=== PATIENT | female | born 1950 | race Caucasian/White ===

== ENCOUNTER → 2019-06-17 00:01 | Outpatient (RCR) | payer MEDICARE, SELFPAY | LOC: ONCMED 06-02 06:06 | PROVIDERS: Family Provider Internal Medicine; Visit Provider Internal Medicine Medical Oncology | DX: Z51.11 Encounter for antineoplastic chemotherapy (principal); C18.4 Malignant neoplasm of transverse colon; C78.02 Secondary malignant neoplasm of left lung; C78.01 Secondary malignant neoplasm of right lung; C78.7 Secondary malignant neoplasm of liver and intrahepatic bile duct; R97.0 Elevated carcinoembryonic antigen [CEA]; I10 Essential (primary) hypertension; E78.5 Hyperlipidemia, unspecified; E11.9 Type 2 diabetes mellitus without complications; F32.9 Major depressive disorder, single episode, unspecified; Z87.19 Personal history of other diseases of the digestive system; Z86.73 Personal history of transient ischemic attack (TIA), and cerebral infarction without residual deficits; Z86.718 Personal history of other venous thrombosis and embolism; Z90.49 Acquired absence of other specified parts of digestive tract; Z86.711 Personal history of pulmonary embolism; Z79.01 Long term (current) use of anticoagulants; Z79.899 Other long term (current) drug therapy ==

== ENCOUNTER 2019-07-03 06:17 | Outpatient (RCR) | payer MEDICARE, SELFPAY ==
[2019-07-01 08:30] LABS: Basophils % 0.4 %; Eosinophils # 0.1 10^3/uL (0.0-0.8); Eosinophils % 2.7 %; Hemoglobin 11.1 g/dL (11.5-15.3); Lymphocytes # 1.5 10^3/uL (0.8-4.8); Lymphocytes % 30.2 %; Mean Corpuscular HGB Conc 32.6 g/dL (30.0-36.0); Mean Corpuscular Hemoglobin 29.8 pg (28.0-34.0); Mean Corpuscular Volume 91.4 fL (81-99); Monocytes # 0.4 10^3/uL (0.2-0.9); Monocytes % 8.7 %; Neutrophils # 2.8 10^3/uL (1.8-7.7); Neutrophils % 57.8 %; Nucleated Red Blood Cells % 0 %; Platelet Count 129 10^3/cmm (130-400); Red Blood Count 3.72 10^6/uL (4.1-5.3); Red Cell Distribution Width 14.7 % (12.1-15.1); White Blood Count 4.8 10^3/uL (4.0-10.0)
[2019-07-01 08:53] LABS: Carcinoembryonic Antigen 40.3 ng/mL (0.0-4.7)
[2019-07-01 09:14] LABS: Alanine Aminotransferase 12 U/L (0-33); Albumin Level 4.6 g/dL (3.5-5.2); Alkaline Phosphatase 68 IU/L (35-105); Anion Gap 15.5 (5-19); Aspartate Amino Transferase 14 U/L (0-32); Blood Urea Nitrogen 17 mg/dL (8-23); Calcium 9.9 mg/Dl (8.8-10.2); Carbon Dioxide 25 mmol/L (22-29); Chloride 101 mmol/L (98-107); Globulin 1.4 g/dL (1.3-4.6); Glomerular Filtration Rate 44.7 mL/min (90-130); Glucose 274 mg/dL (74-106); Potassium 3.5 mmol/L (3.5-5.1); Sodium 138 mmol/L (136-145); Total Bilirubin 0.2 mg/dL (0.15-1.2)
[2019-07-01] MEDS: dextrose 5% 250 ML 75 ML IV (11:00)
--- NOTE | 2019-07-04 11:11 | ONC FU_ITS ---
[facility] Patient Note Patient: Jennifer Worley Unit #: [id number]: 1950 Dictated By: Nash BranhamDate of Visit: Jul 01, 2019 Onc MED Follow-Up/Prog Note Chief Complaint: Colon cancer. 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 She had presented with an abnormal screening colonoscopy. A malignant appearing non-obstructing colonic mass was found at the hepatic flexure. The biopsy was consistent with low-grade, moderately differentiated infiltrating adenocarcinoma. Screening chest x-ray showed mild emphysema. CT of the abdomen/pelvis on 08/05/2015 showed no evidence of distant metastatic disease. The right hepatic colonic neoplasm was seen with an adjacent foci of air consistent with small microperforations which could be related to the recent biopsy during colonoscopy. There was soft tissue prominence in the proximal descending colon and the mild thickening of the duodenum and antrum of the stomach, thought to be gastroenteritis. A small right ovarian dermoid was suspected. Of note, she had a history of duodenitis and pancreatitis in July 2014. Preoperative CEA was not obtained. On 08/06/2015 she underwent an exploratory laparotomy and right hemicolectomy. Her surgical specimen revealed a 6.1 cm adenocarcinoma, focally penetrating through muscularis propria into superficial serosal tissue, with negative margins and positive mild lymphovascular invasion. There was involvement in 3 out of 14 lymph nodes, thus pathologic stage IIIB (T3, N1b, M0). Mismatch repair proteins were proficient. Cycle 1 of adjuvant FOLFOX chemotherapy began on 09/13/2015. Her treatment was complicated by neutropenia, ANC 1300, and platelets 105. In the settings of left arm swelling, on 10/19/2015 ultrasound of the left arm revealed DVT in the left subclavian and jugular vein. The patient began on anticoagulation with apixaban. In the interim her regimen was changed XELOX, cycle 3 on 11/04/2015 and cycle 4 on 11/18/2015. Follow-up ultrasound Doppler of the left arm on 11/23/2015 showed resolution of left arm DVT. During that time she developed severe debilitating left foot pain at the level of metatarsal in the dorsum of the foot and arch. She had no neuropathy in fingers or toes. Her right leg was unaffected. A stress fracture was suspected, but MRI of the left foot just showed osteoarthritis and no acute findings. With the 5th cycle of chemotherapy the treatment was changed back to FOLFOX, but the oxaliplatin was held at that point due to the foot pain. She then continued treatment with infusional 5-FU and leucovorin. She completed 12 cycles of treatment on 03/21/2016. Her other medical illnesses include hypertension, hyperlipidemia, type II diabetes, and depression. She suffered a right hemispheric stroke in 2006. She was treated for pancreatitis in 2014. She had previuosly smoked up to 1 pack of cigarettes daily. She cut down significantly in 2013. She now smokes just very occasionally. INTERIM HISTORY: Surveillance CT scans on 12/21/2016 and on 07/11/2017 showed no evidence of neoplastic process in the chest, abdomen, or pelvis. As of her follow-up visit on 07/12/2017, her CEA has remained stable and she appeared stable clinically. She continued on observation/expectant management. She underwent back surgery in [place] on 01/24/2018. Her surveillance CT scans of the chest, abdomen, and pelvis on 02/22/2018 showed centrilobular emphysematous changes in both lungs but with no evidence of a neoplastic process in the chest. The abdomen/pelvis showed the antrum of the stomach to be overall prominent with heterogeneous wall thickening of uncertain significance. In the right lobe of the liver adjacent to the gallbladder there was abnormal liver parenchyma increase in the prior exam with heterogeneous decreased enhancement suggestive of a metastatic lesion measuring 2.7 cm. An additional focus of abnormal liver parenchyma with heterogeneous decreased enhancement at the level of the falciform ligament involving the adjacent medial and lateral segments of the left lobe measured 3.8 x 4.8 cm. There was no change in the extensive cortical atrophy of the right kidney. With evidence of limited sites of metastatic involvement in the liver, shows referred to Dr. Pichardo in [place] for consideration of liver directed therapy. His recommendation was to initiate systemic therapy and she then returned and began a trial of chemotherapy with FOLFIRI/Avastin, cycle 1 day 1 on 04/09/2018. She tolerated it with acceptable toxicity, and she was able to continue with cycle 2 on 04/23/2018 and with cycle 3 on 05/14/2018. She was seen for a scheduled visit on 05/27/2018. At that time she was having shortness of breath, cough, and slight hemoptysis. Her CT pulmonary angiogram showed a mild burden of bilateral pulmonary artery nonocclusive emboli. Also noted was lateral middle lobe peripheral pneumonia/pneumonitis, with pulmonary infarction felt to be less likely. She began anticoagulation with apixaban. Her chemotherapy was put on hold. She had follow-up at Dr. Pichardo's office on 06/19/2018. Repeat CT abdomen/pelvis showed interval response to therapy with decrease in the size of to hepatic metastatic lesion, one of which had nearly completely resolved. Also noted was development of a small amount of nonocclusive thrombus within the SMV. Infiltrate in the right middle lobe was thought to reflect a developing resolving pneumonia. She was recommended to continue chemotherapy, and she proceeded with 4th cycle on 07/01/2018. The Avastin was omitted due to the thromboembolism. As of cycle 6 on 08/06/2018 there was a significant decline in her CEA level to 10.2 ng/mL. With cycle 8 on 08/25/2018 it had further declined to 6.3 ng/mL. As of 10/07/2018 she began her 10th cycle of treatment. CEA was down 5.4 ng/mL. She was seen for a scheduled visit on 10/19/2018. Her treatment at that point was delayed due to moderately severe neutropenia, ANC 1400. She was able to continue with cycle 11 chemotherapy on 10/29/2018 with dose reductions in both the 5-FU and the irinotecan. As of 12/24/2018 she began cycle 15 of FOLFIRI. At that point her CEA level was stable at 6.3 ng/mL. Her chemotherapy subsequently was put on hold due to a significant increase in her serum creatinine. She was then given regularly scheduled IV hydration. Her restaging CT scans of the chest, abdomen, and pelvis on 02/05/2019 showed evolving pulmonary infarct versus localized atelectasis or scarring in the right middle lobe. There was decreased size of metastatic left and right lobe liver lesions, though comparison was limited due to lack of IV contrast. There was improvement in the previously noted gastric antral thickening. An enlarged right ovary appeared stable. She was referred to Dr. Pichardo for consideration of liver directed therapy. Continued observation/expectant management was recommended. Restaging PET/CT on 03/29/2019 showed residual left hepatic lobe metastasis measuring 2.4 cm with SUV 5.9 compared to 4.6 x 3.1 cm of SUV 8.3 on the prior study from February 2018. The right hepatic lobe metastasis was noted to be less than 1 cm in size and with FDG uptake barely greater than hepatic background activity. There were no other sites of metastatic disease evident on that study. At that point she remained off chemotherapy, and she continued follow-up with Dr. Pichardo. Restaging CT scans of the chest, abdomen, and pelvis on 05/26/2019 showed development of new bilateral pulmonary nodules which were worrisome for pulmonary metastatic disease. 1 of the 2 hepatic lesions was not noted to be slightly larger by a few millimeters. With those findings, she was scheduled to return here for further chemotherapy, and she then continued treatment with cycle 16 of FOLFIRI/Avastin on 06/04/2019. She tolerated it without acute toxicity. Ms Worley is here today for followup. She is due for chemotherapy today. She has had some diarrhea, especially with the recent attempt to increase her Metformin. She attempted to go to 1000 am/500 pm mg daily. She has had more diarrhea, so she decreased it back to 500 mg BID. She states in the past she has had good control with Glyburide and it did not cause diarrhea that she remembers. She states other than that she is doing extremely well. She has no new concerns. She has had no new pain. She states her energy clinic comes and goes but for the most part is good. She denies any nausea or vomiting. She has had no fever or chills. She denies any urinary symptoms. She denies any neuropathy more so than what was already pre-existing. She states her appetite is good and her energy is fair. Her ECOG is 1. Past Medical History: Depression Diabetes type II Hyperlipidemia Hypertension Pancreatitis in 2015 Stroke in 2006 Past Surgical History: Appendectomy Bilateral carpal tunnel Cyst removal. right wrist and left hand Left elbow repair Right oophorectomy Right rotator cuff repair x2 Right salpingectomy Tonsillectomy - AND ADENOIDS Flu vac in 2019 Prevnar 13 in 2019 Influeza vaccine in [address] pichardo in 2018 Right internal juglar Power Port-Dr Gary Pichardo ([place]) in 2018 Back surgery in 2018 Left sided port removal in 2017 Flu Vaccine in 2015 Left subclavian venous access device-Dr Wilcox in 2016 Bilateral eardrums patched in 1965 Allergies: No Known Allergies. Medications: Diclofenac Sodium 1 Tablet (of 75 mg) Tablet, enteric coated Oral b.i.d. PRN Eliquis 1 Tablet (of 5 mg) Oral b.i.d. Escitalopram Oxalate 1 (20 mg) Tablet Oral daily Gabapentin 1 Tablet (of 300 mg) Oral t.i.d. Hydrochlorothiazide 1 (25 mg) Tablet Oral daily Labetalol HCl 1 (300 mg) Tablet Oral b.i.d. Lisinopril 1 (20 mg) Tablet Oral daily MetFORMIN HCl 2 (500 mg) Tablet Oral b.i.d. ProAir HFA Aerosol, solution Inhalation PRN rOPINIRole HCl 1 Tablet (of 0.25 mg) Oral b.i.d. Simvastatin 1 (40 mg) Tablet Oral daily Family History: Ms. Worley's mother is alive: diabetes, dementia, hypertension, high cholesterol. Ms. Worley's father is alive: prostate cancer, diabetes, hypertension, high cholesterol. Ms. Worley has 1 brother who is alive: diabetes, high cholesterol. Social History: Ms. Worley is and she is a disabled. She is an occasional smoker. She drinks occasionally. Ms. Worley reports the following support systems: lives in own house and supportive family/friends willing to assist with needs. Her diet consists of regular meals. She indicates her activity level as: occasional exercise. patient has 3-4 alcoholic beverages per year. Patient states she smokes occasionally. Review Of Symptoms: Constitutional Denies fevers, chills, night sweats, excessive fatigue or weight loss. Tired, but states she was up for the last several nights taking care of her sick dog. Allergic/Immunologic No reactions. Eyes Denies significant visual changes. No diplopia. No amaurosis. ENMT Denies changes in hearing, sore throat, mouth sores, difficulty or changes in swallowing ability, and/or sinus drainage. Hematologic/Lymphatic Denies easy bruising or bleeding. The patient denies any tender or palpable lymph nodes. Respiratory Denies dyspnea on exertion, chest pain, or hemoptysis. Denies orthopnea. Has persistent cough. Cardiovascular Denies anginal chest pain, palpitations or orthopnea. Gastrointestinal Denies nausea, vomiting, GI bleeding, or constipation. Denies change in bowel habits and/or stool color, no heartburn or early satiety. She states she has an increase in diarrhea since trying Metformin dose changes. Genitourinary (F) No hematuria, hesitancy, incontinence, vaginal bleeding, discharge or other problems with urination. Musculoskeletal Denies swelling or redness. No decreased range of motion .States intermittent hip and knee pain-chronic and controlled. Integumentary Denies chronic rashes, inflammation, ulcerations. Neurologic Denies headache, blurred vision, and no areas of focal weakness or numbness. No sensory problems. Psychiatric Denies insomnia, depression, emma or mood swings. Vital Signs: Performed on Jul 01, 2019 09:40 Height - 64.00 in Weight - 170.4 lbs (HIGH) BSA - 1.83 sq.m BMI - 29.25 Temperature - 97.9 F (LOW) Pulse - 76 /min Respiration - 12 /min BP - 155/72 mm(hg) (HIGH) O2 Sat - 98 % Pain - 0 Fatigue - 9,1 - No physically strenuous activity, but ambulatory and able to carry out light or sedentary work (e.g. office work, light house work). (ECOG) Physical Examination: Constitutional Alert, oriented, no acute distress. Skin pink, warm and dry. Head Normocephalic; atraumatic. Eyes Conjunctivae and sclerae are clear and without icterus. Pupils are reactive and equal. ENMT No oral exudates, ulcers, masses, thrush or mucositis. Oropharynx clear. Tongue normal. Neck Supple without masses or thyromegaly. No jugular venous distension. Hematologic/Lymphatic No petechiae or purpura. No tender or palpable lymph nodes in the cervical, supraclavicular area. Respiratory Lungs are clear to auscultation without rhonchi or wheezing. Cardiovascular Regular rate and rhythm of heart without murmurs,clicks, gallops or rubs. Chest Chest is symmetric without chest wall deformities. Right venous access device is unremarkable. Abdomen Non-tender, non-distended, no masses or ascites. Good bowel sounds noted in all quads. No guarding or rebound tenderness. No pulsatile masses. Back/Spine Non-tender to palpation. Extremities No visible deformities, no cyanosis, clubbing or edema. Musculoskeletal No tenderness or swelling, normal range of motion without obvious weakness. Integumentary No rashes or lesions. Neurologic No sensory or motor deficits, normal cerebellar function, normal gait-for her. Psychiatric Alert and oriented times three. Coherent speech. Verbalizes understanding of our discussions today. Laboratory:Test performed on Jul 01, 2019 09:34 CEA 40.3 ng/mL Test performed on Jul 01, 2019 09:32 Glucose 274 mg/dL BUN 17 mg/dL Creatinine 1.2 mg/dL Cr Clearance (Est) 49.99 mL/min Sodium 138 mmol/L Potassium 3.5 mmol/L Chloride 101 mmol/L CO2 25 mmol/L Calcium 9.9 mg/dL Protein, Total 6 g/dL Albumin 4.6 g/dL Globulin 1.4 g/dL Bilirubin, Total 0.2 mg/dL Alkaline Phosphatase 68 IU/L AST (SGOT) 14 IU/L ALT (SGPT) 12 IU/L Test performed on Jul 01, 2019 09:07 WBC 4.8 10^9/L RBC 3.72 10^12/L HGB 11.1 g/dL HCT 34.0 % MCV 91.4 fl MCH 29.8 pg MCHC 32.6 g/dL RDW 14.7 % Platelet Count 129 10^9/L MPV 11.0 fL Neutrophils (Gran) 2.8 10^9/L Lymphocytes 1.5 10^9/L Monocytes 0.4 10^9/L Eosinophils 0.1 10^9/L Basophils 0 10^9/L Manual Lymphocytes 30.2 % Manual Monocytes 8.7 % Manual Eosinophils 2.7 % Manual Basophils 0.4 % NRBCs 0 /100 WBC Test performed on Jun 17, 2019 08:40 Anion Gap 15.6 eGFR 55.1 mL/min Neutrophil % 68.4 % Lymphocyte % 21.8 % Monocyte % 6.9 % Eosinophil % 2.5 % Basophils % 0.2 % Test performed on Jun 04, 2019 13:32 Ua Color YELLOW Ua Appearance CLEAR Ua Glucose 1+ Ua Bilirubin NEG Colored urine samples may result in false positive dipstick reactions. Ua Ketones NEG Ua Specific [place] 1.000 Ua Blood NEG Ua pH 7 Ua Protein NEG Ua Nitrites NEG Ua Leukocyte Esterase NEG Test performed on May 08, 2019 08:40 T4, Free 1.26 ng/dL TSH 1.10 uIU/mL Test performed on Apr 09, 2019 10:40 Magnesium 1.6 mg/dL Test performed on Feb 24, 2019 13:16 Ua Micro: Trans Epith Cells 0-4 /hpf Ua Micro: WBC 10-15 /hpf Ua Micro: RBC 0-4 /hpf Ua Micro: Squam Epith Cells 5-10 /hpf Ua Micro: Bacteria 1+ Impression: 1. 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 Her tumor was found to be MSI stable and to harbor a KRAS mutation (12ASP). 2. She underwent right hemicolectomy on 08/06/2015 and she began adjuvant chemotherapy with modified FOLFOX in August 2015. Her treatment was complicated by port associated deep vein thrombosis and by peripheral neuropathy. Oxaliplatin was held after 4 cycles. She ultimately completed 12 cycles of treatment in March 2016. 3. In February 2018 there was a very significant increase in her CEA level and her surveillance CT scans showed 2 hepatic lesions which were consistent with metastases, one in the right lobe measuring 2.7 cm and one in the left lobe measuring 3.8 x 4.8 cm. As such, her disease at that point was stage IV (M1a). Her other medical illnesses include: 4. Hypertension. 5. Hyperlipidemia. 6. Type II diabetes. 7. Depression. 8. She has a history of pancreatitis in July 2014. 9. She has history of stroke in 2006. She was referred to Dr. Pichardo for consideration of liver directed therapy. He recommended that she first have a trial of chemotherapy. She returned here and began a course of treatment with FOLFIRI/Avastin, cycle 1 day 1 on 04/09/2018. She continued with cycle 2 on 04/23/2018 and was cycle 3 on 05/14/2018. On 05/27/2018 she presented with shortness of breath, cough, and slight hemoptysis. Her CT pulmonary angiogram showed mild burden of bilateral pulmonary artery nonocclusive emboli. There was also suspected right middle lobe pneumonia/pneumonitis, with pulmonary infarction felt to be less likely. She began anticoagulation with apixaban. Her chemotherapy has remain on hold, but she did appear to have response by CEA level and by follow-up CT scan. She continued with cycle 4 of chemotherapy on 07/01/2018, but with omission of Avastin due to the thromboembolism. She had subsequently continued treatment at 2-week intervals. As of 10/07/2018 she began her 10th cycle of treatment. CEA at that point was down to 5.4 ng/mL. Her cycle 11 treatment was delayed one week due to moderately severe neutropenia, ANC 1400. She was then able to continue treatment with dose reductions in both the 5-FU and irinotecan. As of 12/24/2018 she began cycle 15 of FOLFIRI chemotherapy. Her CEA at that point was stable at 6.3 ng/mL. Her treatment subsequently was put on hold due to a significant increase in her serum creatinine. Restaging CT scans on 02/05/2019 showed residual metastatic lesions in the left and right lobe of the liver, decreased compared to the previous study from July 2018. There were no other obvious areas of metastatic disease. She was referred to Dr. Pichardo for consideration of liver directed therapy. Continued observation/expectant management was recommended. During follow-up she has had some improvement in her performance status since stopping the chemotherapy. Her restaging PET/CT from 03/29/2019 showed residual but improved hepatic metastatic lesions compared to the study from February 2018. However, restaging CT scans on 05/26/2019 showed disease progression with development of new pulmonary metastatic disease bilaterally. There was slight enlargement of 1 of the hepatic lesions. There also was a significant increase in her CEA level. She then restarted chemotherapy with cycle 16 of FOLFIRI/Avastin on 06/04/2019. She tolerated it without acute toxicity. She subsequently has had some decline in her activity tolerance. She also has had some nausea, anorexia, and dysguesia. Her blood counts have remained adequate. She is tolerating chemo relatively well overall although she has had some increase in diarrhea which could be related to the metformin as well. Plan: 1. Proceed with cycle 18 of FOLFIRI/Avastin. 2. Continue Protonix as this is helping. 3. continue dexamethasone taper as she tolerated cycle 17 much better. 4. Will add Glyburide 2.5 mg BID and have her decrease Metformin back to 500mg BID due to hyperglycemia and worsening diarrhea with increased Metformin dose (1000 mg hs and 500 mg am daily). This is a common problem with Metformin and chemotherapy with flurouracil and irinotecan. She has been instructed to try Imodium for the diarrhea also. She indicates that she is taking only the 1000 mg at hs. We attempted to get her glyburide 2.5 twice daily but her insurance preferred glipizide therefore she will have extended release 2.5 daily we will start with that and adjust accordingly. 5. Today's labs reviewed in detail and discussed with Ms. Worley and a copy was given to her. White count 4.8 hemoglobin 11.1 platelets 129,000 ANC is 2800 potassium 3.5 random glucose was 274 creatinine 1.2 LFTs are normal and CEA is improved 65 on 1215 2018-40.3 today. 6. We will plan to see her back in 3 weeks and go to give her an extra week off because of her platelet count dropping. Her blood pressure is slightly elevated today to at 155/72. Have asked for a UA for Avastin monitoring with her next visit. She return in 3 weeks with CBC CMP. She will be due for repeat CEA at that time as well. 7. Mrs. Worley was instructed to contact us in the interim should questions or problems arise. 8. She instructed to watch her blood sugars as she has been doing. If she is starting to drop she can decrease the metformin to once daily and then eventually wean off if possible. It will still depend on how her sugars are doing and how her diarrhea is responding. Again she has been instructed to try the Imodium and let us know if that is not helping any loose stools that she continues to have. 9. She is due for follow-up with Dr. Pichardo in August 2019 at which time she will have repeat imaging. Signed By: Nash Branham-, [facility] Gary Multani MD <<Signature on File>>
== END 2019-07-18 23:59 | disposition home or self-care (01) ==
LOC: ONCMED 06:17
PROVIDERS: Family Provider Internal Medicine; Visit Provider Nurse Practitioner
DX: Z51.11 Encounter for antineoplastic chemotherapy (principal); C18.4 Malignant neoplasm of transverse colon; C78.7 Secondary malignant neoplasm of liver and intrahepatic bile duct; C78.01 Secondary malignant neoplasm of right lung; C78.02 Secondary malignant neoplasm of left lung; Z45.2 Encounter for adjustment and management of vascular access device; C77.2 Secondary and unspecified malignant neoplasm of intra-abdominal lymph nodes; I10 Essential (primary) hypertension; E78.5 Hyperlipidemia, unspecified; E11.9 Type 2 diabetes mellitus without complications; F32.9 Major depressive disorder, single episode, unspecified; Z86.73 Personal history of transient ischemic attack (TIA), and cerebral infarction without residual deficits; F17.210 Nicotine dependence, cigarettes, uncomplicated; Z79.84 Long term (current) use of oral hypoglycemic drugs; Z79.01 Long term (current) use of anticoagulants; Z79.899 Other long term (current) drug therapy; Z90.49 Acquired absence of other specified parts of digestive tract; Z87.01 Personal history of pneumonia (recurrent); Z86.718 Personal history of other venous thrombosis and embolism
CPT/HCPCS: 80053; 82378; 85025; 96367; 96368; 96375; 96413; 96416; 96417; 96523; 99214; J0461; J0640; J1100; J2469; J9035; J9206

== ENCOUNTER 2019-08-07 05:42 | Outpatient (RCR) | payer MEDICARE, SELFPAY ==
[2019-07-22 10:08] LABS: Basophils % 0.4 %; Eosinophils # 0.1 10^3/uL (0.0-0.8); Eosinophils % 2.4 %; Hematocrit 38.5 % (37.0-47.0); Hemoglobin 12.4 g/dL (11.5-15.3); Lymphocytes # 1.3 10^3/uL (0.8-4.8); Lymphocytes % 25.9 %; Mean Corpuscular HGB Conc 32.2 g/dL (30.0-36.0); Mean Corpuscular Hemoglobin 30.8 pg (28.0-34.0); Mean Corpuscular Volume 95.5 fL (81-99); Monocytes # 0.4 10^3/uL (0.2-0.9); Monocytes % 8.6 %; Neutrophils # 3.2 10^3/uL (1.8-7.7); Neutrophils % 62.3 %; Nucleated Red Blood Cells % 0 %; Platelet Count 171 10^3/cmm (130-400); Red Blood Count 4.03 10^6/uL (4.1-5.3); Red Cell Distribution Width 15.6 % (12.1-15.1); White Blood Count 5.1 10^3/uL (4.0-10.0)
[2019-07-22 10:19] LABS: Add Urine Microscopic? YES; Bilirubin Urine Neg (NEGATIVE); Blood Urine Neg (Negative); Glucose Urine UA Norm (Normal); Ketones Urine Negative (Negative); Leukocyte Esterase Urine 2+ (Negative); Nitrate Urine Negative (Negative); Protein Urine Neg (Negative); Specific Gravity, Urine 1.005 (1.005-1.030); Urine Appearance Hazy (CLEAR); Urine Color Yellow (Yellow); Urobilinogen Urine Norm (Negative); pH Urine 7 (5-7)
[2019-07-22 10:27] LABS: Carcinoembryonic Antigen 23.6 ng/mL (0.0-4.7)
[2019-07-22 10:35] LABS: Squamous Epithelial Cell Urine 15-25 (0-5); WBC Urine 25-40 /hpf (0-5)
[2019-07-22 10:36] LABS: Add Urine Culture? No; Bacteria Urine TRACE
[2019-07-22 10:38] LABS: Alanine Aminotransferase 16 U/L (0-33); Albumin Level 3.9 g/dL (3.5-5.2); Alkaline Phosphatase 61 IU/L (35-105); Anion Gap 18.3 (5-19); Aspartate Amino Transferase 21 U/L (0-32); Blood Urea Nitrogen 12 mg/dL (8-23); Carbon Dioxide 23 mmol/L (22-29); Chloride 102 mmol/L (98-107); Glomerular Filtration Rate 37.4 mL/min (90-130); Glucose 159 mg/dL (74-106); Potassium 4.3 mmol/L (3.5-5.1); Sodium 139 mmol/L (136-145); Total Bilirubin 0.2 mg/dL (0.15-1.2); Total Protein 6.9 g/dL (6.6-8.7)
[2019-07-22] MEDS: sodium chloride 0.9% 250 ML 300 ML IV (11:50)
[2019-08-05 10:42] LABS: Basophils % 0.2 %; Eosinophils # 0.2 10^3/uL (0.0-0.8); Eosinophils % 3.6 %; Hemoglobin 11.4 g/dL (11.5-15.3); Lymphocytes # 1.5 10^3/uL (0.8-4.8); Lymphocytes % 32.1 %; Mean Corpuscular HGB Conc 31.7 g/dL (30.0-36.0); Mean Corpuscular Hemoglobin 29.8 pg (28.0-34.0); Mean Corpuscular Volume 94.2 fL (81-99); Mean Platelet Volume 10.9 fL (7.4-10.4); Monocytes # 0.4 10^3/uL (0.2-0.9); Monocytes % 7.6 %; Neutrophils # 2.7 10^3/uL (1.8-7.7); Neutrophils % 56.3 %; Nucleated Red Blood Cells % 0 %; Platelet Count 159 10^3/cmm (130-400); Red Blood Count 3.82 10^6/uL (4.1-5.3); Red Cell Distribution Width 15.9 % (12.1-15.1); White Blood Count 4.8 10^3/uL (4.0-10.0)
[2019-08-05 10:53] LABS: Alanine Aminotransferase 11 U/L (0-33); Alkaline Phosphatase 58 IU/L (35-105); Anion Gap 15.9 (5-19); Aspartate Amino Transferase 16 U/L (0-32); Blood Urea Nitrogen 18 mg/dL (8-23); Calcium 10.2 mg/dL (8.5-10.5); Carbon Dioxide 25 mmol/L (22-29); Chloride 102 mmol/L (98-107); Globulin 2.6 g/dL (1.3-4.6); Glomerular Filtration Rate 37.4 mL/min (90-130); Glucose 148 mg/dL (65-115); Potassium 3.9 mmol/L (3.5-5.1); Sodium 139 mmol/L (136-145); Total Bilirubin 0.2 mg/dL (0.15-1.2); Total Protein 6.6 g/dL (6.6-8.7)
[2019-08-05 10:57] LABS: Add Urine Microscopic? YES; Bilirubin Urine Neg (NEGATIVE); Blood Urine Neg (Negative); Glucose Urine UA Norm (Normal); Ketones Urine Negative (Negative); Leukocyte Esterase Urine 2+ (Negative); Nitrate Urine Negative (Negative); Protein Urine Neg (Negative); Specific Gravity, Urine 1.015 (1.005-1.030); Urine Appearance SL Hazy (CLEAR); Urine Color Straw (Yellow); Urobilinogen Urine Norm (Negative)
[2019-08-05 11:03] LABS: Add Urine Culture? No; Bacteria Urine 2+; Mucus Urine TRACE; Squamous Epithelial Cell Urine 40-55 (0-5); Transitional Epi Cells Urine 0-4 /hpf; WBC Urine 55-80 /hpf (0-5)
[2019-08-05] MEDS: sodium chloride 0.9% 250 ML 75 ML IV (12:05)
--- NOTE | 2019-08-06 10:38 | ONC FU_ITS ---
[facility] Patient Note Patient: Jennifer Worley Unit #: [id number]: 1950 Dictated By: Nash BranhamDate of Visit: Aug 05, 2019 Onc MED Follow-Up/Prog Note Chief Complaint: Colon cancer. 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 She had presented with an abnormal screening colonoscopy. A malignant appearing non-obstructing colonic mass was found at the hepatic flexure. The biopsy was consistent with low-grade, moderately differentiated infiltrating adenocarcinoma. Screening chest x-ray showed mild emphysema. CT of the abdomen/pelvis on 08/05/2015 showed no evidence of distant metastatic disease. The right hepatic colonic neoplasm was seen with an adjacent foci of air consistent with small microperforations which could be related to the recent biopsy during colonoscopy. There was soft tissue prominence in the proximal descending colon and the mild thickening of the duodenum and antrum of the stomach, thought to be gastroenteritis. A small right ovarian dermoid was suspected. Of note, she had a history of duodenitis and pancreatitis in July 2014. Preoperative CEA was not obtained. On 08/06/2015 she underwent an exploratory laparotomy and right hemicolectomy. Her surgical specimen revealed a 6.1 cm adenocarcinoma, focally penetrating through muscularis propria into superficial serosal tissue, with negative margins and positive mild lymphovascular invasion. There was involvement in 3 out of 14 lymph nodes, thus pathologic stage IIIB (T3, N1b, M0). Mismatch repair proteins were proficient. Cycle 1 of adjuvant FOLFOX chemotherapy began on 09/13/2015. Her treatment was complicated by neutropenia, ANC 1300, and platelets 105. In the settings of left arm swelling, on 10/19/2015 ultrasound of the left arm revealed DVT in the left subclavian and jugular vein. The patient began on anticoagulation with apixaban. In the interim her regimen was changed XELOX, cycle 3 on 11/04/2015 and cycle 4 on 11/18/2015. Follow-up ultrasound Doppler of the left arm on 11/23/2015 showed resolution of left arm DVT. During that time she developed severe debilitating left foot pain at the level of metatarsal in the dorsum of the foot and arch. She had no neuropathy in fingers or toes. Her right leg was unaffected. A stress fracture was suspected, but MRI of the left foot just showed osteoarthritis and no acute findings. With the 5th cycle of chemotherapy the treatment was changed back to FOLFOX, but the oxaliplatin was held at that point due to the foot pain. She then continued treatment with infusional 5-FU and leucovorin. She completed 12 cycles of treatment on 03/21/2016. Her other medical illnesses include hypertension, hyperlipidemia, type II diabetes, and depression. She suffered a right hemispheric stroke in 2006. She was treated for pancreatitis in 2014. She had previuosly smoked up to 1 pack of cigarettes daily. She cut down significantly in 2013. She now smokes just very occasionally. INTERIM HISTORY: Surveillance CT scans on 12/21/2016 and on 07/11/2017 showed no evidence of neoplastic process in the chest, abdomen, or pelvis. As of her follow-up visit on 07/12/2017, her CEA has remained stable and she appeared stable clinically. She continued on observation/expectant management. She underwent back surgery in [place] on 01/24/2018. Her surveillance CT scans of the chest, abdomen, and pelvis on 02/22/2018 showed centrilobular emphysematous changes in both lungs but with no evidence of a neoplastic process in the chest. The abdomen/pelvis showed the antrum of the stomach to be overall prominent with heterogeneous wall thickening of uncertain significance. In the right lobe of the liver adjacent to the gallbladder there was abnormal liver parenchyma increase in the prior exam with heterogeneous decreased enhancement suggestive of a metastatic lesion measuring 2.7 cm. An additional focus of abnormal liver parenchyma with heterogeneous decreased enhancement at the level of the falciform ligament involving the adjacent medial and lateral segments of the left lobe measured 3.8 x 4.8 cm. There was no change in the extensive cortical atrophy of the right kidney. With evidence of limited sites of metastatic involvement in the liver, shows referred to Dr. Pichardo in [place] for consideration of liver directed therapy. His recommendation was to initiate systemic therapy and she then returned and began a trial of chemotherapy with FOLFIRI/Avastin, cycle 1 day 1 on 04/09/2018. She tolerated it with acceptable toxicity, and she was able to continue with cycle 2 on 04/23/2018 and with cycle 3 on 05/14/2018. She was seen for a scheduled visit on 05/27/2018. At that time she was having shortness of breath, cough, and slight hemoptysis. Her CT pulmonary angiogram showed a mild burden of bilateral pulmonary artery nonocclusive emboli. Also noted was lateral middle lobe peripheral pneumonia/pneumonitis, with pulmonary infarction felt to be less likely. She began anticoagulation with apixaban. Her chemotherapy was put on hold. She had follow-up at Dr. Pichardo's office on 06/19/2018. Repeat CT abdomen/pelvis showed interval response to therapy with decrease in the size of to hepatic metastatic lesion, one of which had nearly completely resolved. Also noted was development of a small amount of nonocclusive thrombus within the SMV. Infiltrate in the right middle lobe was thought to reflect a developing resolving pneumonia. She was recommended to continue chemotherapy, and she proceeded with 4th cycle on 07/01/2018. The Avastin was omitted due to the thromboembolism. As of cycle 6 on 08/06/2018 there was a significant decline in her CEA level to 10.2 ng/mL. With cycle 8 on 08/25/2018 it had further declined to 6.3 ng/mL. As of 10/07/2018 she began her 10th cycle of treatment. CEA was down 5.4 ng/mL. She was seen for a scheduled visit on 10/19/2018. Her treatment at that point was delayed due to moderately severe neutropenia, ANC 1400. She was able to continue with cycle 11 chemotherapy on 10/29/2018 with dose reductions in both the 5-FU and the irinotecan. As of 12/24/2018 she began cycle 15 of FOLFIRI. At that point her CEA level was stable at 6.3 ng/mL. Her chemotherapy subsequently was put on hold due to a significant increase in her serum creatinine. She was then given regularly scheduled IV hydration. Her restaging CT scans of the chest, abdomen, and pelvis on 02/05/2019 showed evolving pulmonary infarct versus localized atelectasis or scarring in the right middle lobe. There was decreased size of metastatic left and right lobe liver lesions, though comparison was limited due to lack of IV contrast. There was improvement in the previously noted gastric antral thickening. An enlarged right ovary appeared stable. She was referred to Dr. Pichardo for consideration of liver directed therapy. Continued observation/expectant management was recommended. Restaging PET/CT on 03/29/2019 showed residual left hepatic lobe metastasis measuring 2.4 cm with SUV 5.9 compared to 4.6 x 3.1 cm of SUV 8.3 on the prior study from February 2018. The right hepatic lobe metastasis was noted to be less than 1 cm in size and with FDG uptake barely greater than hepatic background activity. There were no other sites of metastatic disease evident on that study. At that point she remained off chemotherapy, and she continued follow-up with Dr. Pichardo. Restaging CT scans of the chest, abdomen, and pelvis on 05/26/2019 showed development of new bilateral pulmonary nodules which were worrisome for pulmonary metastatic disease. 1 of the 2 hepatic lesions was not noted to be slightly larger by a few millimeters. With those findings, she was scheduled to return here for further chemotherapy, and she then continued treatment with cycle 16 of FOLFIRI/Avastin on 06/04/2019. She tolerated it without acute toxicity. Ms Worley is here today for followup. She is due for chemotherapy today. She has completed 4 cycles since resuming chemotherapy on 06-04-2019. She is tolerating it well thus far. She states that she has been having nausea for 2 to 3 days starting the day after chemotherapy. It does not sound that she has been consistent with taking Compazine or lorazepam at home. She states that her prescription is old . We will refill that for her today. She states the nausea typically starts maybe the night of chemotherapy and last for 2 to 3 days. We will add additional premeds today as she is only getting Aloxi and dexamethasone as a premed. She states her diarrhea is much better. She states her bowels are pretty well normal for her. She is had no further mouth sores. She states the nausea is now gone and she is eating good. Her energy is fair. She states she is been able to get out and do a few things around in the yard when the weather is good and in the house otherwise. She has no new pain. She denies any lower extremity edema. She states her breathing is normal for her. She is had no increase in shortness of breath. She denies any neuropathy symptoms at present. She states of course she is had the stroke in the past so her feeling in her hands and feet is limited at times. She states however it is not gotten any worse. She has had no fever or chills or any signs of infection for at least the last 72 hours. Her ECOG is 1. Past Medical History: Depression Diabetes type II Hyperlipidemia Hypertension Pancreatitis in 2014 Stroke in 2006 Past Surgical History: Appendectomy Bilateral carpal tunnel Cyst removal. right wrist and left hand Left elbow repair Right oophorectomy Right rotator cuff repair x2 Right salpingectomy Tonsillectomy - AND ADENOIDS Flu vac in 2019 Prevnar 13 in 2019 Influeza vaccine in [address] pichardo in 2018 Right internal juglar Power Port-Dr Gary Pichardo ([place]) in 2018 Back surgery in 2018 Left sided port removal in 2017 Flu Vaccine in 2015 Left subclavian venous access device-Dr Wilcox in 2016 Bilateral eardrums patched in 1965 Allergies: No Known Allergies. Medications: Diclofenac Sodium 1 Tablet (of 75 mg) Tablet, enteric coated Oral b.i.d. PRN Eliquis 1 Tablet (of 5 mg) Oral b.i.d. Escitalopram Oxalate 1 (20 mg) Tablet Oral daily Gabapentin 1 Tablet (of 300 mg) Oral t.i.d. glipiZIDE ER 1 Tablet (of 5 mg) Tablet SR 24 HR Oral daily Hydrochlorothiazide 1 (25 mg) Tablet Oral daily Labetalol HCl 1 (300 mg) Tablet Oral b.i.d. Lisinopril 1 (20 mg) Tablet Oral daily MetFORMIN HCl 2 (500 mg) Tablet Oral b.i.d. ProAir HFA Aerosol, solution Inhalation PRN Protonix 1 Tablet (of 40 mg) Tablet, enteric coated Oral daily rOPINIRole HCl 1 Tablet (of 0.25 mg) Oral b.i.d. Simvastatin 1 (40 mg) Tablet Oral daily Family History: Ms. Worley's mother is alive: diabetes, dementia, hypertension, high cholesterol. Ms. Worley's father is alive: prostate cancer, diabetes, hypertension, high cholesterol. Ms. Worley has 1 brother who is alive: diabetes, high cholesterol. Social History: Ms. Worley is and she is a disabled. She is an occasional smoker. She drinks occasionally. Ms. Worley reports the following support systems: lives in own house and supportive family/friends willing to assist with needs. Her diet consists of regular meals. She indicates her activity level as: occasional exercise. patient has 3-4 alcoholic beverages per year. Patient states she smokes occasionally. Review Of Symptoms: Constitutional Denies fevers, chills, night sweats, excessive fatigue or weight loss. Allergic/Immunologic No reactions. Eyes Denies significant visual changes. No diplopia. No amaurosis. ENMT Denies changes in hearing, sore throat, mouth sores, difficulty or changes in swallowing ability, and/or sinus drainage. Endocrine No thyroid disease or hormone replacement. Denies hot flashes or night sweats. Is diabetic. Hematologic/Lymphatic Denies easy bruising or bleeding. The patient denies any tender or palpable lymph nodes. Respiratory Denies dyspnea on exertion, chest pain, or hemoptysis. Denies orthopnea. Cardiovascular Denies anginal chest pain, palpitations or orthopnea. Gastrointestinal Denies nausea, vomiting, GI bleeding, or constipation. Denies change in bowel habits and/or stool color, no heartburn or early satiety. Genitourinary (F) No hematuria, hesitancy, incontinence, vaginal bleeding, discharge or other problems with urination. Musculoskeletal Denies swelling or redness. No decreased range of motion .States intermittent hip and knee pain-chronic and controlled. Integumentary Denies chronic rashes, inflammation, ulcerations. Neurologic Denies headache, blurred vision, and no areas of focal weakness or numbness. No sensory problems. Psychiatric Denies insomnia, depression, emma or mood swings. Vital Signs: Performed on Aug 05, 2019 11:27 Height - 64.00 in Weight - 167.4 lbs BSA - 1.81 sq.m BMI - 28.73 Temperature - 96.5 F (LOW) Pulse - 85 /min Respiration - 16 /min BP - 159/88 mm(hg) (HIGH) O2 Sat - 99 % Pain - 0 Fatigue - 4,1 - No physically strenuous activity, but ambulatory and able to carry out light or sedentary work (e.g. office work, light house work). (ECOG) Physical Examination: Constitutional Alert, oriented, no acute distress. Skin pink, warm and dry. Head Normocephalic; atraumatic. Eyes Conjunctivae and sclerae are clear and without icterus. Pupils are reactive and equal. ENMT No oral exudates, ulcers, masses, thrush or mucositis. Oropharynx clear. Tongue normal. Neck Supple without masses or thyromegaly. No jugular venous distension. Hematologic/Lymphatic No petechiae or purpura. No tender or palpable lymph nodes in the cervical, supraclavicular area. Respiratory Lungs are clear to auscultation without rhonchi or wheezing. Cardiovascular Regular rate and rhythm of heart without murmurs,clicks, gallops or rubs. Chest Chest is symmetric without chest wall deformities. Right venous access device is unremarkable. Abdomen Non-tender, non-distended, no masses or ascites. Good bowel sounds noted in all quads. No guarding or rebound tenderness. No pulsatile masses. Back/Spine Non-tender to palpation. Extremities No visible deformities, no cyanosis, clubbing or edema. Musculoskeletal No tenderness or swelling, normal range of motion without obvious weakness. Integumentary No rashes or lesions. Neurologic No sensory or motor deficits, normal cerebellar function, normal gait-for her. Psychiatric Alert and oriented times three. Coherent speech. Verbalizes understanding of our discussions today. Laboratory:Test performed on Aug 05, 2019 10:26 Ua Micro: Trans Epith Cells 0-4 /hpf Ua Micro: WBC 55-80 /hpf Ua Micro: RBC NONE /hpf Ua Micro: Squam Epith Cells 40-55 CULTURE NOT INDICATED DUE TO >10 EPITHELIAL CELLS PRESENT ON MICROSCOPIC EXAM. POSSIBLE SPECIMEN CONTAMINATION. Ua Micro: Bacteria 2+ Ua Micro: Mucous TRACE Test performed on Aug 05, 2019 10:11 Sodium 139 mmol/L Potassium 3.9 mmol/L Chloride 102 mmol/L CO2 25 mmol/L Anion Gap 15.9 BUN 18 mg/dL Creatinine 1.4 mg/dL Cr Clearance (Est) 42.8500 mL/min eGFR 37.4 mL/min Glucose 148 mg/dL Calcium 10.2 mg/dL Protein, Total 6.6 g/dL Albumin 4.0 g/dL Globulin 2.6 g/dL Bilirubin, Total 0.2 mg/dL ALT (SGPT) 11 U/L AST (SGOT) 16 U/L Alkaline Phosphatase 58 IU/L WBC 4.8 10 3/uL RBC 3.82 10 6/uL HGB 11.4 g/dL HCT 36.0 % MCV 94.2 fL MCH 29.8 pg MCHC 31.7 g/dL RDW 15.9 % Platelet Count 159 10 3/cmm MPV 10.9 fL Neutrophils 2.7 10 3/uL Lymphocytes 1.5 10 3/uL Monocytes 0.4 10 3/uL Eosinophils 0.2 10 3/uL Basophils 0.0 10 3/uL Neutrophil % 56.3 % Lymphocyte % 32.1 % Monocyte % 7.6 % Eosinophil % 3.6 % Basophils % 0.2 % Test performed on Jul 22, 2019 09:34 CEA 23.6 ng/mL Impression: 1. 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 Her tumor was found to be MSI stable and to harbor a KRAS mutation (12ASP). 2. She underwent right hemicolectomy on 08/06/2015 and she began adjuvant chemotherapy with modified FOLFOX in August 2015. Her treatment was complicated by port associated deep vein thrombosis and by peripheral neuropathy. Oxaliplatin was held after 4 cycles. She ultimately completed 12 cycles of treatment in March 2016. 3. In February 2018 there was a very significant increase in her CEA level and her surveillance CT scans showed 2 hepatic lesions which were consistent with metastases, one in the right lobe measuring 2.7 cm and one in the left lobe measuring 3.8 x 4.8 cm. As such, her disease at that point was stage IV (M1a). Her other medical illnesses include: 4. Hypertension. 5. Hyperlipidemia. 6. Type II diabetes. 7. Depression. 8. She has a history of pancreatitis in July 2014. 9. She has history of stroke in 2006. She was referred to Dr. Pichardo for consideration of liver directed therapy. He recommended that she first have a trial of chemotherapy. She returned here and began a course of treatment with FOLFIRI/Avastin, cycle 1 day 1 on 04/09/2018. She continued with cycle 2 on 04/23/2018 and was cycle 3 on 05/14/2018. On 05/27/2018 she presented with shortness of breath, cough, and slight hemoptysis. Her CT pulmonary angiogram showed mild burden of bilateral pulmonary artery nonocclusive emboli. There was also suspected right middle lobe pneumonia/pneumonitis, with pulmonary infarction felt to be less likely. She began anticoagulation with apixaban. Her chemotherapy has remain on hold, but she did appear to have response by CEA level and by follow-up CT scan. She continued with cycle 4 of chemotherapy on 07/01/2018, but with omission of Avastin due to the thromboembolism. She had subsequently continued treatment at 2-week intervals. As of 10/07/2018 she began her 10th cycle of treatment. CEA at that point was down to 5.4 ng/mL. Her cycle 11 treatment was delayed one week due to moderately severe neutropenia, ANC 1400. She was then able to continue treatment with dose reductions in both the 5-FU and irinotecan. As of 12/24/2018 she began cycle 15 of FOLFIRI chemotherapy. Her CEA at that point was stable at 6.3 ng/mL. Her treatment subsequently was put on hold due to a significant increase in her serum creatinine. Restaging CT scans on 02/05/2019 showed residual metastatic lesions in the left and right lobe of the liver, decreased compared to the previous study from July 2018. There were no other obvious areas of metastatic disease. She was referred to Dr. Pichardo for consideration of liver directed therapy. Continued observation/expectant management was recommended. During follow-up she has had some improvement in her performance status since stopping the chemotherapy. Her restaging PET/CT from 03/29/2019 showed residual but improved hepatic metastatic lesions compared to the study from February 2018. However, restaging CT scans on 05/26/2019 showed disease progression with development of new pulmonary metastatic disease bilaterally. There was slight enlargement of 1 of the hepatic lesions. There also was a significant increase in her CEA level. She then restarted chemotherapy with cycle 16 of FOLFIRI/Avastin on 06/04/2019. She tolerated it without acute toxicity. She subsequently has had some decline in her activity tolerance. She also has had some nausea, anorexia, and dysguesia. Her blood counts have remained adequate. She is tolerating chemo relatively well overall although she had had some increase in diarrhea which could be related to the metformin as well. The diarrhea has improved after cycle 18 and she is currently doing well. Plan: 1. Proceed with cycle 20 of FOLFIRI/Avastin. 2. I added Emend, Pepcid and increased the dexamethasone to12 mg on her prmeds today to try to avoid the day 2 & 3 nausea. 3. I encouraged her to try the Compazine and lorazepam as needed at home. We will refill it for her today as she states her prescription is old . 4. Continue glipizide extended release 2.5 daily. I will request [facility] A1c for her next visit and her glipizide may need adjustment based on that result. 5. Today's labs reviewed in detail and discussed with Ms. Worley and a copy was given to her. White count 4.8 hemoglobin 11.4 platelets 159,000 ANC is 2700 potassium 3.9 random glucose was 148 creatinine 1.4 LFTs are normal. 6. We will plan to see her back in 2 weeks with CBC, CMP, CEA and HgbA1c. 7. Mrs. Worley was instructed to contact us in the interim should questions or problems arise. 8. She is due for follow-up with Dr. Pichardo in August 2019 at which time she will have repeat imaging. 9. Her urine is negative for protein and her BP is stable for her (Avastin monitoring). Signed By: Nash Branham-, [facility] Gary Multani MD <<Signature on File>>
[2019-08-07] MEDS: sodium chloride 0.9% 1,000 ML 999 ML IV (14:18)
== END 2019-08-16 23:59 | disposition home or self-care (01) ==
LOC: ONCMED 05:42
PROVIDERS: Internal Medicine Medical Oncology; Family Provider Internal Medicine; Visit Provider Nurse Practitioner
DX: Z51.11 Encounter for antineoplastic chemotherapy (principal); C78.02 Secondary malignant neoplasm of left lung; C78.7 Secondary malignant neoplasm of liver and intrahepatic bile duct; C78.01 Secondary malignant neoplasm of right lung; Z85.038 Personal history of other malignant neoplasm of large intestine; Z45.2 Encounter for adjustment and management of vascular access device; I10 Essential (primary) hypertension; E78.5 Hyperlipidemia, unspecified; E11.9 Type 2 diabetes mellitus without complications; F32.9 Major depressive disorder, single episode, unspecified; F17.210 Nicotine dependence, cigarettes, uncomplicated; Z79.01 Long term (current) use of anticoagulants; Z79.84 Long term (current) use of oral hypoglycemic drugs; Z79.899 Other long term (current) drug therapy; Z86.73 Personal history of transient ischemic attack (TIA), and cerebral infarction without residual deficits; Z90.49 Acquired absence of other specified parts of digestive tract; Z86.718 Personal history of other venous thrombosis and embolism
CPT/HCPCS: 36415; 80053; 81001; 82378; 85025; 96361; 96365; 96367; 96368; 96375; 96413; 96415; 96416; 96417; 96523; 99214; J0461; J0640; J1100; J1453; J2405; J2469; J3490; J7030; J7050; J9035; J9206

== ENCOUNTER 2019-09-10 05:45 | Outpatient (RCR) | payer MEDICARE, SELFPAY ==
[2019-08-19 10:49] LABS: Basophils % 0.5 %; Eosinophils # 0.1 10^3/uL (0.0-0.8); Eosinophils % 1.9 %; Hematocrit 36.3 % (37.0-47.0); Hemoglobin 11.6 g/dL (11.5-15.3); Lymphocytes # 0.9 10^3/uL (0.8-4.8); Lymphocytes % 25.8 %; Mean Corpuscular Hemoglobin 29.7 pg (28.0-34.0); Mean Corpuscular Volume 93.1 fL (81-99); Mean Platelet Volume 11.1 fL (7.4-10.4); Monocytes # 0.3 10^3/uL (0.2-0.9); Monocytes % 9.3 %; Neutrophils # 2.3 10^3/uL (1.8-7.7); Neutrophils % 62.2 %; Nucleated Red Blood Cells % 0 %; Platelet Count 124 10^3/cmm (130-400); Red Cell Distribution Width 16.2 % (12.1-15.1); White Blood Count 3.6 10^3/uL (4.0-10.0)
[2019-08-19 11:16] LABS: Carcinoembryonic Antigen 19.1 ng/mL (0.0-4.7)
[2019-08-19 11:27] LABS: Alanine Aminotransferase 13 U/L (0-33); Albumin Level 4.4 g/dL (3.5-5.2); Alkaline Phosphatase 56 IU/L (35-105); Anion Gap 15.1 (5-19); Aspartate Amino Transferase 19 U/L (0-32); Blood Urea Nitrogen 12 mg/dL (8-23); Calcium 10.9 mg/dL (8.5-10.5); Carbon Dioxide 26 mmol/L (22-29); Chloride 101 mmol/L (98-107); Globulin 2.6 g/dL (1.3-4.6); Glomerular Filtration Rate 49.4 mL/min (90-130); Glucose 165 mg/dL (65-115); Potassium 4.1 mmol/L (3.5-5.1); Sodium 138 mmol/L (136-145); Total Bilirubin 0.5 mg/dL (0.15-1.2)
[2019-08-19] MEDS: sodium chloride 0.9% 1,000 ML 999 ML IV (12:00)
--- NOTE | 2019-08-24 13:56 | ONC FU_ITS ---
[facility] Patient Note Patient: Jennifer Worley Unit #: [id number]: 1950 Dictated By: Nash BranhamDate of Visit: Aug 19, 2019 Onc MED Follow-Up/Prog Note Chief Complaint: Colon cancer. 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 She had presented with an abnormal screening colonoscopy. A malignant appearing non-obstructing colonic mass was found at the hepatic flexure. The biopsy was consistent with low-grade, moderately differentiated infiltrating adenocarcinoma. Screening chest x-ray showed mild emphysema. CT of the abdomen/pelvis on 08/05/2015 showed no evidence of distant metastatic disease. The right hepatic colonic neoplasm was seen with an adjacent foci of air consistent with small microperforations which could be related to the recent biopsy during colonoscopy. There was soft tissue prominence in the proximal descending colon and the mild thickening of the duodenum and antrum of the stomach, thought to be gastroenteritis. A small right ovarian dermoid was suspected. Of note, she had a history of duodenitis and pancreatitis in July 2014. Preoperative CEA was not obtained. On 08/06/2015 she underwent an exploratory laparotomy and right hemicolectomy. Her surgical specimen revealed a 6.1 cm adenocarcinoma, focally penetrating through muscularis propria into superficial serosal tissue, with negative margins and positive mild lymphovascular invasion. There was involvement in 3 out of 14 lymph nodes, thus pathologic stage IIIB (T3, N1b, M0). Mismatch repair proteins were proficient. Cycle 1 of adjuvant FOLFOX chemotherapy began on 09/13/2015. Her treatment was complicated by neutropenia, ANC 1300, and platelets 105. In the settings of left arm swelling, on 10/19/2015 ultrasound of the left arm revealed DVT in the left subclavian and jugular vein. The patient began on anticoagulation with apixaban. In the interim her regimen was changed XELOX, cycle 3 on 11/04/2015 and cycle 4 on 11/18/2015. Follow-up ultrasound Doppler of the left arm on 11/23/2015 showed resolution of left arm DVT. During that time she developed severe debilitating left foot pain at the level of metatarsal in the dorsum of the foot and arch. She had no neuropathy in fingers or toes. Her right leg was unaffected. A stress fracture was suspected, but MRI of the left foot just showed osteoarthritis and no acute findings. With the 5th cycle of chemotherapy the treatment was changed back to FOLFOX, but the oxaliplatin was held at that point due to the foot pain. She then continued treatment with infusional 5-FU and leucovorin. She completed 12 cycles of treatment on 03/21/2016. Her other medical illnesses include hypertension, hyperlipidemia, type II diabetes, and depression. She suffered a right hemispheric stroke in 2006. She was treated for pancreatitis in 2014. She had previuosly smoked up to 1 pack of cigarettes daily. She cut down significantly in 2013. She now smokes just very occasionally. INTERIM HISTORY: Surveillance CT scans on 12/21/2016 and on 07/11/2017 showed no evidence of neoplastic process in the chest, abdomen, or pelvis. As of her follow-up visit on 07/12/2017, her CEA has remained stable and she appeared stable clinically. She continued on observation/expectant management. She underwent back surgery in [place] on 01/24/2018. Her surveillance CT scans of the chest, abdomen, and pelvis on 02/22/2018 showed centrilobular emphysematous changes in both lungs but with no evidence of a neoplastic process in the chest. The abdomen/pelvis showed the antrum of the stomach to be overall prominent with heterogeneous wall thickening of uncertain significance. In the right lobe of the liver adjacent to the gallbladder there was abnormal liver parenchyma increase in the prior exam with heterogeneous decreased enhancement suggestive of a metastatic lesion measuring 2.7 cm. An additional focus of abnormal liver parenchyma with heterogeneous decreased enhancement at the level of the falciform ligament involving the adjacent medial and lateral segments of the left lobe measured 3.8 x 4.8 cm. There was no change in the extensive cortical atrophy of the right kidney. With evidence of limited sites of metastatic involvement in the liver, shows referred to Dr. Pichardo in [place] for consideration of liver directed therapy. His recommendation was to initiate systemic therapy and she then returned and began a trial of chemotherapy with FOLFIRI/Avastin, cycle 1 day 1 on 04/09/2018. She tolerated it with acceptable toxicity, and she was able to continue with cycle 2 on 04/23/2018 and with cycle 3 on 05/14/2018. She was seen for a scheduled visit on 05/27/2018. At that time she was having shortness of breath, cough, and slight hemoptysis. Her CT pulmonary angiogram showed a mild burden of bilateral pulmonary artery nonocclusive emboli. Also noted was lateral middle lobe peripheral pneumonia/pneumonitis, with pulmonary infarction felt to be less likely. She began anticoagulation with apixaban. Her chemotherapy was put on hold. She had follow-up at Dr. Pichardo's office on 06/19/2018. Repeat CT abdomen/pelvis showed interval response to therapy with decrease in the size of to hepatic metastatic lesion, one of which had nearly completely resolved. Also noted was development of a small amount of nonocclusive thrombus within the SMV. Infiltrate in the right middle lobe was thought to reflect a developing resolving pneumonia. She was recommended to continue chemotherapy, and she proceeded with 4th cycle on 07/01/2018. The Avastin was omitted due to the thromboembolism. As of cycle 6 on 08/06/2018 there was a significant decline in her CEA level to 10.2 ng/mL. With cycle 8 on 08/25/2018 it had further declined to 6.3 ng/mL. As of 10/07/2018 she began her 10th cycle of treatment. CEA was down 5.4 ng/mL. She was seen for a scheduled visit on 10/19/2018. Her treatment at that point was delayed due to moderately severe neutropenia, ANC 1400. She was able to continue with cycle 11 chemotherapy on 10/29/2018 with dose reductions in both the 5-FU and the irinotecan. As of 12/24/2018 she began cycle 15 of FOLFIRI. At that point her CEA level was stable at 6.3 ng/mL. Her chemotherapy subsequently was put on hold due to a significant increase in her serum creatinine. She was then given regularly scheduled IV hydration. Her restaging CT scans of the chest, abdomen, and pelvis on 02/05/2019 showed evolving pulmonary infarct versus localized atelectasis or scarring in the right middle lobe. There was decreased size of metastatic left and right lobe liver lesions, though comparison was limited due to lack of IV contrast. There was improvement in the previously noted gastric antral thickening. An enlarged right ovary appeared stable. She was referred to Dr. Pichardo for consideration of liver directed therapy. Continued observation/expectant management was recommended. Restaging PET/CT on 03/29/2019 showed residual left hepatic lobe metastasis measuring 2.4 cm with SUV 5.9 compared to 4.6 x 3.1 cm of SUV 8.3 on the prior study from February 2018. The right hepatic lobe metastasis was noted to be less than 1 cm in size and with FDG uptake barely greater than hepatic background activity. There were no other sites of metastatic disease evident on that study. At that point she remained off chemotherapy, and she continued follow-up with Dr. Pichardo. Restaging CT scans of the chest, abdomen, and pelvis on 05/26/2019 showed development of new bilateral pulmonary nodules which were worrisome for pulmonary metastatic disease. 1 of the 2 hepatic lesions was not noted to be slightly larger by a few millimeters. With those findings, she was scheduled to return here for further chemotherapy, and she then continued treatment with cycle 16 of FOLFIRI/Avastin on 06/04/2019. She tolerated it without acute toxicity. Ms Worley is here today for followup. She is due for chemotherapy today. She has completed 5 cycles since resuming chemotherapy on 06-04-2019. I she is due for cycle 6 today. She states that she has been really draggy and really tired. She states that at times she does feel so weak overall that is just hard to walk. She states she is had to take baby steps to feel secure in her walking at times. She states it was hard for her to walk into [facility] and get her usual seat. She states she does felt really weak. She states typically she will have a day or so that but it gets better. However with this cycle it has not gotten better. She states she is just weak all over and draggy. She denies any new pain. She is had no fever or chills. She denies nausea or vomiting. She states her diarrhea is about the same for her. She states actually is some better overall. She denies any particular neuropathy. She denies any mouth sores, sore throat or difficulty swallowing. She denies any rashes. She has not noted any change in her urinary patterns. Her ECOG is 2. Past Medical History: Depression Diabetes type II Hyperlipidemia Hypertension Pancreatitis in 2015 Stroke in 2006 Past Surgical History: Appendectomy Bilateral carpal tunnel Cyst removal. right wrist and left hand Left elbow repair Right oophorectomy Right rotator cuff repair x2 Right salpingectomy Tonsillectomy - AND ADENOIDS Flu vac in 2019 Prevnar 13 in 2019 Influeza vaccine in [address] pichardo in 2018 Right internal juglar Power Port-Dr Gary Pichardo ([place]) in 2018 Back surgery in 2018 Left sided port removal in 2017 Flu Vaccine in 2016 Left subclavian venous access device-Dr Wilcox in 2015 Bilateral eardrums patched in 1965 Allergies: No Known Allergies. Medications: Diclofenac Sodium 1 Tablet (of 75 mg) Tablet, enteric coated Oral b.i.d. PRN Eliquis 1 Tablet (of 5 mg) Oral b.i.d. Escitalopram Oxalate 1 (20 mg) Tablet Oral daily Gabapentin 1 Tablet (of 300 mg) Oral t.i.d. glipiZIDE ER 1 Tablet (of 5 mg) Tablet SR 24 HR Oral daily Hydrochlorothiazide 1 (25 mg) Tablet Oral daily Labetalol HCl 1 (300 mg) Tablet Oral b.i.d. Lisinopril 1 (20 mg) Tablet Oral daily MetFORMIN HCl 2 (500 mg) Tablet Oral b.i.d. ProAir HFA Aerosol, solution Inhalation PRN Protonix 1 Tablet (of 40 mg) Tablet, enteric coated Oral daily rOPINIRole HCl 1 Tablet (of 0.25 mg) Oral b.i.d. Simvastatin 1 (40 mg) Tablet Oral daily Family History: Ms. Worley's mother is alive: diabetes, dementia, hypertension, high cholesterol. Ms. Worley's father is alive: prostate cancer, diabetes, hypertension, high cholesterol. Ms. Worley has 1 brother who is alive: diabetes, high cholesterol. Social History: Ms. Worley is and she is a disabled. She is an occasional smoker. She drinks occasionally. Ms. Worley reports the following support systems: lives in own house and supportive family/friends willing to assist with needs. Her diet consists of regular meals. She indicates her activity level as: occasional exercise. patient has 3-4 alcoholic beverages per year. Patient states she smokes occasionally. Review Of Symptoms: Constitutional Denies fevers, chills, night sweats, or weight loss. She has had generalized weakness. She states at times it is hard for her to walk because her legs feel weak. Allergic/Immunologic No reactions. Eyes Denies significant visual changes. No diplopia. No amaurosis. ENMT Denies changes in hearing, sore throat, mouth sores, difficulty or changes in swallowing ability, and/or sinus drainage. Hematologic/Lymphatic Denies easy bruising or bleeding. The patient denies any tender or palpable lymph nodes. Respiratory Denies dyspnea on exertion, chest pain, or hemoptysis. Denies orthopnea. Cardiovascular Denies anginal chest pain, palpitations or orthopnea. Gastrointestinal Denies nausea, vomiting, GI bleeding, or constipation. Denies change in bowel habits and/or stool color, no heartburn or early satiety. Genitourinary (F) No hematuria, hesitancy, incontinence, vaginal bleeding, discharge or other problems with urination. Musculoskeletal Denies swelling or redness. No decreased range of motion .States intermittent hip and knee pain-chronic and controlled. Integumentary Denies chronic rashes, inflammation, ulcerations. Neurologic Denies headache, blurred vision, and no areas of focal weakness or numbness. No sensory problems. Psychiatric Denies insomnia, depression, emma or mood swings. Vital Signs: Performed on Aug 19, 2019 11:33 Height - 64.00 in Weight - 167.6 lbs (HIGH) BSA - 1.81 sq.m BMI - 28.77 Temperature - 98.4 F Pulse - 79 /min Respiration - 14 /min BP - 152/79 mm(hg) (HIGH) O2 Sat - 98 % Pain - 0 Fatigue - 5,2 - Ambulatory/capable of all self-care, unable to perform any work activities. Up and about more than 50% of waking hours. (ECOG) Physical Examination: Constitutional Alert, oriented, no acute distress. Skin pink, warm and dry. Head Normocephalic; atraumatic. Eyes Conjunctivae and sclerae are clear and without icterus. Pupils are reactive and equal. ENMT No oral exudates, ulcers, masses, thrush or mucositis. Oropharynx clear. Tongue normal. Neck Supple without masses or thyromegaly. No jugular venous distension. Hematologic/Lymphatic No petechiae or purpura. No tender or palpable lymph nodes in the cervical, supraclavicular area. Respiratory Lungs are clear to auscultation without rhonchi or wheezing. Cardiovascular Regular rate and rhythm of heart without murmurs,clicks, gallops or rubs. Chest Chest is symmetric without chest wall deformities. Right venous access device is unremarkable. Abdomen Non-tender, non-distended, no masses or ascites. Good bowel sounds noted in all quads. No guarding or rebound tenderness. No pulsatile masses. Back/Spine Non-tender to palpation. Extremities No visible deformities, no cyanosis, clubbing or edema. Musculoskeletal No tenderness or swelling, normal range of motion without obvious weakness. Integumentary No rashes or lesions. Neurologic No sensory or motor deficits, normal cerebellar function, normal gait-for her. Psychiatric Alert and oriented times three. Coherent speech. Verbalizes understanding of our discussions today. Laboratory:Test performed on Aug 19, 2019 10:10 Sodium 138 mmol/L Potassium 4.1 mmol/L Chloride 101 mmol/L CO2 26 mmol/L Anion Gap 15.1 BUN 12 mg/dL Creatinine 1.1 mg/dL Cr Clearance (Est) 54.5400 mL/min eGFR 49.4 mL/min Glucose 165 mg/dL Calcium 10.9 mg/dL Protein, Total 7.0 g/dL Albumin 4.4 g/dL Globulin 2.6 g/dL Bilirubin, Total 0.5 mg/dL ALT (SGPT) 13 U/L AST (SGOT) 19 U/L Alkaline Phosphatase 56 IU/L WBC 3.6 10 3/uL RBC 3.90 10 6/uL HGB 11.6 g/dL HCT 36.3 % MCV 93.1 fL MCH 29.7 pg MCHC 32.0 g/dL RDW 16.2 % Platelet Count 124 10 3/cmm MPV 11.1 fL Neutrophils 2.3 10 3/uL Lymphocytes 0.9 10 3/uL Monocytes 0.3 10 3/uL Eosinophils 0.1 10 3/uL Basophils 0.0 10 3/uL Neutrophil % 62.2 % Lymphocyte % 25.8 % Monocyte % 9.3 % Eosinophil % 1.9 % Basophils % 0.5 % CEA 19.1 ng/mL Impression: 1. 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 Her tumor was found to be MSI stable and to harbor a KRAS mutation (12ASP). 2. She underwent right hemicolectomy on 08/06/2015 and she began adjuvant chemotherapy with modified FOLFOX in August 2015. Her treatment was complicated by port associated deep vein thrombosis and by peripheral neuropathy. Oxaliplatin was held after 4 cycles. She ultimately completed 12 cycles of treatment in March 2016. 3. In February 2018 there was a very significant increase in her CEA level and her surveillance CT scans showed 2 hepatic lesions which were consistent with metastases, one in the right lobe measuring 2.7 cm and one in the left lobe measuring 3.8 x 4.8 cm. As such, her disease at that point was stage IV (M1a). Her other medical illnesses include: 4. Hypertension. 5. Hyperlipidemia. 6. Type II diabetes. 7. Depression. 8. She has a history of pancreatitis in July 2014. 9. She has history of stroke in 2006. She was referred to Dr. Pichardo for consideration of liver directed therapy. He recommended that she first have a trial of chemotherapy. She returned here and began a course of treatment with FOLFIRI/Avastin, cycle 1 day 1 on 04/09/2018. She continued with cycle 2 on 04/23/2018 and was cycle 3 on 05/14/2018. On 05/27/2018 she presented with shortness of breath, cough, and slight hemoptysis. Her CT pulmonary angiogram showed mild burden of bilateral pulmonary artery nonocclusive emboli. There was also suspected right middle lobe pneumonia/pneumonitis, with pulmonary infarction felt to be less likely. She began anticoagulation with apixaban. Her chemotherapy has remain on hold, but she did appear to have response by CEA level and by follow-up CT scan. She continued with cycle 4 of chemotherapy on 07/01/2018, but with omission of Avastin due to the thromboembolism. She had subsequently continued treatment at 2-week intervals. As of 10/07/2018 she began her 10th cycle of treatment. CEA at that point was down to 5.4 ng/mL. Her cycle 11 treatment was delayed one week due to moderately severe neutropenia, ANC 1400. She was then able to continue treatment with dose reductions in both the 5-FU and irinotecan. As of 12/24/2018 she began cycle 15 of FOLFIRI chemotherapy. Her CEA at that point was stable at 6.3 ng/mL. Her treatment subsequently was put on hold due to a significant increase in her serum creatinine. Restaging CT scans on 02/05/2019 showed residual metastatic lesions in the left and right lobe of the liver, decreased compared to the previous study from July 2018. There were no other obvious areas of metastatic disease. She was referred to Dr. Pichardo for consideration of liver directed therapy. Continued observation/expectant management was recommended. During follow-up she has had some improvement in her performance status since stopping the chemotherapy. Her restaging PET/CT from 03/29/2019 showed residual but improved hepatic metastatic lesions compared to the study from February 2018. However, restaging CT scans on 05/26/2019 showed disease progression with development of new pulmonary metastatic disease bilaterally. There was slight enlargement of 1 of the hepatic lesions. There also was a significant increase in her CEA level. She then restarted chemotherapy with cycle 16 of FOLFIRI/Avastin on 06/04/2019. She tolerated it without acute toxicity. She subsequently has had some decline in her activity tolerance. She also has had some nausea, anorexia, and dysguesia. Her blood counts have remained adequate. She is tolerating chemo relatively well overall although she had had some increase in diarrhea which could be related to the metformin as well. The diarrhea has improved after cycle 18 and she had been doing well. She presents today with declining performance status and generalized weakness. She states her legs are weak and is hard for her to walk. She states is really not neuropathy does feel weak in general. She has not had any falls but states that she has felt like she might at time or two. Plan: 1. Hold planned cycle 21 of FOLFIRI/Avastin due to significant decline performance status and overall generalized weakness. 2. She will have restaging with Dr. Pichardo's office next week. This is already scheduled. 3. Labs from today were reviewed in detail and discussed with Mrs. Worley and a copy was given to her. WBC is 3.6, hemoglobin 11.6, platelets 124,000 ANC is 2300 creatinine is 1.1 and LFTs are normal. Her CEA is 19.1. It was 23.6 on July 22, 2019 and 40.3 on July 01, 2019. 4. Continue glipizide extended release 2.5 daily. I will again request a Hgb A1c for her next visit and her glipizide may need adjustment based on that result. 5. We will plan to see her back in 2 weeks with CBC, CMP, CEA and HgbA1c. Will be after her restaging visit with Dr. Pichardo. We will adjust her plan of care as needed based on that visit. 7. Mrs. Worley was instructed to contact us in the interim should questions or problems arise. Signed By: Nash Branham-, AOCNP Gary Multani MD <<Signature on File>>
[2019-09-03 08:33] LABS: Basophils % 0.3 %; Eosinophils # 0.2 10^3/uL (0.0-0.8); Eosinophils % 4.1 %; Hematocrit 34.2 % (37.0-47.0); Hemoglobin 10.9 g/dL (11.5-15.3); Lymphocytes # 1.2 10^3/uL (0.8-4.8); Lymphocytes % 30.3 %; Mean Corpuscular HGB Conc 31.9 g/dL (30.0-36.0); Mean Corpuscular Volume 97.2 fL (81-99); Mean Platelet Volume 11.4 fL (7.4-10.4); Monocytes # 0.3 10^3/uL (0.2-0.9); Monocytes % 8.7 %; Neutrophils # 2.2 10^3/uL (1.8-7.7); Neutrophils % 56.3 %; Nucleated Red Blood Cells % 0 %; Platelet Count 130 10^3/cmm (130-400); Red Blood Count 3.52 10^6/uL (4.1-5.3); Red Cell Distribution Width 16.1 % (12.1-15.1); White Blood Count 3.9 10^3/uL (4.0-10.0)
[2019-09-03 08:46] LABS: Alanine Aminotransferase 53 U/L (0-33); Albumin Level 4.1 g/dL (3.5-5.2); Alkaline Phosphatase 100 IU/L (35-105); Anion Gap 16.7 (5-19); Aspartate Amino Transferase 60 U/L (0-32); Blood Urea Nitrogen 16 mg/dL (8-23); Calcium 10.3 mg/dL (8.5-10.5); Carbon Dioxide 25 mmol/L (22-29); Chloride 103 mmol/L (98-107); Globulin 2.4 g/dL (1.3-4.6); Glomerular Filtration Rate 29.9 mL/min (90-130); Glucose 181 mg/dL (65-115); Osmolality Calculated 293 mOsm/kg (285-295); Potassium 3.7 mmol/L (3.5-5.1); Sodium 141 mmol/L (136-145); Total Bilirubin 0.2 mg/dL (0.15-1.2); Total Protein 6.5 g/dL (6.6-8.7)
[2019-09-03 09:08] LABS: Carcinoembryonic Antigen 18.7 ng/mL (0.0-4.7)
[2019-09-03] MEDS: sodium chloride 0.9% 250 ML 75 ML IV (10:30)
[2019-09-03] MEDS: sodium chloride 0.9% 1,000 ML 75 ML IV (13:00)
--- NOTE | 2019-09-06 08:47 | ONC FU_ITS ---
Dr. Multani Patient Follow-Up Note Patient: Jennifer Worley Unit #: [id number]: 1950 Dicatated By: Gary Multani M.D.Date of Visit:Sep 03, 2019 Onc Med Follow-up/Prog Note Chief Complaint: Colon cancer. 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 She had presented with an abnormal screening colonoscopy. A malignant appearing non-obstructing colonic mass was found at the hepatic flexure. The biopsy was consistent with low-grade, moderately differentiated infiltrating adenocarcinoma. Screening chest x-ray showed mild emphysema. CT of the abdomen/pelvis on 08/05/2015 showed no evidence of distant metastatic disease. The right hepatic colonic neoplasm was seen with an adjacent foci of air consistent with small microperforations which could be related to the recent biopsy during colonoscopy. There was soft tissue prominence in the proximal descending colon and the mild thickening of the duodenum and antrum of the stomach, thought to be gastroenteritis. A small right ovarian dermoid was suspected. Of note, she had a history of duodenitis and pancreatitis in July 2014. Preoperative CEA was not obtained. On 08/06/2015 she underwent an exploratory laparotomy and right hemicolectomy. Her surgical specimen revealed a 6.1 cm adenocarcinoma, focally penetrating through muscularis propria into superficial serosal tissue, with negative margins and positive mild lymphovascular invasion. There was involvement in 3 out of 14 lymph nodes, thus pathologic stage IIIB (T3, N1b, M0). Mismatch repair proteins were proficient. Cycle 1 of adjuvant FOLFOX chemotherapy began on 09/13/2015. Her treatment was complicated by neutropenia, ANC 1300, and platelets 105. In the settings of left arm swelling, on 10/19/2015 ultrasound of the left arm revealed DVT in the left subclavian and jugular vein. The patient began on anticoagulation with apixaban. In the interim her regimen was changed XELOX, cycle 3 on 11/04/2015 and cycle 4 on 11/18/2015. Follow-up ultrasound Doppler of the left arm on 11/23/2015 showed resolution of left arm DVT. During that time she developed severe debilitating left foot pain at the level of metatarsal in the dorsum of the foot and arch. She had no neuropathy in fingers or toes. Her right leg was unaffected. A stress fracture was suspected, but MRI of the left foot just showed osteoarthritis and no acute findings. With the 5th cycle of chemotherapy the treatment was changed back to FOLFOX, but the oxaliplatin was held at that point due to the foot pain. She then continued treatment with infusional 5-FU and leucovorin. She completed 12 cycles of treatment on 03/21/2016. Her other medical illnesses include hypertension, hyperlipidemia, type II diabetes, and depression. She suffered a right hemispheric stroke in 2006. She was treated for pancreatitis in 2014. She had previuosly smoked up to 1 pack of cigarettes daily. She cut down significantly in 2013. She now smokes just very occasionally. INTERIM HISTORY: Surveillance CT scans on 12/21/2016 and on 07/11/2017 showed no evidence of neoplastic process in the chest, abdomen, or pelvis. As of her follow-up visit on 07/12/2017, her CEA has remained stable and she appeared stable clinically. She continued on observation/expectant management. She underwent back surgery in [place] on 01/24/2018. Her surveillance CT scans of the chest, abdomen, and pelvis on 02/22/2018 showed centrilobular emphysematous changes in both lungs but with no evidence of a neoplastic process in the chest. The abdomen/pelvis showed the antrum of the stomach to be overall prominent with heterogeneous wall thickening of uncertain significance. In the right lobe of the liver adjacent to the gallbladder there was abnormal liver parenchyma increase in the prior exam with heterogeneous decreased enhancement suggestive of a metastatic lesion measuring 2.7 cm. An additional focus of abnormal liver parenchyma with heterogeneous decreased enhancement at the level of the falciform ligament involving the adjacent medial and lateral segments of the left lobe measured 3.8 x 4.8 cm. There was no change in the extensive cortical atrophy of the right kidney. She is seen for a scheduled visit. With evidence of limited sites of metastatic involvement in the liver, shows referred to Dr. Pichardo in [place] for consideration of liver directed therapy. His recommendation was to initiate systemic therapy and she then returned and began a trial of chemotherapy with FOLFIRI/Avastin, cycle 1 day 1 on 04/09/2018. She tolerated it with acceptable toxicity, and she was able to continue with cycle 2 on 04/23/2018 and with cycle 3 on 05/14/2018. She was seen for a scheduled visit on 05/27/2018. At that time she was having shortness of breath, cough, and slight hemoptysis. Her CT pulmonary angiogram showed a mild burden of bilateral pulmonary artery nonocclusive emboli. Also noted was lateral middle lobe peripheral pneumonia/pneumonitis, with pulmonary infarction felt to be less likely. She began anticoagulation with apixaban. Her chemotherapy was put on hold. She had follow-up at Dr. Pichardo's office on 06/19/2018. Repeat CT abdomen/pelvis showed interval response to therapy with decrease in the size of to hepatic metastatic lesion, one of which had nearly completely resolved. Also noted was development of a small amount of nonocclusive thrombus within the SMV. Infiltrate in the right middle lobe was thought to reflect a developing resolving pneumonia. She was recommended to continue chemotherapy, and she proceeded with 4th cycle on 07/01/2018. The Avastin was omitted due to the thromboembolism. As of cycle 6 on 08/06/2018 there was a significant decline in her CEA level to 10.2 ng/mL. With cycle 8 on 08/25/2018 it had further declined to 6.3 ng/mL. As of 10/07/2018 she began her 10th cycle of treatment. CEA was down 5.4 ng/mL. She was seen for a scheduled visit on 10/19/2018. Her treatment at that point was delayed due to moderately severe neutropenia, ANC 1400. She was able to continue with cycle 11 chemotherapy on 10/29/2018 with dose reductions in both the 5-FU and the irinotecan. As of 12/24/2018 she began cycle 15 of FOLFIRI. At that point her CEA level was stable at 6.3 ng/mL. Her chemotherapy subsequently was put on hold due to a significant increase in her serum creatinine. She was then given regularly scheduled IV hydration. Her restaging CT scans of the chest, abdomen, and pelvis on 02/05/2019 showed evolving pulmonary infarct versus localized atelectasis or scarring in the right middle lobe. There was decreased size of metastatic left and right lobe liver lesions, though comparison was limited due to lack of IV contrast. There was improvement in the previously noted gastric antral thickening. An enlarged right ovary appeared stable. She was referred to Dr. Pichardo for consideration of liver directed therapy. Continued observation/expectant management was recommended. Restaging PET/CT on 03/29/2019 showed residual left hepatic lobe metastasis measuring 2.4 cm with SUV 5.9 compared to 4.6 x 3.1 cm of SUV 8.3 on the prior study from February 2018. The right hepatic lobe metastasis was noted to be less than 1 cm in size and with FDG uptake barely greater than hepatic background activity. There were no other sites of metastatic disease evident on that study. At that point she remained off chemotherapy, and she continued follow-up with Dr. Pichardo. Restaging CT scans of the chest, abdomen, and pelvis on 05/26/2019 showed development of new bilateral pulmonary nodules which were worrisome for pulmonary metastatic disease, and 1 of the 2 hepatic lesions was not noted to be slightly larger by a few millimeters. With those findings, she was scheduled to return here for further chemotherapy, and she then continued treatment with cycle 16 of FOLFIRI/Avastin on 06/04/2019. At that point her CEA level had increased to 65 ng/mL. She then continued treatment at 2-week intervals. As of 07/22/2019 she began her 19th cycle. Her CEA had declined to 23.6 ng/mL. She continued with cycle 20 on 08/05/2019. As of her visit on 08/20/2019 her treatment was put on hold due to weakness and declining performance status. Her CEA had further declined to 19.1 ng/mL. She is seen for a follow-up visit. She has been feeling a little better with the treatment delay. Her energy is not too bad. Her ECOG score is 1. Her appetite has been okay, but she complains that her stomach still feels a little queasy. She has no fever or night sweats. She has had no mouth sores. She sometimes has cough. She does not complain of shortness of breath or chest pain. She just occasionally has diarrhea. Overall it is not as bad. Bladder function has been okay. Recently she has had some pain in her right thumb. She has no other joint or bone pain. She has had a few headaches. She sometimes has dizziness. She still has numbness/tingling in her hands and feet, worse on the left side. Medications: Diclofenac Sodium 1 Tablet (of 75 mg) Tablet, enteric coated Oral b.i.d. PRN, Eliquis 1 Tablet (of 5 mg) Oral b.i.d., Escitalopram Oxalate 1 (20 mg) Tablet Oral daily, Gabapentin 1 Tablet (of 300 mg) Oral t.i.d., glipiZIDE ER 1 Tablet (of 5 mg) Tablet SR 24 HR Oral daily, Hydrochlorothiazide 1 (25 mg) Tablet Oral daily, Labetalol HCl 1 (300 mg) Tablet Oral b.i.d., Lisinopril 1 (20 mg) Tablet Oral daily, MetFORMIN HCl 2 (500 mg) Tablet Oral b.i.d., ProAir HFA Aerosol, solution Inhalation PRN, Protonix 1 Tablet (of 40 mg) Tablet, enteric coated Oral daily, rOPINIRole HCl 1 Tablet (of 0.25 mg) Oral b.i.d., Simvastatin 1 (40 mg) Tablet Oral daily Allergies: No Known Allergies. Review of Systems: Constitutional - Her energy is not too bad. She is doing light work at home. Her appetite is OK. No fever, chills, hot flashes, or night sweats. ECOG score is 1, ENMT - She has sinus drainage. No mouth sores. No sore throat or difficulty swallowing, Hematologic/Lymphatic - No abnormal bruising or bleeding, Respiratory - No shortness of breath. She sometimes has cough. No pleuritic pain or hemoptysis, Cardiovascular - No angina pain. No palpitations, Gastrointestinal - Her stomach feels a little queasy. She occasionally has acid reflux. She has occasional diarrhea. Overall it is better. No blood in the stool or black stools, Genitourinary (F) - No dysuria or hematuria. No urinary frequency. No urgency or incontinence, Musculoskeletal - She has pain in her right thumb. She has no other joint or bone pain, Integumentary - No skin complications, Neurologic - She has had a few headaches. She sometimes has dizziness. She has numbness and tingling in her hands and feet, worse on the left, Psychiatric - She sometimes feels up tight. She has some depression. She does not sleep well at night. Vital Signs: Performed on Sep 03, 2019 15:05 Height - 64.00 in Temperature - 96.7 F (LOW) Pulse - 88 /min Respiration - 18 /min BP - 149/88 mm(hg) (HIGH) O2 Sat - 96 % Pain - 0 Fatigue - 0 Performed on Sep 03, 2019 09:40 Height - 64.00 in Weight - 168.4 lbs (HIGH) BSA - 1.82 sq.m BMI - 28.91 Temperature - 97.9 F (LOW) Pulse - 81 /min Respiration - 24 /min BP - 151/95 mm(hg) (HIGH) O2 Sat - 99 % Pain - 0 Physical Examination: Constitutional - She looks pretty good generally, Eyes - Sclerae nonicteric. Conjunctivae clear, ENMT - There are no lesions noted in the oral cavity, Hematologic/Lymphatic - No cervical, clavicular, or axillary adenopathy, Respiratory - Lungs show diminished air movement with slightly coarse breath sounds bilaterally, Cardiovascular - Heart rhythm is regular. There is no murmur, gallop, or rub noted, Abdomen - Soft. Liver and spleen are not enlarged. There is no abdominal mass or ascites noted and there is no inguinal adenopathy, Extremities - Slight edema, Neurologic - There are no focal neurologic deficits noted. Lab/Imaging: Test performed on Sep 03, 2019 08:15 Sodium 141 mmol/L Potassium 3.7 mmol/L Chloride 103 mmol/L CO2 25 mmol/L Anion Gap 16.7 BUN 16 mg/dL Creatinine 1.7 mg/dL Cr Clearance (Est) 35.2900 mL/min eGFR 29.9 mL/min Glucose 181 mg/dL Calcium 10.3 mg/dL Protein, Total 6.5 g/dL Albumin 4.1 g/dL Globulin 2.4 g/dL Bilirubin, Total 0.2 mg/dL ALT (SGPT) 53 U/L AST (SGOT) 60 U/L Alkaline Phosphatase 100 IU/L WBC 3.9 10 3/uL RBC 3.52 10 6/uL HGB 10.9 g/dL HCT 34.2 % MCV 97.2 fL MCH 31.0 pg MCHC 31.9 g/dL RDW 16.1 % Platelet Count 130 10 3/cmm MPV 11.4 fL Neutrophils 2.2 10 3/uL Lymphocytes 1.2 10 3/uL Monocytes 0.3 10 3/uL Eosinophils 0.2 10 3/uL Basophils 0.0 10 3/uL Neutrophil % 56.3 % Lymphocyte % 30.3 % Monocyte % 8.7 % Eosinophil % 4.1 % Basophils % 0.3 % CEA 18.7 ng/mL Impression: 1. 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 Her tumor was found to be MSI stable and to harbor a KRAS mutation (12ASP). 2. She underwent right hemicolectomy on 08/06/2015 and she began adjuvant chemotherapy with modified FOLFOX in August 2015. Her treatment was complicated by port associated deep vein thrombosis and by peripheral neuropathy. Oxaliplatin was held after 4 cycles. She ultimately completed 12 cycles of treatment in March 2016. 3. In February 2018 there was a very significant increase in her CEA level and her surveillance CT scans showed 2 hepatic lesions which were consistent with metastases, one in the right lobe measuring 2.7 cm and one in the left lobe measuring 3.8 x 4.8 cm. As such, her disease at that point was stage IV (M1a). Her other medical illnesses include: 4. Hypertension. 5. Hyperlipidemia. 6. Type II diabetes. 7. Depression. 8. She has a history of pancreatitis in July 2014. 9. She has history of stroke in 2006. She was referred to Dr. Pichardo for consideration of liver directed therapy. He recommended that she first have a trial of chemotherapy. She returned here and began a course of treatment with FOLFIRI/Avastin, cycle 1 day 1 on 04/09/2018. She continued with cycle 2 on 04/23/2018 and was cycle 3 on 05/14/2018. On 05/27/2018 she presented with shortness of breath, cough, and slight hemoptysis. Her CT pulmonary angiogram showed mild burden of bilateral pulmonary artery nonocclusive emboli. There was also suspected right middle lobe pneumonia/pneumonitis, with pulmonary infarction felt to be less likely. She began anticoagulation with apixaban. Her chemotherapy has remain on hold, but she did appear to have response by CEA level and by follow-up CT scan. She continued with cycle 4 of chemotherapy on 07/01/2018, but with omission of Avastin due to the thromboembolism. She had subsequently continued treatment at 2-week intervals. As of 10/07/2018 she began her 10th cycle of treatment. CEA at that point was down to 5.4 ng/mL. Her cycle 11 treatment was delayed one week due to moderately severe neutropenia, ANC 1400. She was then able to continue treatment with dose reductions in both the 5-FU and irinotecan. As of 12/24/2018 she began cycle 15 of FOLFIRI chemotherapy. Her CEA at that point was stable at 6.3 ng/mL. Her treatment subsequently was put on hold due to a significant increase in her serum creatinine. Restaging CT scans on 02/05/2019 showed residual metastatic lesions in the left and right lobe of the liver, decreased compared to the previous study from July 2018. There were no other obvious areas of metastatic disease. She was referred to Dr. Pichardo for consideration of liver directed therapy. Continued observation/expectant management was recommended. During follow-up she has had some improvement in her performance status since stopping the chemotherapy. Her restaging PET/CT from 03/29/2019 showed residual but improved hepatic metastatic lesions compared to the study from February 2018. However, restaging CT scans on 05/26/2019 showed disease progression with development of new pulmonary metastatic disease bilaterally. There was slight enlargement of 1 of the hepatic lesions. There also was a significant increase in her CEA level. She then restarted chemotherapy with cycle 16 of FOLFIRI/Avastin on 06/04/2019. She tolerated it without acute toxicity. She was then able to continue treatment at 2-week intervals. As of 07/22/2019 she began cycle 19. At that point her CEA level had decreased significantly, to 23.6 ng/mL. She continued with cycle 20 on 08/05/2019. As of her follow-up visit on 08/20/2019 her treatment was put on hold due to weakness and declining performance status. Since then she has been feeling somewhat better generally, but her blood counts are borderline low and there has been some decline again in her renal function. She has had significant response by CEA level, which has now stabilized at 18.7 ng/mL. Plan: She wishes to continue her treatment, so she will now proceed with cycle 21 of FOLFIRI/Avastin. The dosages will remain the same. She will return in 1 week to recheck her CBC and chemistries. She will have scheduled IV hydration at that time, or sooner as needed. She is scheduled to have follow-up with Dr. Pichardo 2 weeks from now. I will tentatively plan a follow-up visit here in 3 weeks. Signed By: Gary Multani M.D. <<Signature on File>>
[2019-09-10] MEDS: sodium chloride 0.9% 1,000 ML 999 ML IV (11:35)
== END 2019-09-16 23:59 | disposition home or self-care (01) ==
LOC: ONCMED 05:45
PROVIDERS: Internal Medicine Medical Oncology; Family Provider Internal Medicine; PCP Internal Medicine; Visit Provider Nurse Practitioner
DX: Z51.11 Encounter for antineoplastic chemotherapy (principal); C78.7 Secondary malignant neoplasm of liver and intrahepatic bile duct; C78.01 Secondary malignant neoplasm of right lung; C78.02 Secondary malignant neoplasm of left lung; Z85.038 Personal history of other malignant neoplasm of large intestine; Z45.2 Encounter for adjustment and management of vascular access device; R53.83 Other fatigue; I10 Essential (primary) hypertension; E78.5 Hyperlipidemia, unspecified; E11.9 Type 2 diabetes mellitus without complications; F32.9 Major depressive disorder, single episode, unspecified; F17.210 Nicotine dependence, cigarettes, uncomplicated; Z79.01 Long term (current) use of anticoagulants; Z79.84 Long term (current) use of oral hypoglycemic drugs; Z86.73 Personal history of transient ischemic attack (TIA), and cerebral infarction without residual deficits; Z90.49 Acquired absence of other specified parts of digestive tract
CPT/HCPCS: 80053; 82378; 85025; 96360; 96361; 96367; 96375; 96413; 96416; 96417; 96523; 99214; J0461; J0640; J1100; J2469; J7030; J7050; J9035; J9206

== ENCOUNTER 2019-10-16 06:48 | Outpatient (RCR) | payer MEDICARE, SELFPAY ==
[2019-09-23 09:07] LABS: Basophils % 0.3 %; Eosinophils # 0.2 10^3/uL (0.0-0.8); Eosinophils % 5.2 %; Lymphocytes # 1.4 10^3/uL (0.8-4.8); Lymphocytes % 35.7 %; Mean Corpuscular HGB Conc 31.6 g/dL (30.0-36.0); Mean Corpuscular Hemoglobin 30.6 pg (28.0-34.0); Mean Corpuscular Volume 96.9 fL (81-99); Mean Platelet Volume 10.6 fL (7.4-10.4); Monocytes # 0.4 10^3/uL (0.2-0.9); Monocytes % 10.7 %; Neutrophils # 1.8 10^3/uL (1.8-7.7); Neutrophils % 47.6 %; Nucleated Red Blood Cells % 0 %; Platelet Count 146 10^3/cmm (130-400); Red Blood Count 3.92 10^6/uL (4.1-5.3); Red Cell Distribution Width 14.9 % (12.1-15.1); White Blood Count 3.8 10^3/uL (4.0-10.0)
[2019-09-23 09:33] LABS: Carcinoembryonic Antigen 16.9 ng/mL (0.0-4.7)
[2019-09-23 09:44] LABS: Alanine Aminotransferase 15 U/L (0-33); Albumin Level 4.1 g/dL (3.5-5.2); Alkaline Phosphatase 83 IU/L (35-105); Aspartate Amino Transferase 25 U/L (0-32); Blood Urea Nitrogen 17 mg/dL (8-23); Calcium 10.2 mg/dL (8.5-10.5); Carbon Dioxide 24 mmol/L (22-29); Chloride 102 mmol/L (98-107); Globulin 2.8 g/dL (1.3-4.6); Glomerular Filtration Rate 37.4 mL/min (90-130); Glucose 150 mg/dL (65-115); Osmolality Calculated 285 mOsm/kg (285-295); Sodium 138 mmol/L (136-145); Total Bilirubin 0.2 mg/dL (0.15-1.2); Total Protein 6.9 g/dL (6.6-8.7)
[2019-09-23] MEDS: sodium chloride 0.9% 250 ML 75 ML IV (11:05)
--- NOTE | 2019-09-23 15:59 | ONC FU_ITS ---
Dr. Multani Patient Follow-Up Note Patient: Jennifer Worley Unit #: [id number]: 1950 Dicatated By: Gary Multani M.D.Date of Visit:Sep 23, 2019 Onc Med Follow-up/Prog Note Chief Complaint: Colon cancer. 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 She had presented with an abnormal screening colonoscopy. A malignant appearing non-obstructing colonic mass was found at the hepatic flexure. The biopsy was consistent with low-grade, moderately differentiated infiltrating adenocarcinoma. Screening chest x-ray showed mild emphysema. CT of the abdomen/pelvis on 08/05/2015 showed no evidence of distant metastatic disease. The right hepatic colonic neoplasm was seen with an adjacent foci of air consistent with small microperforations which could be related to the recent biopsy during colonoscopy. There was soft tissue prominence in the proximal descending colon and the mild thickening of the duodenum and antrum of the stomach, thought to be gastroenteritis. A small right ovarian dermoid was suspected. Of note, she had a history of duodenitis and pancreatitis in July 2014. Preoperative CEA was not obtained. On 08/06/2015 she underwent an exploratory laparotomy and right hemicolectomy. Her surgical specimen revealed a 6.1 cm adenocarcinoma, focally penetrating through muscularis propria into superficial serosal tissue, with negative margins and positive mild lymphovascular invasion. There was involvement in 3 out of 14 lymph nodes, thus pathologic stage IIIB (T3, N1b, M0). Mismatch repair proteins were proficient. Cycle 1 of adjuvant FOLFOX chemotherapy began on 09/13/2015. Her treatment was complicated by neutropenia, ANC 1300, and platelets 105. In the settings of left arm swelling, on 10/19/2015 ultrasound of the left arm revealed DVT in the left subclavian and jugular vein. The patient began on anticoagulation with apixaban. In the interim her regimen was changed XELOX, cycle 3 on 11/04/2015 and cycle 4 on 11/18/2015. Follow-up ultrasound Doppler of the left arm on 11/23/2015 showed resolution of left arm DVT. During that time she developed severe debilitating left foot pain at the level of metatarsal in the dorsum of the foot and arch. She had no neuropathy in fingers or toes. Her right leg was unaffected. A stress fracture was suspected, but MRI of the left foot just showed osteoarthritis and no acute findings. With the 5th cycle of chemotherapy the treatment was changed back to FOLFOX, but the oxaliplatin was held at that point due to the foot pain. She then continued treatment with infusional 5-FU and leucovorin. She completed 12 cycles of treatment on 03/21/2016. Her other medical illnesses include hypertension, hyperlipidemia, type II diabetes, and depression. She suffered a right hemispheric stroke in 2006. She was treated for pancreatitis in 2014. She had previuosly smoked up to 1 pack of cigarettes daily. She cut down significantly in 2013. She now smokes just very occasionally. INTERIM HISTORY: Surveillance CT scans on 12/21/2016 and on 07/11/2017 showed no evidence of neoplastic process in the chest, abdomen, or pelvis. As of her follow-up visit on 07/12/2017, her CEA has remained stable and she appeared stable clinically. She continued on observation/expectant management. She underwent back surgery in [place] on 01/24/2018. Her surveillance CT scans of the chest, abdomen, and pelvis on 02/22/2018 showed centrilobular emphysematous changes in both lungs but with no evidence of a neoplastic process in the chest. The abdomen/pelvis showed the antrum of the stomach to be overall prominent with heterogeneous wall thickening of uncertain significance. In the right lobe of the liver adjacent to the gallbladder there was abnormal liver parenchyma increase in the prior exam with heterogeneous decreased enhancement suggestive of a metastatic lesion measuring 2.7 cm. An additional focus of abnormal liver parenchyma with heterogeneous decreased enhancement at the level of the falciform ligament involving the adjacent medial and lateral segments of the left lobe measured 3.8 x 4.8 cm. There was no change in the extensive cortical atrophy of the right kidney. She is seen for a scheduled visit. With evidence of limited sites of metastatic involvement in the liver, shows referred to Dr. Pichardo in [place] for consideration of liver directed therapy. His recommendation was to initiate systemic therapy and she then returned and began a trial of chemotherapy with FOLFIRI/Avastin, cycle 1 day 1 on 04/09/2018. She tolerated it with acceptable toxicity, and she was able to continue with cycle 2 on 04/23/2018 and with cycle 3 on 05/14/2018. She was seen for a scheduled visit on 05/27/2018. At that time she was having shortness of breath, cough, and slight hemoptysis. Her CT pulmonary angiogram showed a mild burden of bilateral pulmonary artery nonocclusive emboli. Also noted was lateral middle lobe peripheral pneumonia/pneumonitis, with pulmonary infarction felt to be less likely. She began anticoagulation with apixaban. Her chemotherapy was put on hold. She had follow-up at Dr. Pichardo's office on 06/19/2018. Repeat CT abdomen/pelvis showed interval response to therapy with decrease in the size of to hepatic metastatic lesion, one of which had nearly completely resolved. Also noted was development of a small amount of nonocclusive thrombus within the SMV. Infiltrate in the right middle lobe was thought to reflect a developing resolving pneumonia. She was recommended to continue chemotherapy, and she proceeded with 4th cycle on 07/01/2018. The Avastin was omitted due to the thromboembolism. As of cycle 6 on 08/06/2018 there was a significant decline in her CEA level to 10.2 ng/mL. With cycle 8 on 08/25/2018 it had further declined to 6.3 ng/mL. As of 10/07/2018 she began her 10th cycle of treatment. CEA was down 5.4 ng/mL. She was seen for a scheduled visit on 10/19/2018. Her treatment at that point was delayed due to moderately severe neutropenia, ANC 1400. She was able to continue with cycle 11 chemotherapy on 10/29/2018 with dose reductions in both the 5-FU and the irinotecan. As of 12/24/2018 she began cycle 15 of FOLFIRI. At that point her CEA level was stable at 6.3 ng/mL. Her chemotherapy subsequently was put on hold due to a significant increase in her serum creatinine. She was then given regularly scheduled IV hydration. Her restaging CT scans of the chest, abdomen, and pelvis on 02/05/2019 showed evolving pulmonary infarct versus localized atelectasis or scarring in the right middle lobe. There was decreased size of metastatic left and right lobe liver lesions, though comparison was limited due to lack of IV contrast. There was improvement in the previously noted gastric antral thickening. An enlarged right ovary appeared stable. She was referred to Dr. Pichardo for consideration of liver directed therapy. Continued observation/expectant management was recommended. Restaging PET/CT on 03/29/2019 showed residual left hepatic lobe metastasis measuring 2.4 cm with SUV 5.9 compared to 4.6 x 3.1 cm of SUV 8.3 on the prior study from February 2018. The right hepatic lobe metastasis was noted to be less than 1 cm in size and with FDG uptake barely greater than hepatic background activity. There were no other sites of metastatic disease evident on that study. At that point she remained off chemotherapy, and she continued follow-up with Dr. Pichardo. Restaging CT scans of the chest, abdomen, and pelvis on 05/26/2019 showed development of new bilateral pulmonary nodules which were worrisome for pulmonary metastatic disease, and 1 of the 2 hepatic lesions was not noted to be slightly larger by a few millimeters. With those findings, she was scheduled to return here for further chemotherapy, and she then continued treatment with cycle 16 of FOLFIRI/Avastin on 06/04/2019. At that point her CEA level had increased to 65 ng/mL. She then continued treatment at 2-week intervals. As of 07/22/2019 she began her 19th cycle. Her CEA had declined to 23.6 ng/mL. She continued with cycle 20 on 08/05/2019. As of her visit on 08/20/2019 her treatment was put on hold due to weakness and declining performance status. Her CEA had further declined to 19.1 ng/mL. She then returned and was able to continue with cycle 21 of FOLFIRI/Avastin on 3 on 09/03/2019. She is seen for a follow-up visit. She has been feeling pretty good generally. Overall her energy has been a little better. She has been able to do some mowing and other light work. ECOG score is 1. She has good appetite. She has no fever or night sweats. Her main complaint is that following her last treatment she has had soreness in her right upper quadrant area, which over time continued to get worse. On Sunday she felt a lump in that area, which she is very concerned about. She has had just occasional mild nausea. She has had diarrhea several times since her last treatment, but it has been managed adequately with Imodium. She has had no mouth sores. She does have some sinus drainage and cough. She has no shortness of breath. She has not had chest pain other than some burning associated with the right upper quadrant pain. She has no complaints. She has some joint pain, which is about the same. She does not complain of headache. She sometimes has dizziness. She still has some neuropathy, which is stable. Medications: Diclofenac Sodium 1 Tablet (of 75 mg) Tablet, enteric coated Oral b.i.d. PRN, Eliquis 1 Tablet (of 5 mg) Oral b.i.d., Escitalopram Oxalate 1 (20 mg) Tablet Oral daily, Gabapentin 1 Tablet (of 300 mg) Oral t.i.d., glipiZIDE ER 1 Tablet (of 5 mg) Tablet SR 24 HR Oral daily, Hydrochlorothiazide 1 (25 mg) Tablet Oral daily, Labetalol HCl 1 (300 mg) Tablet Oral b.i.d., Lisinopril 1 (20 mg) Tablet Oral daily, MetFORMIN HCl 2 (500 mg) Tablet Oral b.i.d., ProAir HFA Aerosol, solution Inhalation PRN, Protonix 1 Tablet (of 40 mg) Tablet, enteric coated Oral daily, rOPINIRole HCl 1 Tablet (of 0.25 mg) Oral b.i.d., Simvastatin 1 (40 mg) Tablet Oral daily Allergies: No Known Allergies. Review of Systems: Constitutional - Her energy is a little better. She has been doing some mowing and other light work. She has good appetite. She has no fever or night sweats. ECOG score is 1, ENMT - She has sinus congestion/drainage. No mouth sores. No sore throat or difficulty swallowing, Hematologic/Lymphatic - She has some bruising, Respiratory - No shortness of breath. She has a cough. No pleuritic pain or hemoptysis, Cardiovascular - No angina pain. No palpitations, Gastrointestinal - She has been having pain in the right upper quadrant area. She occasionally has mild nausea. No vomiting. No heartburn or acid reflux. She is having diarrhea that is controlled with Imodium. No constipation. No blood in the stool or black stools, Genitourinary (F) - No dysuria or hematuria. No urinary frequency. No urgency or incontinence, Musculoskeletal - She has some joint pain which is unchanged, Integumentary - No skin complications, Neurologic - No headache. She has occasional episodes of dizziness. She has some numbness and tingling that is unchanged, Psychiatric - No anxiety or depression. No insomnia. Vital Signs: Performed on Sep 23, 2019 10:05 Height - 64.00 in Weight - 164.4 lbs (LOW) BSA - 1.80 sq.m BMI - 28.22 Temperature - 97.8 F (LOW) Pulse - 93 /min Respiration - 24 /min BP - 185/76 mm(hg) (HIGH) O2 Sat - 96 % Pain - 3 Physical Examination: Constitutional - She looks pretty good generally, Eyes - Sclerae nonicteric. Conjunctivae clear, ENMT - There are no lesions noted in the oral cavity, Hematologic/Lymphatic - No cervical, clavicular, or axillary adenopathy, Respiratory - Lungs show diminished air movement with slightly coarse breath sounds bilaterally, Cardiovascular - Heart rhythm is regular. There is no murmur, gallop, or rub noted, Abdomen - Soft. Liver is not enlarged or tender. The spleen is not palpable. There is a small subcutaneous nodule in the abdominal wall just to the right of her midline incision, above the umbilicus. There is no abdominal mass or ascites noted and there is no inguinal adenopathy, Extremities - Slight edema, Neurologic - There are no focal neurologic deficits noted. Lab/Imaging: Test performed on Sep 23, 2019 08:56 Sodium 138 mmol/L Potassium 4.0 mmol/L Chloride 102 mmol/L CO2 24 mmol/L Anion Gap 16.0 BUN 17 mg/dL Creatinine 1.4 mg/dL Cr Clearance (Est) 42.8500 mL/min eGFR 37.4 mL/min Glucose 150 mg/dL Calcium 10.2 mg/dL Protein, Total 6.9 g/dL Albumin 4.1 g/dL Globulin 2.8 g/dL Bilirubin, Total 0.2 mg/dL ALT (SGPT) 15 U/L AST (SGOT) 25 U/L Alkaline Phosphatase 83 IU/L WBC 3.8 10 3/uL RBC 3.92 10 6/uL HGB 12.0 g/dL HCT 38.0 % MCV 96.9 fL MCH 30.6 pg MCHC 31.6 g/dL RDW 14.9 % Platelet Count 146 10 3/cmm MPV 10.6 fL Neutrophils 1.8 10 3/uL Lymphocytes 1.4 10 3/uL Monocytes 0.4 10 3/uL Eosinophils 0.2 10 3/uL Basophils 0.0 10 3/uL Neutrophil % 47.6 % Lymphocyte % 35.7 % Monocyte % 10.7 % Eosinophil % 5.2 % Basophils % 0.3 % CEA 16.9 ng/mL Impression: 1. 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 Her tumor was found to be MSI stable and to harbor a KRAS mutation (12ASP). 2. She underwent right hemicolectomy on 08/06/2015 and she began adjuvant chemotherapy with modified FOLFOX in August 2015. Her treatment was complicated by port associated deep vein thrombosis and by peripheral neuropathy. Oxaliplatin was held after 4 cycles. She ultimately completed 12 cycles of treatment in March 2016. 3. In February 2018 there was a very significant increase in her CEA level and her surveillance CT scans showed 2 hepatic lesions which were consistent with metastases, one in the right lobe measuring 2.7 cm and one in the left lobe measuring 3.8 x 4.8 cm. As such, her disease at that point was stage IV (M1a). Her other medical illnesses include: 4. Hypertension. 5. Hyperlipidemia. 6. Type II diabetes. 7. Depression. 8. She has a history of pancreatitis in July 2014. 9. She has history of stroke in 2006. She was referred to Dr. Pichardo for consideration of liver directed therapy. He recommended that she first have a trial of chemotherapy. She returned here and began a course of treatment with FOLFIRI/Avastin, cycle 1 day 1 on 04/09/2018. She continued with cycle 2 on 04/23/2018 and was cycle 3 on 05/14/2018. On 05/27/2018 she presented with shortness of breath, cough, and slight hemoptysis. Her CT pulmonary angiogram showed mild burden of bilateral pulmonary artery nonocclusive emboli. There was also suspected right middle lobe pneumonia/pneumonitis, with pulmonary infarction felt to be less likely. She began anticoagulation with apixaban. Her chemotherapy has remain on hold, but she did appear to have response by CEA level and by follow-up CT scan. She continued with cycle 4 of chemotherapy on 07/01/2018, but with omission of Avastin due to the thromboembolism. She had subsequently continued treatment at 2-week intervals. As of 10/07/2018 she began her 10th cycle of treatment. CEA at that point was down to 5.4 ng/mL. Her cycle 11 treatment was delayed one week due to moderately severe neutropenia, ANC 1400. She was then able to continue treatment with dose reductions in both the 5-FU and irinotecan. As of 12/24/2018 she began cycle 15 of FOLFIRI chemotherapy. Her CEA at that point was stable at 6.3 ng/mL. Her treatment subsequently was put on hold due to a significant increase in her serum creatinine. Restaging CT scans on 02/05/2019 showed residual metastatic lesions in the left and right lobe of the liver, decreased compared to the previous study from July 2018. There were no other obvious areas of metastatic disease. She was referred to Dr. Pichardo for consideration of liver directed therapy. Continued observation/expectant management was recommended. During follow-up she has had some improvement in her performance status since stopping the chemotherapy. Her restaging PET/CT from 03/29/2019 showed residual but improved hepatic metastatic lesions compared to the study from February 2018. However, restaging CT scans on 05/26/2019 showed disease progression with development of new pulmonary metastatic disease bilaterally. There was slight enlargement of 1 of the hepatic lesions. There also was a significant increase in her CEA level. She then restarted chemotherapy with cycle 16 of FOLFIRI/Avastin on 06/04/2019. She tolerated it without acute toxicity. She was then able to continue treatment at 2-week intervals. As of 07/22/2019 she began cycle 19. At that point her CEA level had decreased significantly, to 23.6 ng/mL. She continued with cycle 20 on 08/05/2019. As of her follow-up visit on 08/20/2019 her treatment was put on hold due to weakness and declining performance status. She returned on 09/03/2019 and she was then able to continue with cycle 21 of FOLFIRI/Avastin. She seems to tolerate it with acceptable toxicity to 3-week interval, and during this time there has been the continued gradual decline in her CEA level, now to 16.9 ng/mL. Plan: She will proceed with cycle 22 of FOLFIRI/Avastin. The dosages will remain the same. I will keep her on a 3-week schedule, which she seems to tolerate with acceptable toxicity. In the meantime, she is to let us know if the knot in her abdominal area is getting bigger. Signed By: Gary Multani M.D. <<Signature on File>>
[2019-09-25] MEDS: sodium chloride 0.9% 1,000 ML 999 ML IV (14:05)
[2019-10-13 12:48] LABS: Basophils % 0.4 %; Eosinophils # 0.1 10^3/uL (0.0-0.8); Eosinophils % 2.6 %; Hematocrit 39.1 % (37.0-47.0); Lymphocytes # 1.2 10^3/uL (0.8-4.8); Lymphocytes % 24.5 %; Mean Corpuscular HGB Conc 30.7 g/dL (30.0-36.0); Mean Corpuscular Hemoglobin 29.9 pg (28.0-34.0); Mean Corpuscular Volume 97.3 fL (81-99); Mean Platelet Volume 11.7 fL (7.4-10.4); Monocytes # 0.5 10^3/uL (0.2-0.9); Monocytes % 9.6 %; Neutrophils % 62.9 %; Nucleated Red Blood Cells % 0 %; Platelet Count 149 10^3/cmm (130-400); Red Blood Count 4.02 10^6/uL (4.1-5.3); Red Cell Distribution Width 14.6 % (12.1-15.1); White Blood Count 4.7 10^3/uL (4.0-10.0)
[2019-10-13 13:30] LABS: Alanine Aminotransferase 17 U/L (0-33); Albumin Level 4.5 g/dL (3.5-5.2); Alkaline Phosphatase 76 IU/L (35-105); Anion Gap 19.6 (5-19); Aspartate Amino Transferase 25 U/L (0-32); Blood Urea Nitrogen 21 mg/dL (8-23); Calcium 10.7 mg/dL (8.5-10.5); Carbon Dioxide 22 mmol/L (22-29); Chloride 105 mmol/L (98-107); Glomerular Filtration Rate 37.4 mL/min (90-130); Glucose 146 mg/dL (65-115); Osmolality Calculated 293 mOsm/kg (285-295); Potassium 4.6 mmol/L (3.5-5.1); Sodium 142 mmol/L (136-145); Total Bilirubin 0.2 mg/dL (0.15-1.2); Total Protein 7.5 g/dL (6.6-8.7)
[2019-10-14] MEDS: sodium chloride 0.9% 250 ML 50 ML IV (11:23)
[2019-10-14 11:50] LABS: Add Urine Microscopic? YES; Bilirubin Urine 1+ (NEGATIVE); Blood Urine 3+ (Negative); Glucose Urine UA Norm (Normal); Ketones Urine 1+ (Negative); Leukocyte Esterase Urine 2+ (Negative); Nitrate Urine Positive (Negative); Protein Urine 2+ (Negative); Urine Appearance Cloudy (CLEAR); Urine Color Yellow (Yellow); Urobilinogen Urine 1 mg/dL (Negative); pH Urine 5 (5-7)
[2019-10-14 11:51] LABS: Bacteria Urine 4+; Squamous Epithelial Cell Urine 0-4 (0-5); WBC Urine 15-25 /hpf (0-5)
[2019-10-14 11:52] LABS: Add Urine Culture? Yes
--- NOTE | 2019-10-15 13:16 | ONC FU_ITS ---
Dr. Multani Patient Follow-Up Note Patient: Jennifer Worley Unit #: [id number]: 1950 Dicatated By: Gary Multani M.D.Date of Visit:Oct 14, 2019 Onc Med Follow-up/Prog Note Chief Complaint: Colon cancer. 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 She had presented with an abnormal screening colonoscopy. A malignant appearing non-obstructing colonic mass was found at the hepatic flexure. The biopsy was consistent with low-grade, moderately differentiated infiltrating adenocarcinoma. Screening chest x-ray showed mild emphysema. CT of the abdomen/pelvis on 08/05/2015 showed no evidence of distant metastatic disease. The right hepatic colonic neoplasm was seen with an adjacent foci of air consistent with small microperforations which could be related to the recent biopsy during colonoscopy. There was soft tissue prominence in the proximal descending colon and the mild thickening of the duodenum and antrum of the stomach, thought to be gastroenteritis. A small right ovarian dermoid was suspected. Of note, she had a history of duodenitis and pancreatitis in July 2014. Preoperative CEA was not obtained. On 08/06/2015 she underwent an exploratory laparotomy and right hemicolectomy. Her surgical specimen revealed a 6.1 cm adenocarcinoma, focally penetrating through muscularis propria into superficial serosal tissue, with negative margins and positive mild lymphovascular invasion. There was involvement in 3 out of 14 lymph nodes, thus pathologic stage IIIB (T3, N1b, M0). Mismatch repair proteins were proficient. Cycle 1 of adjuvant FOLFOX chemotherapy began on 09/13/2015. Her treatment was complicated by neutropenia, ANC 1300, and platelets 105. In the settings of left arm swelling, on 10/19/2015 ultrasound of the left arm revealed DVT in the left subclavian and jugular vein. The patient began on anticoagulation with apixaban. In the interim her regimen was changed XELOX, cycle 3 on 11/04/2015 and cycle 4 on 11/18/2015. Follow-up ultrasound Doppler of the left arm on 11/23/2015 showed resolution of left arm DVT. During that time she developed severe debilitating left foot pain at the level of metatarsal in the dorsum of the foot and arch. She had no neuropathy in fingers or toes. Her right leg was unaffected. A stress fracture was suspected, but MRI of the left foot just showed osteoarthritis and no acute findings. With the 5th cycle of chemotherapy the treatment was changed back to FOLFOX, but the oxaliplatin was held at that point due to the foot pain. She then continued treatment with infusional 5-FU and leucovorin. She completed 12 cycles of treatment on 03/21/2016. Her other medical illnesses include hypertension, hyperlipidemia, type II diabetes, and depression. She suffered a right hemispheric stroke in 2006. She was treated for pancreatitis in 2014. She had previuosly smoked up to 1 pack of cigarettes daily. She cut down significantly in 2013. She now smokes just very occasionally. INTERIM HISTORY: Surveillance CT scans on 12/21/2016 and on 07/11/2017 showed no evidence of neoplastic process in the chest, abdomen, or pelvis. As of her follow-up visit on 07/12/2017, her CEA has remained stable and she appeared stable clinically. She continued on observation/expectant management. She underwent back surgery in [place] on 01/24/2018. Her surveillance CT scans of the chest, abdomen, and pelvis on 02/22/2018 showed centrilobular emphysematous changes in both lungs but with no evidence of a neoplastic process in the chest. The abdomen/pelvis showed the antrum of the stomach to be overall prominent with heterogeneous wall thickening of uncertain significance. In the right lobe of the liver adjacent to the gallbladder there was abnormal liver parenchyma increase in the prior exam with heterogeneous decreased enhancement suggestive of a metastatic lesion measuring 2.7 cm. An additional focus of abnormal liver parenchyma with heterogeneous decreased enhancement at the level of the falciform ligament involving the adjacent medial and lateral segments of the left lobe measured 3.8 x 4.8 cm. There was no change in the extensive cortical atrophy of the right kidney. She is seen for a scheduled visit. With evidence of limited sites of metastatic involvement in the liver, shows referred to Dr. Pichardo in [place] for consideration of liver directed therapy. His recommendation was to initiate systemic therapy and she then returned and began a trial of chemotherapy with FOLFIRI/Avastin, cycle 1 day 1 on 04/09/2018. She tolerated it with acceptable toxicity, and she was able to continue with cycle 2 on 04/23/2018 and with cycle 3 on 05/14/2018. She was seen for a scheduled visit on 05/27/2018. At that time she was having shortness of breath, cough, and slight hemoptysis. Her CT pulmonary angiogram showed a mild burden of bilateral pulmonary artery nonocclusive emboli. Also noted was lateral middle lobe peripheral pneumonia/pneumonitis, with pulmonary infarction felt to be less likely. She began anticoagulation with apixaban. Her chemotherapy was put on hold. She had follow-up at Dr. Pichardo's office on 06/19/2018. Repeat CT abdomen/pelvis showed interval response to therapy with decrease in the size of to hepatic metastatic lesion, one of which had nearly completely resolved. Also noted was development of a small amount of nonocclusive thrombus within the SMV. Infiltrate in the right middle lobe was thought to reflect a developing resolving pneumonia. She was recommended to continue chemotherapy, and she proceeded with 4th cycle on 07/01/2018. The Avastin was omitted due to the thromboembolism. As of cycle 6 on 08/06/2018 there was a significant decline in her CEA level to 10.2 ng/mL. With cycle 8 on 08/25/2018 it had further declined to 6.3 ng/mL. As of 10/07/2018 she began her 10th cycle of treatment. CEA was down 5.4 ng/mL. She was seen for a scheduled visit on 10/19/2018. Her treatment at that point was delayed due to moderately severe neutropenia, ANC 1400. She was able to continue with cycle 11 chemotherapy on 10/29/2018 with dose reductions in both the 5-FU and the irinotecan. As of 12/24/2018 she began cycle 15 of FOLFIRI. At that point her CEA level was stable at 6.3 ng/mL. Her chemotherapy subsequently was put on hold due to a significant increase in her serum creatinine. She was then given regularly scheduled IV hydration. Her restaging CT scans of the chest, abdomen, and pelvis on 02/05/2019 showed evolving pulmonary infarct versus localized atelectasis or scarring in the right middle lobe. There was decreased size of metastatic left and right lobe liver lesions, though comparison was limited due to lack of IV contrast. There was improvement in the previously noted gastric antral thickening. An enlarged right ovary appeared stable. She was referred to Dr. Pichardo for consideration of liver directed therapy. Continued observation/expectant management was recommended. Restaging PET/CT on 03/29/2019 showed residual left hepatic lobe metastasis measuring 2.4 cm with SUV 5.9 compared to 4.6 x 3.1 cm of SUV 8.3 on the prior study from February 2018. The right hepatic lobe metastasis was noted to be less than 1 cm in size and with FDG uptake barely greater than hepatic background activity. There were no other sites of metastatic disease evident on that study. At that point she remained off chemotherapy, and she continued follow-up with Dr. Pichardo. Restaging CT scans of the chest, abdomen, and pelvis on 05/26/2019 showed development of new bilateral pulmonary nodules which were worrisome for pulmonary metastatic disease, and 1 of the 2 hepatic lesions was not noted to be slightly larger by a few millimeters. With those findings, she was scheduled to return here for further chemotherapy, and she then continued treatment with cycle 16 of FOLFIRI/Avastin on 06/04/2019. At that point her CEA level had increased to 65 ng/mL. She then continued treatment at 2-week intervals. As of 07/22/2019 she began her 19th cycle. Her CEA had declined to 23.6 ng/mL. She continued with cycle 20 on 08/05/2019. As of her visit on 08/20/2019 her treatment was put on hold due to weakness and declining performance status. Her CEA had further declined to 19.1 ng/mL. She then returned and was able to continue with cycle 21 of FOLFIRI/Avastin on 09/03/2019 and with cycle 22 on 09/23/2019. CEA remained stable at 16.9 ng/mL. She is seen for a follow-up visit. She has been feeling pretty good generally. She says that she fell 2 weeks ago, but fortunately sustained just minor injuries. She says her energy is fairly good. She is able to do light work. ECOG score is 1. She has good appetite. She has no fever or night sweats. She has occasional cough, which she attributes to sinus drainage. She has no shortness of breath or chest pain. She has not been having nausea. She does have some soreness in the epigastric area and she has occasional acid reflux. She had diarrhea for 3 to 4 days after her last treatment, but it has been managed adequately with Imodium. She thinks she has a bladder infection, as she has been having urinary frequency and urgency and she also has some dysuria. She has some joint pain, mainly in her hands. She continues to have numbness/tingling in her hands and feet. Medications: Diclofenac Sodium 1 Tablet (of 75 mg) Tablet, enteric coated Oral b.i.d. PRN, Eliquis 1 Tablet (of 5 mg) Oral b.i.d., Escitalopram Oxalate 1 (20 mg) Tablet Oral daily, Gabapentin 1 Tablet (of 300 mg) Oral t.i.d., glipiZIDE ER 1 Tablet (of 5 mg) Tablet SR 24 HR Oral daily, Hydrochlorothiazide 1 (25 mg) Tablet Oral daily, Labetalol HCl 1 (300 mg) Tablet Oral b.i.d., Lisinopril 1 (20 mg) Tablet Oral daily, MetFORMIN HCl 2 (500 mg) Tablet Oral b.i.d., ProAir HFA Aerosol, solution Inhalation PRN, Protonix 1 Tablet (of 40 mg) Tablet, enteric coated Oral daily, rOPINIRole HCl 1 Tablet (of 0.25 mg) Oral b.i.d., Simvastatin 1 (40 mg) Tablet Oral daily Allergies: No Known Allergies. Review of Systems: Constitutional - Her energy is fairly good. She has been doing light work. She has good appetite. She has no fever or night sweats. ECOG score is 1, ENMT - She has sinus drainage. No mouth sores. No sore throat or difficulty swallowing, Hematologic/Lymphatic - She has some bruising, Respiratory - No shortness of breath. She has occasional cough. No pleuritic pain or hemoptysis, Cardiovascular - No angina pain. No palpitations, Gastrointestinal - She has some pain in the epigastric area. No nausea or vomiting. She has some acid reflux. She had diarrhea for 3-4 days, but adequately controlled with Imodium. No constipation. No blood in the stool or black stools, Genitourinary (F) - She is having some urinary frequency and urgency, and she has some dysuria. No hematuria. No incontinence, Musculoskeletal - She has some joint pain, mainly in the hands, Integumentary - No skin complications, Neurologic - No headache. She has dizziness. She has some numbness and tingling in her hands and feet, Psychiatric - No anxiety or depression. She has difficulty sleeping. Vital Signs: Performed on Oct 14, 2019 10:37 Height - 64.00 in Weight - 165.6 lbs (HIGH) BSA - 1.81 sq.m BMI - 28.43 Temperature - 98.0 F (LOW) Pulse - 80 /min Respiration - 24 /min BP - 150/59 mm(hg) (HIGH) O2 Sat - 99 % Pain - 4 Physical Examination: Constitutional - She looks pretty good generally, Eyes - Sclerae nonicteric. Conjunctivae clear, ENMT - There are no lesions noted in the oral cavity, Hematologic/Lymphatic - No cervical, clavicular, or axillary adenopathy, Respiratory - Lungs sound clear with diminished air movement bilaterally, Cardiovascular - Heart rhythm is regular. There is no murmur, gallop, or rub noted, Abdomen - Soft. There is no significant abdominal tenderness. Liver and spleen are not enlarged. There is no abdominal mass or ascites noted and there is no inguinal adenopathy, Extremities - No edema, Neurologic - There are no focal neurologic deficits noted. Lab/Imaging: CBC shows hemoglobin 12.0 g, white blood cell count 4700, and platelet count 149,000. Comprehensive metabolic profile is unremarkable. CEA is stable at 17.0 ng/mL. Impression: 1. 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 Her tumor was found to be MSI stable and to harbor a KRAS mutation (12ASP). 2. She underwent right hemicolectomy on 08/06/2015 and she began adjuvant chemotherapy with modified FOLFOX in August 2015. Her treatment was complicated by port associated deep vein thrombosis and by peripheral neuropathy. Oxaliplatin was held after 4 cycles. She ultimately completed 12 cycles of treatment in March 2016. 3. In February 2018 there was a very significant increase in her CEA level and her surveillance CT scans showed 2 hepatic lesions which were consistent with metastases, one in the right lobe measuring 2.7 cm and one in the left lobe measuring 3.8 x 4.8 cm. As such, her disease at that point was stage IV (M1a). Her other medical illnesses include: 4. Hypertension. 5. Hyperlipidemia. 6. Type II diabetes. 7. Depression. 8. She has a history of pancreatitis in July 2014. 9. She has history of stroke in 2006. She was referred to Dr. Pichardo for consideration of liver directed therapy. He recommended that she first have a trial of chemotherapy. She returned here and began a course of treatment with FOLFIRI/Avastin, cycle 1 day 1 on 04/09/2018. She continued with cycle 2 on 04/23/2018 and was cycle 3 on 05/14/2018. On 05/27/2018 she presented with shortness of breath, cough, and slight hemoptysis. Her CT pulmonary angiogram showed mild burden of bilateral pulmonary artery nonocclusive emboli. There was also suspected right middle lobe pneumonia/pneumonitis, with pulmonary infarction felt to be less likely. She began anticoagulation with apixaban. Her chemotherapy has remain on hold, but she did appear to have response by CEA level and by follow-up CT scan. She continued with cycle 4 of chemotherapy on 07/01/2018, but with omission of Avastin due to the thromboembolism. She had subsequently continued treatment at 2-week intervals. As of 10/07/2018 she began her 10th cycle of treatment. CEA at that point was down to 5.4 ng/mL. Her cycle 11 treatment was delayed one week due to moderately severe neutropenia, ANC 1400. She was then able to continue treatment with dose reductions in both the 5-FU and irinotecan. As of 12/24/2018 she began cycle 15 of FOLFIRI chemotherapy. Her CEA at that point was stable at 6.3 ng/mL. Her treatment subsequently was put on hold due to a significant increase in her serum creatinine. Restaging CT scans on 02/05/2019 showed residual metastatic lesions in the left and right lobe of the liver, decreased compared to the previous study from July 2018. There were no other obvious areas of metastatic disease. She was referred to Dr. Pichardo for consideration of liver directed therapy. Continued observation/expectant management was recommended. During follow-up she has had some improvement in her performance status since stopping the chemotherapy. Her restaging PET/CT from 03/29/2019 showed residual but improved hepatic metastatic lesions compared to the study from February 2018. However, restaging CT scans on 05/26/2019 showed disease progression with development of new pulmonary metastatic disease bilaterally. There was slight enlargement of 1 of the hepatic lesions. There also was a significant increase in her CEA level. She then restarted chemotherapy with cycle 16 of FOLFIRI/Avastin on 06/04/2019. She tolerated it without acute toxicity. She was then able to continue treatment at 2-week intervals. As of 07/22/2019 she began cycle 19. At that point her CEA level had decreased significantly, to 23.6 ng/mL. She continued with cycle 20 on 08/05/2019. As of her follow-up visit on 08/20/2019 her treatment was put on hold due to weakness and declining performance status. She returned on 09/03/2019 and she was then able to continue with cycle 21 of FOLFIRI/Avastin. She seems to tolerate it with acceptable toxicity at a 3-week interval, and she continued with cycle 22 on 09/22/2019. Her CEA has stabilized in the range of 17 ng/mL. Her clinical status also appears stable, though she does report having some pain in the epigastric area. At this point she also is having symptoms of urinary tract infection. Plan: She will proceed with cycle 23 of FOLFIRI/Avastin. The dosages will remain the same. She will be scheduled for follow-up visit in 3 weeks. In the meantime, I will check urinalysis and culture today, but I will go ahead and start empiric antibiotic coverage with Bactrim. I also will have her try increasing Protonix to twice a day. Signed By: Gary Multani M.D. <<Signature on File>>
== END 2019-10-16 23:59 | disposition home or self-care (01) ==
LOC: ONCMED 06:48
PROVIDERS: Family Provider Internal Medicine; PCP Internal Medicine; Visit Provider Internal Medicine Medical Oncology
DX: Z51.11 Encounter for antineoplastic chemotherapy (principal); C78.7 Secondary malignant neoplasm of liver and intrahepatic bile duct; C78.02 Secondary malignant neoplasm of left lung; C78.01 Secondary malignant neoplasm of right lung; I10 Essential (primary) hypertension; E78.5 Hyperlipidemia, unspecified; E11.42 Type 2 diabetes mellitus with diabetic polyneuropathy; F32.9 Major depressive disorder, single episode, unspecified; Z86.73 Personal history of transient ischemic attack (TIA), and cerebral infarction without residual deficits; Z90.49 Acquired absence of other specified parts of digestive tract; Z79.899 Other long term (current) drug therapy; Z85.030 Personal history of malignant carcinoid tumor of large intestine; Z45.2 Encounter for adjustment and management of vascular access device
CPT/HCPCS: 36415; 80053; 81001; 82378; 85025; 87077; 87086; 87186; 96360; 96367; 96368; 96375; 96413; 96415; 96416; 96417; 96523; 99214; J0461; J0640; J1100; J2469; J7030; J7050; J9035; J9206

== ENCOUNTER 2019-11-11 11:42 | Outpatient (CLI) | payer MEDICARE, SELFPAY ==
--- NOTE | 2019-11-11 11:51 | CT_ITS ---
WS: [id number] CT CHEST, ABDOMEN AND PELVIS WITH CONTRAST HISTORY: COLON CANCER; NAUSEA, VOMITING; TECHNIQUE: Contiguous 5 mm axial imaging performed through the chest, abdomen and pelvis with IV cont rast, oral contrast has been provided. Coronal and sagittal reformats chest. Coronal and sagittal ref ormats through the abdomen and pelvis. All CT scans at [facility] use at least one of the se dose optimization techniques: automated exposure control; mA and/or kV adjustment per patient size (includes targeted exams where dose is matched to clinical indication); or iterative reconstruction. CONTRAST: Omnipaque 300; 95 mL IV. DLP: 1383.66 mGy.cm COMPARISON: 05/26/2019 and 02/05/[address]: Previously seen nodules on 05/26/2019 in the LEFT upper and LEFT lower lobes have all decrea sed in size. The largest nodule is in the periphery of the LEFT lower lobe measuring 5 mm. All of the se nodules have slightly decreased in size. Additional 3 mm nodule in the RIGHT upper lobe has also s lightly decreased in size. No new nodules. Chronic emphysema and biapical pleural thickening and scar ring. Benign granuloma along the RIGHT diaphragmatic surface. Mild atherosclerosis aorta. Normal size pulmonary artery. Heart size is normal. No pericardial or pleural effusions. Small mediastinal and h ilar lymph nodes measuring up to 8 mm. Slight improvement since the prior CT. Chemotherapy port on th e RIGHT with tip in distal SVC. Abdomen CT: Patient has known hepatic metastasis. Metastatic site along the falciform ligament measur es 1.6 x 2.0 cm and is decreased in size since 09/18/2018. Comparison with unenhanced study from 019 is more difficult. There is minimal duct dilatation distal to this metastatic site in the LEFT lo be of the liver. No new metastatic lesions. The gallbladder is negative. Spleen is normal size. Pancr eas is negative. Marked atrophy of the RIGHT kidney is unchanged. LEFT kidney is normal size. Extensi ve atherosclerosis of aorta with no aneurysm. Postsurgical changes along the anterior abdominal wall. This area soft tissue thickening just to the RIGHT of midline which is similar to 05/26/2019. Pelvic CT: Mild diffuse constipation with no obstruction. Sigmoid diverticulosis without acute divert iculitis. Anastomotic site in the transverse colon with no obstruction or recurrent neoplasm. No free fluid or adenopathy. Well-distended urinary bladder. Increase in lumbar lordosis. No osteoblastic or osteolytic bone disease. CT/CT chest abd pel w con* IMPRESSION: 1. Continued slight decrease in size of the known pulmonary metastasis. The la rgest measures 5 mm in the LEFT lower lobe. 2. Subcentimeter mediastinal and hilar lymph nodes. 3. Chronic emphysema. 4. Hepatic metastatic site along the falciform ligament decreased since 09/19/19 19. Measurements are difficult to compare to the nonenhanced study of 05/26/2019 . 5. Stable anastomotic site of the transverse colon. 6. No ascites or new metastatic sites identified. 7. Soft tissue thickening along the supraumbilical anterior abdominal wall jus t to the RIGHT of midline. New since 09/18/2018 and unchanged since 05/26/2019. Co uld potentially represent a metastatic nodule or be an area of scar formation f rom prior surgery, increased in size since the PET/CT of 03/29/2019 at which th ere was mild increased activity. Evaluation by ultrasound and possible biopsy m ay be necessary to exclude metastatic site.
[2019-11-11] MEDS: iohexol 300 mg/mL 50 mL Btl PO (12:03)
[2019-11-11] MEDS: iodixanol 320 mg/mL 100mL Btl IV (13:43)
== END 2019-11-11 11:43 | disposition home or self-care (01) ==
LOC: RAD 11:48
PROVIDERS: PCP Internal Medicine; Visit Provider Internal Medicine Medical Oncology
DX: R11.2 Nausea with vomiting, unspecified (principal); Z85.038 Personal history of other malignant neoplasm of large intestine; J43.9 Emphysema, unspecified
CPT/HCPCS: 71260; 74177

== ENCOUNTER 2019-11-11 13:00 | Outpatient (RCR) | payer MEDICARE, SELFPAY ==
[2019-11-05 11:06] LABS: Basophils % 0.2 %; Eosinophils # 0.1 10^3/uL (0.0-0.8); Eosinophils % 2.7 %; Hematocrit 36.2 % (37.0-47.0); Hemoglobin 11.4 g/dL (11.5-15.3); Lymphocytes # 1.1 10^3/uL (0.8-4.8); Lymphocytes % 24.9 %; Mean Corpuscular HGB Conc 31.5 g/dL (30.0-36.0); Mean Corpuscular Hemoglobin 30.7 pg (28.0-34.0); Mean Corpuscular Volume 97.6 fL (81-99); Mean Platelet Volume 11.1 fL (7.4-10.4); Monocytes # 0.4 10^3/uL (0.2-0.9); Monocytes % 7.9 %; Neutrophils # 2.8 10^3/uL (1.8-7.7); Neutrophils % 63.8 %; Nucleated Red Blood Cells % 0 %; Platelet Count 143 10^3/cmm (130-400); Red Blood Count 3.71 10^6/uL (4.1-5.3); Red Cell Distribution Width 14.8 % (12.1-15.1); White Blood Count 4.4 10^3/uL (4.0-10.0)
[2019-11-05 11:31] LABS: Carcinoembryonic Antigen 16.7 ng/mL (0.0-4.7)
[2019-11-05 11:42] LABS: Alanine Aminotransferase 15 U/L (0-33); Albumin Level 4.3 g/dL (3.5-5.2); Alkaline Phosphatase 62 IU/L (35-105); Anion Gap 17.4 (5-19); Aspartate Amino Transferase 22 U/L (0-32); Blood Urea Nitrogen 15 mg/dL (8-23); Calcium 10.4 mg/dL (8.5-10.5); Carbon Dioxide 23 mmol/L (22-29); Chloride 102 mmol/L (98-107); Globulin 2.5 g/dL (1.3-4.6); Glomerular Filtration Rate 40.7 mL/min (90-130); Glucose 181 mg/dL (65-115); Osmolality Calculated 287 mOsm/kg (285-295); Potassium 4.4 mmol/L (3.5-5.1); Sodium 138 mmol/L (136-145); Total Bilirubin 0.3 mg/dL (0.15-1.2); Total Protein 6.8 g/dL (6.6-8.7)
[2019-11-05] MEDS: sodium chloride 0.9% 250 ML 75 ML IV (12:45)
--- NOTE | 2019-11-09 09:43 | ONC FU_ITS ---
Dr. Multani Patient Follow-Up Note Patient: Jennifer Worley Unit #: [id number]: 1950 Dicatated By: Gary Multani M.D.Date of Visit:November 05, 2019 Onc Med Follow-up/Prog Note Chief Complaint: Colon cancer. 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 She had presented with an abnormal screening colonoscopy. A malignant appearing non-obstructing colonic mass was found at the hepatic flexure. The biopsy was consistent with low-grade, moderately differentiated infiltrating adenocarcinoma. Screening chest x-ray showed mild emphysema. CT of the abdomen/pelvis on 08/05/2015 showed no evidence of distant metastatic disease. The right hepatic colonic neoplasm was seen with an adjacent foci of air consistent with small microperforations which could be related to the recent biopsy during colonoscopy. There was soft tissue prominence in the proximal descending colon and the mild thickening of the duodenum and antrum of the stomach, thought to be gastroenteritis. A small right ovarian dermoid was suspected. Of note, she had a history of duodenitis and pancreatitis in July 2014. Preoperative CEA was not obtained. On 08/06/2015 she underwent an exploratory laparotomy and right hemicolectomy. Her surgical specimen revealed a 6.1 cm adenocarcinoma, focally penetrating through muscularis propria into superficial serosal tissue, with negative margins and positive mild lymphovascular invasion. There was involvement in 3 out of 14 lymph nodes, thus pathologic stage IIIB (T3, N1b, M0). Mismatch repair proteins were proficient. Cycle 1 of adjuvant FOLFOX chemotherapy began on 09/13/2015. Her treatment was complicated by neutropenia, ANC 1300, and platelets 105. In the settings of left arm swelling, on 10/19/2015 ultrasound of the left arm revealed DVT in the left subclavian and jugular vein. The patient began on anticoagulation with apixaban. In the interim her regimen was changed XELOX, cycle 3 on 11/04/2015 and cycle 4 on 11/18/2015. Follow-up ultrasound Doppler of the left arm on 11/23/2015 showed resolution of left arm DVT. During that time she developed severe debilitating left foot pain at the level of metatarsal in the dorsum of the foot and arch. She had no neuropathy in fingers or toes. Her right leg was unaffected. A stress fracture was suspected, but MRI of the left foot just showed osteoarthritis and no acute findings. With the 5th cycle of chemotherapy the treatment was changed back to FOLFOX, but the oxaliplatin was held at that point due to the foot pain. She then continued treatment with infusional 5-FU and leucovorin. She completed 12 cycles of treatment on 03/21/2016. Her other medical illnesses include hypertension, hyperlipidemia, type II diabetes, and depression. She suffered a right hemispheric stroke in 2006. She was treated for pancreatitis in 2014. She had previuosly smoked up to 1 pack of cigarettes daily. She cut down significantly in 2013. She now smokes just very occasionally. INTERIM HISTORY: Surveillance CT scans on 12/21/2016 and on 07/11/2017 showed no evidence of neoplastic process in the chest, abdomen, or pelvis. As of her follow-up visit on 07/12/2017, her CEA has remained stable and she appeared stable clinically. She continued on observation/expectant management. She underwent back surgery in [place] on 01/24/2018. Her surveillance CT scans of the chest, abdomen, and pelvis on 02/22/2018 showed centrilobular emphysematous changes in both lungs but with no evidence of a neoplastic process in the chest. The abdomen/pelvis showed the antrum of the stomach to be overall prominent with heterogeneous wall thickening of uncertain significance. In the right lobe of the liver adjacent to the gallbladder there was abnormal liver parenchyma increase in the prior exam with heterogeneous decreased enhancement suggestive of a metastatic lesion measuring 2.7 cm. An additional focus of abnormal liver parenchyma with heterogeneous decreased enhancement at the level of the falciform ligament involving the adjacent medial and lateral segments of the left lobe measured 3.8 x 4.8 cm. There was no change in the extensive cortical atrophy of the right kidney. She is seen for a scheduled visit. With evidence of limited sites of metastatic involvement in the liver, shows referred to Dr. Pichardo in [place] for consideration of liver directed therapy. His recommendation was to initiate systemic therapy and she then returned and began a trial of chemotherapy with FOLFIRI/Avastin, cycle 1 day 1 on 04/09/2018. She tolerated it with acceptable toxicity, and she was able to continue with cycle 2 on 04/23/2018 and with cycle 3 on 05/14/2018. She was seen for a scheduled visit on 05/27/2018. At that time she was having shortness of breath, cough, and slight hemoptysis. Her CT pulmonary angiogram showed a mild burden of bilateral pulmonary artery nonocclusive emboli. Also noted was lateral middle lobe peripheral pneumonia/pneumonitis, with pulmonary infarction felt to be less likely. She began anticoagulation with apixaban. Her chemotherapy was put on hold. She had follow-up at Dr. Pichardo's office on 06/19/2018. Repeat CT abdomen/pelvis showed interval response to therapy with decrease in the size of to hepatic metastatic lesion, one of which had nearly completely resolved. Also noted was development of a small amount of nonocclusive thrombus within the SMV. Infiltrate in the right middle lobe was thought to reflect a developing resolving pneumonia. She was recommended to continue chemotherapy, and she proceeded with 4th cycle on 07/01/2018. The Avastin was omitted due to the thromboembolism. As of cycle 6 on 08/06/2018 there was a significant decline in her CEA level to 10.2 ng/mL. With cycle 8 on 08/25/2018 it had further declined to 6.3 ng/mL. As of 10/07/2018 she began her 10th cycle of treatment. CEA was down 5.4 ng/mL. She was seen for a scheduled visit on 10/19/2018. Her treatment at that point was delayed due to moderately severe neutropenia, ANC 1400. She was able to continue with cycle 11 chemotherapy on 10/29/2018 with dose reductions in both the 5-FU and the irinotecan. As of 12/24/2018 she began cycle 15 of FOLFIRI. At that point her CEA level was stable at 6.3 ng/mL. Her chemotherapy subsequently was put on hold due to a significant increase in her serum creatinine. She was then given regularly scheduled IV hydration. Her restaging CT scans of the chest, abdomen, and pelvis on 02/05/2019 showed evolving pulmonary infarct versus localized atelectasis or scarring in the right middle lobe. There was decreased size of metastatic left and right lobe liver lesions, though comparison was limited due to lack of IV contrast. There was improvement in the previously noted gastric antral thickening. An enlarged right ovary appeared stable. She was referred to Dr. Pichardo for consideration of liver directed therapy. Continued observation/expectant management was recommended. Restaging PET/CT on 03/29/2019 showed residual left hepatic lobe metastasis measuring 2.4 cm with SUV 5.9 compared to 4.6 x 3.1 cm of SUV 8.3 on the prior study from February 2018. The right hepatic lobe metastasis was noted to be less than 1 cm in size and with FDG uptake barely greater than hepatic background activity. There were no other sites of metastatic disease evident on that study. At that point she remained off chemotherapy, and she continued follow-up with Dr. Pichardo. Restaging CT scans of the chest, abdomen, and pelvis on 05/26/2019 showed development of new bilateral pulmonary nodules which were worrisome for pulmonary metastatic disease, and 1 of the 2 hepatic lesions was not noted to be slightly larger by a few millimeters. With those findings, she was scheduled to return here for further chemotherapy, and she then continued treatment with cycle 16 of FOLFIRI/Avastin on 06/04/2019. At that point her CEA level had increased to 65 ng/mL. She then continued treatment at 2-week intervals. As of 07/22/2019 she began her 19th cycle. Her CEA had declined to 23.6 ng/mL. She continued with cycle 20 on 08/05/2019. As of her visit on 08/20/2019 her treatment was put on hold due to weakness and declining performance status. Her CEA had further declined to 19.1 ng/mL. She then returned and was able to restart treatment with cycle 21 of FOLFIRI/Avastin on 09/03/2019. She tolerated it well and she then continued treatment with her cycles adjusted to a 3-week interval. She completed cycle 23 on 10/14/2019. At that point her CEA had stabilized at 17.0 ng/mL. She is seen for a follow-up visit. She has been feeling pretty good generally. She says her energy is fairly good, and she has been doing light work. However, she has been prone to falling and she says that she fell again a week ago Sunday and again last Sunday. On both occasions she was working outside and she just lost her balance. Thus far she has not sustained any significant injury. Her ECOG score is 1. She has good appetite. She has no fever or night sweats. She has had no mouth sores. She does have some sinus drainage and she occasionally coughs up some phlegm. She does not have shortness of breath or chest pain. She has a little bit of nausea. Her acid reflux has been better. She has diarrhea just every now and then. It is managed adequately with Imodium. She has become aware of some knots in her upper abdomen on the right side. She currently has no complaints. She has joint pain, mainly in the hands and knees. Recently she is also had soreness in her lower back and right hip area. She has numbness/tingling in her hands and feet. Medications: Diclofenac Sodium 1 Tablet (of 75 mg) Tablet, enteric coated Oral b.i.d. PRN, Eliquis 1 Tablet (of 5 mg) Oral b.i.d., Escitalopram Oxalate 1 (20 mg) Tablet Oral daily, Gabapentin 1 Tablet (of 300 mg) Oral t.i.d., glipiZIDE ER 1 Tablet (of 5 mg) Tablet SR 24 HR Oral daily, Hydrochlorothiazide 1 (25 mg) Tablet Oral daily, Labetalol HCl 1 (300 mg) Tablet Oral b.i.d., Lisinopril 1 (20 mg) Tablet Oral daily, MetFORMIN HCl 2 (500 mg) Tablet Oral b.i.d., ProAir HFA Aerosol, solution Inhalation PRN, Protonix 1 Tablet (of 40 mg) Tablet, enteric coated Oral daily, rOPINIRole HCl 1 Tablet (of 0.25 mg) Oral b.i.d., Simvastatin 1 (40 mg) Tablet Oral daily Allergies: No Known Allergies. Review of Systems: Constitutional - Her energy is OK. She has been doing some light work. She has good appetite. She has no fever or night sweats. ECOG score is 1, ENMT - She has sinus drainage. No mouth sores. No sore throat or difficulty swallowing, Hematologic/Lymphatic - No abnormal bruising or bleeding, Respiratory - No shortness of breath. She does cough up some phlegm. No pleuritic pain or hemoptysis, Cardiovascular - No angina pain. No palpitations, Gastrointestinal - She has a little bit of nausea or vomiting. Her acid reflux is better. She has diarrhea every now and then. It is adequately controlled with Imodium. No blood in the stool or black stools. She has noticed some knots in her upper abdomen on the right side, Genitourinary (F) - No dysuria or hematuria. No urinary frequency. No urgency or incontinence, Musculoskeletal - She has some joint pain, mainly in the hands and knees. Recently she has also been having pain in her lower back and right hip, Integumentary - No skin complications, Neurologic - No headache. She has dizziness. She has some numbness and tingling in her hands and feet, Psychiatric - No anxiety or depression. Lately she has been sleeping OK. Vital Signs: Performed on November 05, 2019 12:02 Height - 64.00 in Weight - 165.4 lbs (LOW) BSA - 1.80 sq.m BMI - 28.39 Temperature - 98.5 F Pulse - 71 /min Respiration - 22 /min BP - 143/76 mm(hg) (HIGH) O2 Sat - 98 % Pain - 3 Physical Examination: Constitutional - She looks pretty good generally, Eyes - Sclerae nonicteric. Conjunctivae clear, ENMT - No lesions noted in the oral cavity, Hematologic/Lymphatic - No cervical, clavicular, or axillary adenopathy, Respiratory - Lungs sound clear with diminished air movement bilaterally, Cardiovascular - Heart rhythm is regular. There is no murmur, gallop, or rub noted, Abdomen - Soft. There are at least 3 small subcutaneous nodules in the right upper quadrant abdominal wall, Two of which are located within her midline incisional scar. One is located just laterally to the right. Liver and spleen are not enlarged. There is no abdominal mass or ascites noted and there is no inguinal adenopathy, Extremities - Mild edema, Neurologic - There are no focal neurologic deficits noted. Lab/Imaging: Test performed on November 05, 2019 10:42 Sodium 138 mmol/L Potassium 4.4 mmol/L Chloride 102 mmol/L CO2 23 mmol/L Anion Gap 17.4 BUN 15 mg/dL Creatinine 1.3 mg/dL Cr Clearance (Est) 46.1500 mL/min eGFR 40.7 mL/min Glucose 181 mg/dL Calcium 10.4 mg/dL Protein, Total 6.8 g/dL Albumin 4.3 g/dL Globulin 2.5 g/dL Bilirubin, Total 0.3 mg/dL ALT (SGPT) 15 U/L AST (SGOT) 22 U/L Alkaline Phosphatase 62 IU/L WBC 4.4 10 3/uL RBC 3.71 10 6/uL HGB 11.4 g/dL HCT 36.2 % MCV 97.6 fL MCH 30.7 pg MCHC 31.5 g/dL RDW 14.8 % Platelet Count 143 10 3/cmm MPV 11.1 fL Neutrophils 2.8 10 3/uL Lymphocytes 1.1 10 3/uL Monocytes 0.4 10 3/uL Eosinophils 0.1 10 3/uL Basophils 0.0 10 3/uL Neutrophil % 63.8 % Lymphocyte % 24.9 % Monocyte % 7.9 % Eosinophil % 2.7 % Basophils % 0.2 % CEA 16.7 ng/mL Impression: 1. 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 Her tumor was found to be MSI stable and to harbor a KRAS mutation (12ASP). 2. She underwent right hemicolectomy on 08/06/2015 and she began adjuvant chemotherapy with modified FOLFOX in August 2015. Her treatment was complicated by port associated deep vein thrombosis and by peripheral neuropathy. Oxaliplatin was held after 4 cycles. She ultimately completed 12 cycles of treatment in March 2016. 3. In February 2018 there was a very significant increase in her CEA level and her surveillance CT scans showed 2 hepatic lesions which were consistent with metastases, one in the right lobe measuring 2.7 cm and one in the left lobe measuring 3.8 x 4.8 cm. As such, her disease at that point was stage IV (M1a). Her other medical illnesses include: 4. Hypertension. 5. Hyperlipidemia. 6. Type II diabetes. 7. Depression. 8. She has a history of pancreatitis in July 2014. 9. She has history of stroke in 2006. She was referred to Dr. Pichardo for consideration of liver directed therapy. He recommended that she first have a trial of chemotherapy. She returned here and began a course of treatment with FOLFIRI/Avastin, cycle 1 day 1 on 04/09/2018. She continued with cycle 2 on 04/23/2018 and was cycle 3 on 05/14/2018. On 05/27/2018 she presented with shortness of breath, cough, and slight hemoptysis. Her CT pulmonary angiogram showed mild burden of bilateral pulmonary artery nonocclusive emboli. There was also suspected right middle lobe pneumonia/pneumonitis, with pulmonary infarction felt to be less likely. She began anticoagulation with apixaban. Her chemotherapy has remain on hold, but she did appear to have response by CEA level and by follow-up CT scan. She continued with cycle 4 of chemotherapy on 07/01/2018, but with omission of Avastin due to the thromboembolism. She had subsequently continued treatment at 2-week intervals. As of 10/07/2018 she began her 10th cycle of treatment. CEA at that point was down to 5.4 ng/mL. Her cycle 11 treatment was delayed one week due to moderately severe neutropenia, ANC 1400. She was then able to continue treatment with dose reductions in both the 5-FU and irinotecan. As of 12/24/2018 she began cycle 15 of FOLFIRI chemotherapy. Her CEA at that point was stable at 6.3 ng/mL. Her treatment subsequently was put on hold due to a significant increase in her serum creatinine. Restaging CT scans on 02/05/2019 showed residual metastatic lesions in the left and right lobe of the liver, decreased compared to the previous study from July 2018. There were no other obvious areas of metastatic disease. She was referred to Dr. Pichardo for consideration of liver directed therapy. Continued observation/expectant management was recommended. During follow-up she has had some improvement in her performance status since stopping the chemotherapy. Her restaging PET/CT from 03/29/2019 showed residual but improved hepatic metastatic lesions compared to the study from February 2018. However, restaging CT scans on 05/26/2019 showed disease progression with development of new pulmonary metastatic disease bilaterally. There was slight enlargement of 1 of the hepatic lesions. There also was a significant increase in her CEA level. She then restarted chemotherapy with cycle 16 of FOLFIRI/Avastin on 06/04/2019. She tolerated it without acute toxicity. She was then able to continue treatment at 2-week intervals. As of 07/22/2019 she began cycle 19. At that point her CEA level had decreased significantly, to 23.6 ng/mL. She continued with cycle 20 on 08/05/2019. As of her follow-up visit on 08/20/2019 her treatment was put on hold due to weakness and declining performance status. She returned on 09/03/2019 and she was then able to continue with cycle 21 of FOLFIRI/Avastin. She then continued treatment with her cycles adjusted to a 3-week interval, which she seemed to tolerate well. As of 10/14/2019 she began her 23rd cycle. At that point her CEA had stabilized in the range of 16 to 17 ng/mL. Her clinical status has since then remained stable. She has become aware of some small nodules in the right upper quadrant abdominal wall. The significance of these is uncertain. Plan: She will proceed with cycle 24 of FOLFIRI/Avastin. The dosages will remain the same. She will be scheduled for follow-up visit in 3 weeks. In the meantime, she will be scheduled for restaging CT scans. I also will order a front-wheeled walker for her, as she is very prone to falling. Signed By: Gary Multani M.D. <<Signature on File>>
== END 2019-11-16 23:59 | disposition home or self-care (01) ==
LOC: RAD 13:00
PROVIDERS: PCP Internal Medicine; Visit Provider Internal Medicine Medical Oncology
DX: Z51.11 Encounter for antineoplastic chemotherapy (principal); C18.4 Malignant neoplasm of transverse colon; C78.7 Secondary malignant neoplasm of liver and intrahepatic bile duct; C78.02 Secondary malignant neoplasm of left lung; C78.01 Secondary malignant neoplasm of right lung; R22.2 Localized swelling, mass and lump, trunk; I10 Essential (primary) hypertension; E78.5 Hyperlipidemia, unspecified; E11.9 Type 2 diabetes mellitus without complications; F32.9 Major depressive disorder, single episode, unspecified; Z91.81 History of falling; Z86.73 Personal history of transient ischemic attack (TIA), and cerebral infarction without residual deficits; Z90.49 Acquired absence of other specified parts of digestive tract; Z86.711 Personal history of pulmonary embolism; Z79.899 Other long term (current) drug therapy; Z79.01 Long term (current) use of anticoagulants
CPT/HCPCS: 36415; 80053; 82378; 85025; 96367; 96368; 96375; 96413; 96416; 96523; 99214; J0461; J0640; J1100; J2469; J7050; J9035; J9206

== ENCOUNTER 2019-12-10 09:06 | Outpatient (CLI) | payer MEDICARE, SELFPAY ==
--- NOTE | 2019-12-10 | US_ITS ---
WS: [id number] ULTRASOUND GUIDED BIOPSY ABDOMINAL WALL MASS. HISTORY: METASTATIC COLON CANCER Procedure, risks, and complications are explained to the patient. Consent was obtained. Skin is clean sed with ChloraPrep and anesthetized with 1% buffered lidocaine. Soft tissue mass along the anterior abdominal wall has very slightly increased in size over several p rior examinations. Differential includes metastatic site versus omental herniation or fat necrosis. Small dermatome is made. Attempts at biopsy are performed with 20 and 18-gauge needles. This mass was extremely difficult to biopsy. Mass was very hard and dense and fibrotic and also mobile. Only a few times was able to penetrate the periphery of the mass in order to obtain a core. No complications we re encountered. Material was placed in formalin. US/ biopsy [id number] IMPRESSION: 1. Abdominal wall mass biopsy was very difficult to perform due to the very de nse fibrotic material. Was not able to penetrate the mass with ease. Suspect th is could be an area of fat necrosis, fibrosis or omental necrosis. Biopsy will be evaluated for metastatic site. 2. No complications.
== END 2019-12-10 09:07 | disposition home or self-care (01) ==
LOC: RAD 09:10
PROVIDERS: PCP Internal Medicine; Visit Provider Nurse Practitioner
DX: C18.9 Malignant neoplasm of colon, unspecified (principal); R19.09 Other intra-abdominal and pelvic swelling, mass and lump
CPT/HCPCS: 76942; 88309

== ENCOUNTER 2019-12-16 06:47 | Outpatient (RCR) | payer MEDICARE, SELFPAY ==
[2019-11-25 10:47] LABS: Basophils % 0.6 %; Eosinophils # 0.2 10^3/uL (0.0-0.8); Eosinophils % 5.8 %; Hematocrit 34.8 % (37.0-47.0); Hemoglobin 10.8 g/dL (11.5-15.3); Lymphocytes # 1.2 10^3/uL (0.8-4.8); Mean Corpuscular Hemoglobin 30.1 pg (28.0-34.0); Mean Corpuscular Volume 96.9 fL (81-99); Mean Platelet Volume 11.2 fL (7.4-10.4); Monocytes # 0.4 10^3/uL (0.2-0.9); Monocytes % 12.6 %; Neutrophils # 1.3 10^3/uL (1.8-7.7); Neutrophils % 41.7 %; Nucleated Red Blood Cells % 0 %; Platelet Count 139 10^3/cmm (130-400); Red Blood Count 3.59 10^6/uL (4.1-5.3); White Blood Count 3.1 10^3/uL (4.0-10.0)
[2019-11-25 11:14] LABS: Carcinoembryonic Antigen 15.6 ng/mL (0.0-4.7)
[2019-11-25 11:25] LABS: Alanine Aminotransferase 20 U/L (0-33); Albumin Level 4.2 g/dL (3.5-5.2); Alkaline Phosphatase 57 IU/L (35-105); Aspartate Amino Transferase 34 U/L (0-32); Blood Urea Nitrogen 24 mg/dL (8-23); Calcium 10.7 mg/dL (8.5-10.5); Carbon Dioxide 23 mmol/L (22-29); Chloride 101 mmol/L (98-107); Globulin 2.7 g/dL (1.3-4.6); Glomerular Filtration Rate 40.7 mL/min (90-130); Glucose 161 mg/dL (65-115); Osmolality Calculated 284 mOsm/kg (285-295); Sodium 137 mmol/L (136-145); Total Bilirubin 0.2 mg/dL (0.15-1.2); Total Protein 6.9 g/dL (6.6-8.7)
[2019-11-25] MEDS: sodium chloride 0.9% 250 ML 75 ML IV (12:56)
[2019-11-25 13:28] LABS: Magnesium 1.7 mg/dL (1.7-2.3)
[2019-11-25] MEDS: ropinirole 0.25 mg Tablet PO (14:00)
[2019-11-25] MEDS: sodium chloride 0.9% (100 ml) 100 ML 75 ML (16:06)
--- NOTE | 2019-11-29 14:32 | ONC FU_ITS ---
[facility] Patient Note Patient: Jennifer Worley Unit #: [id number]: 1950 Dictated By: Nash BranhamDate of Visit: Nov 25, 2019 Onc MED Follow-Up/Prog Note Chief Complaint: Colon cancer. 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 She had presented with an abnormal screening colonoscopy. A malignant appearing non-obstructing colonic mass was found at the hepatic flexure. The biopsy was consistent with low-grade, moderately differentiated infiltrating adenocarcinoma. Screening chest x-ray showed mild emphysema. CT of the abdomen/pelvis on 08/05/2015 showed no evidence of distant metastatic disease. The right hepatic colonic neoplasm was seen with an adjacent foci of air consistent with small microperforations which could be related to the recent biopsy during colonoscopy. There was soft tissue prominence in the proximal descending colon and the mild thickening of the duodenum and antrum of the stomach, thought to be gastroenteritis. A small right ovarian dermoid was suspected. Of note, she had a history of duodenitis and pancreatitis in July 2014. Preoperative CEA was not obtained. On 08/06/2015 she underwent an exploratory laparotomy and right hemicolectomy. Her surgical specimen revealed a 6.1 cm adenocarcinoma, focally penetrating through muscularis propria into superficial serosal tissue, with negative margins and positive mild lymphovascular invasion. There was involvement in 3 out of 14 lymph nodes, thus pathologic stage IIIB (T3, N1b, M0). Mismatch repair proteins were proficient. Cycle 1 of adjuvant FOLFOX chemotherapy began on 09/13/2015. Her treatment was complicated by neutropenia, ANC 1300, and platelets 105. In the settings of left arm swelling, on 10/19/2015 ultrasound of the left arm revealed DVT in the left subclavian and jugular vein. The patient began on anticoagulation with apixaban. In the interim her regimen was changed XELOX, cycle 3 on 11/04/2015 and cycle 4 on 11/18/2015. Follow-up ultrasound Doppler of the left arm on 11/23/2015 showed resolution of left arm DVT. During that time she developed severe debilitating left foot pain at the level of metatarsal in the dorsum of the foot and arch. She had no neuropathy in fingers or toes. Her right leg was unaffected. A stress fracture was suspected, but MRI of the left foot just showed osteoarthritis and no acute findings. With the 5th cycle of chemotherapy the treatment was changed back to FOLFOX, but the oxaliplatin was held at that point due to the foot pain. She then continued treatment with infusional 5-FU and leucovorin. She completed 12 cycles of treatment on 03/21/2016. Her other medical illnesses include hypertension, hyperlipidemia, type II diabetes, and depression. She suffered a right hemispheric stroke in 2006. She was treated for pancreatitis in 2014. She had previuosly smoked up to 1 pack of cigarettes daily. She cut down significantly in 2013. She now smokes just very occasionally. INTERIM HISTORY: Surveillance CT scans on 12/21/2016 and on 07/11/2017 showed no evidence of neoplastic process in the chest, abdomen, or pelvis. As of her follow-up visit on 07/12/2017, her CEA has remained stable and she appeared stable clinically. She continued on observation/expectant management. She underwent back surgery in [place] on 01/24/2018. Her surveillance CT scans of the chest, abdomen, and pelvis on 02/22/2018 showed centrilobular emphysematous changes in both lungs but with no evidence of a neoplastic process in the chest. The abdomen/pelvis showed the antrum of the stomach to be overall prominent with heterogeneous wall thickening of uncertain significance. In the right lobe of the liver adjacent to the gallbladder there was abnormal liver parenchyma increase in the prior exam with heterogeneous decreased enhancement suggestive of a metastatic lesion measuring 2.7 cm. An additional focus of abnormal liver parenchyma with heterogeneous decreased enhancement at the level of the falciform ligament involving the adjacent medial and lateral segments of the left lobe measured 3.8 x 4.8 cm. There was no change in the extensive cortical atrophy of the right kidney. She was seen for a scheduled visit. With evidence of limited sites of metastatic involvement in the liver, she was referred to Dr. Pichardo in [place] for consideration of liver directed therapy. His recommendation was to initiate systemic therapy and she then returned and began a trial of chemotherapy with FOLFIRI/Avastin, cycle 1 day 1 on 04/09/2018. She tolerated it with acceptable toxicity, and she was able to continue with cycle 2 on 04/23/2018 and with cycle 3 on 05/14/2018. She was seen for a scheduled visit on 05/27/2018. At that time she was having shortness of breath, cough, and slight hemoptysis. Her CT pulmonary angiogram showed a mild burden of bilateral pulmonary artery nonocclusive emboli. Also noted was lateral middle lobe peripheral pneumonia/pneumonitis, with pulmonary infarction felt to be less likely. She began anticoagulation with apixaban. Her chemotherapy was put on hold. She had follow-up at Dr. Pichardo's office on 06/19/2018. Repeat CT abdomen/pelvis showed interval response to therapy with decrease in the size of to hepatic metastatic lesion, one of which had nearly completely resolved. Also noted was development of a small amount of nonocclusive thrombus within the SMV. Infiltrate in the right middle lobe was thought to reflect a developing resolving pneumonia. She was recommended to continue chemotherapy, and she proceeded with 4th cycle on 07/01/2018. The Avastin was omitted due to the thromboembolism. As of cycle 6 on 08/06/2018 there was a significant decline in her CEA level to 10.2 ng/mL. With cycle 8 on 08/25/2018 it had further declined to 6.3 ng/mL. As of 10/07/2018 she began her 10th cycle of treatment. CEA was down 5.4 ng/mL. She was seen for a scheduled visit on 10/19/2018. Her treatment at that point was delayed due to moderately severe neutropenia, ANC 1400. She was able to continue with cycle 11 chemotherapy on 10/29/2018 with dose reductions in both the 5-FU and the irinotecan. As of 12/24/2018 she began cycle 15 of FOLFIRI. At that point her CEA level was stable at 6.3 ng/mL. Her chemotherapy subsequently was put on hold due to a significant increase in her serum creatinine. She was then given regularly scheduled IV hydration. Her restaging CT scans of the chest, abdomen, and pelvis on 02/05/2019 showed evolving pulmonary infarct versus localized atelectasis or scarring in the right middle lobe. There was decreased size of metastatic left and right lobe liver lesions, though comparison was limited due to lack of IV contrast. There was improvement in the previously noted gastric antral thickening. An enlarged right ovary appeared stable. She was referred to Dr. Pichardo for consideration of liver directed therapy. Continued observation/expectant management was recommended. Restaging PET/CT on 03/29/2019 showed residual left hepatic lobe metastasis measuring 2.4 cm with SUV 5.9 compared to 4.6 x 3.1 cm of SUV 8.3 on the prior study from February 2018. The right hepatic lobe metastasis was noted to be less than 1 cm in size and with FDG uptake barely greater than hepatic background activity. There were no other sites of metastatic disease evident on that study. At that point she remained off chemotherapy, and she continued follow-up with Dr. Pichardo. Restaging CT scans of the chest, abdomen, and pelvis on 05/26/2019 showed development of new bilateral pulmonary nodules which were worrisome for pulmonary metastatic disease, and 1 of the 2 hepatic lesions was not noted to be slightly larger by a few millimeters. With those findings, she was scheduled to return here for further chemotherapy, and she then continued treatment with cycle 16 of FOLFIRI/Avastin on 06/04/2019. At that point her CEA level had increased to 65 ng/mL. She then continued treatment at 2-week intervals. As of 07/22/2019 she began her 19th cycle. Her CEA had declined to 23.6 ng/mL. She continued with cycle 20 on 08/05/2019. As of her visit on 08/20/2019 her treatment was put on hold due to weakness and declining performance status. Her CEA had further declined to 19.1 ng/mL. She then returned and was able to restart treatment with cycle 21 of FOLFIRI/Avastin on 09/03/2019. She tolerated it well and she then continued treatment with her cycles adjusted to a 3-week interval. She completed cycle 24 on 11/05/2019. At that point her CEA had stabilized at 16.7 ng/mL. Ms. Worley underwent restaging imaging with CT of the chest abdomen pelvis with contrast on November 11, 2019. The impressions were continued slight decrease in the size of the known pulmonary metastasis. The largest measures 5 mm in the left lower lobe. Subcentimeter mediastinal and hilar lymph nodes. Chronic emphysema. Hepatic metastatic site along the falciform ligament decreased since 09/18/2018. Measurements are difficult to compare to the nonenhanced study of 05/26/2019. Stable anastomotic site at the transverse colon. No ascites or new metastatic sites identified. Soft tissue thickening along the supra umbilical anterior abdominal wall just to the right of the midline. This is new since 09/18/2018 but unchanged since 05/26/2019. This could potentially represent a metastatic nodule or be an area of scar formation from prior surgery, increased in size since the PET CT of 03/29/2019 at which there was mild increase in activity. Evaluation by ultrasound and possible biopsy may be necessary to exclude metastatic site . Ms. Worley is here today for follow-up. She is due for cycle 25 FOLFIRI and Avastin. She has been notified of her restaging imaging and we discussed it again today. She states overall she is doing pretty good. She states she is just really tired today but was out mowing her yard and weed eating yesterday. She states her only concern is that she has been toppling over when I bend over for any length of time . She states that she was bending over to pull some weeds and just toppled over . She had no apparent injury and has had no vision changes. She has had some intermittent headaches but states that is not new for her. And they have been no worse than her normal. She has had some occasional nausea. She states generally it is relieved with antiemetics. She cannot correlate it with any particular activity or in particular with the chemotherapy. She denies any new pain. She states her bowels and bladder are normal for her. She states that her breathing is good. She denies any orthopnea. She denies chest pain or palpitations. She states she is eating good. She remains active. She states she is had some intermittent leg cramps at night. She states getting up and walking tends to help them go away. Occasionally she does have to take pain medication to get some relief. She also states that she has had some hearing changes. She states if she bends over like to pick something up that she can hear better but that also makes her topple . She has had no TIA type symptoms. She has no generalized apparent weakness. Her ECOG is 0. Past Medical History: Depression Diabetes type II Hyperlipidemia Hypertension Pancreatitis in 2015 Stroke in 2006 Past Surgical History: Appendectomy Bilateral carpal tunnel Cyst removal. right wrist and left hand Left elbow repair Right oophorectomy Right rotator cuff repair x2 Right salpingectomy Tonsillectomy - AND ADENOIDS Flu vac in 2019 Prevnar 13 in 2019 Influeza vaccine in [address] pichardo in 2018 Right internal juglar Power Port-Dr Gary Pichardo ([place]) in 2018 Back surgery in 2018 Left sided port removal in 2017 Flu Vaccine in 2015 Left subclavian venous access device-Dr Wilcox in 2015 Bilateral eardrums patched in 1965 Allergies: No Known Allergies. Medications: Diclofenac Sodium 1 Tablet (of 75 mg) Tablet, enteric coated Oral b.i.d. PRN Eliquis 1 Tablet (of 5 mg) Oral b.i.d. Escitalopram Oxalate 1 (20 mg) Tablet Oral daily Gabapentin 1 Tablet (of 300 mg) Oral t.i.d. glipiZIDE ER 1 Tablet (of 5 mg) Tablet SR 24 HR Oral daily Hydrochlorothiazide 1 (25 mg) Tablet Oral daily Labetalol HCl 1 (300 mg) Tablet Oral b.i.d. Lisinopril 1 (20 mg) Tablet Oral daily MetFORMIN HCl 2 (500 mg) Tablet Oral daily ProAir HFA Aerosol, solution Inhalation PRN Protonix 1 Tablet (of 40 mg) Tablet, enteric coated Oral daily rOPINIRole HCl 1 Tablet (of 0.25 mg) Oral b.i.d. Simvastatin 1 (40 mg) Tablet Oral daily Family History: Ms. Worley's mother is alive: diabetes, dementia, hypertension, high cholesterol. Ms. Worley's father is alive: prostate cancer, diabetes, hypertension, high cholesterol. Ms. Worley has 1 brother who is alive: diabetes, high cholesterol. Social History: Ms. Worley is and she is a disabled. She is an occasional smoker. She drinks occasionally. Ms. Worley reports the following support systems: lives in own house and supportive family/friends willing to assist with needs. Her diet consists of regular meals. She indicates her activity level as: occasional exercise. patient has 3-4 alcoholic beverages per year. Patient states she smokes occasionally. Review Of Symptoms: Constitutional Denies fevers, chills, night sweats, or weight loss. She has had generalized weakness. She states at times it is hard for her to walk because her legs feel weak. Allergic/Immunologic No reactions. Eyes Denies significant visual changes. No diplopia. No amaurosis. ENMT Denies changes in hearing, sore throat, mouth sores, difficulty or changes in swallowing ability, and/or sinus drainage. Hematologic/Lymphatic Denies easy bruising or bleeding. The patient denies any tender or palpable lymph nodes. Respiratory Denies dyspnea on exertion, chest pain, or hemoptysis. Denies orthopnea. Cardiovascular Denies anginal chest pain, palpitations or orthopnea. Gastrointestinal Denies nausea, vomiting, GI bleeding, or constipation. Denies change in bowel habits and/or stool color, no heartburn or early satiety. Genitourinary (F) No hematuria, hesitancy, incontinence, vaginal bleeding, discharge or other problems with urination. Musculoskeletal Denies swelling or redness. No decreased range of motion .States intermittent hip and knee pain-chronic and controlled. She states her hand cramps at times like it is drawing up . Some knuckle swelling from arthritis. Integumentary Denies chronic rashes, inflammation, ulcerations. Neurologic Denies headache, blurred vision, and no areas of focal weakness or numbness. No sensory problems. Psychiatric Denies insomnia, depression, emma or mood swings. Vital Signs: Performed on Nov 25, 2019 11:49 Height - 64.00 in Weight - 162.2 lbs (LOW) BSA - 1.79 sq.m BMI - 27.84 Temperature - 98.2 F (LOW) Pulse - 76 /min Respiration - 19 /min BP - 141/63 mm(hg) (HIGH) O2 Sat - 98 % Pain - 2,1 - No physically strenuous activity, but ambulatory and able to carry out light or sedentary work (e.g. office work, light house work). (ECOG) Physical Examination: Constitutional Alert, oriented, no acute distress. Skin pink, warm and dry. Head Normocephalic; atraumatic. Eyes Conjunctivae and sclerae are clear and without icterus. Pupils are reactive and equal. ENMT No oral exudates, ulcers, masses, thrush or mucositis. Oropharynx clear. Tongue normal. Neck Supple without masses or thyromegaly. No jugular venous distension. Hematologic/Lymphatic No petechiae or purpura. No tender or palpable lymph nodes in the cervical, supraclavicular area. Respiratory Lungs are clear to auscultation without rhonchi or wheezing. Cardiovascular Regular rate and rhythm of heart without murmurs,clicks, gallops or rubs. Chest Chest is symmetric without chest wall deformities. Right venous access device is unremarkable. Abdomen Non-tender, non-distended, no masses or ascites. Good bowel sounds noted in all quads. No guarding or rebound tenderness. No pulsatile masses. Back/Spine Non-tender to palpation. Extremities No visible deformities, no cyanosis, clubbing or edema. Musculoskeletal No tenderness or swelling, normal range of motion without obvious weakness. Integumentary No rashes or lesions. Neurologic No sensory or motor deficits, normal cerebellar function, normal gait-for her. Psychiatric Alert and oriented times three. Coherent speech. Verbalizes understanding of our discussions today. Laboratory:Test performed on Nov 25, 2019 10:15 Sodium 137 mmol/L Potassium 4.0 mmol/L Chloride 101 mmol/L CO2 23 mmol/L Anion Gap 17.0 BUN 24 mg/dL Creatinine 1.3 mg/dL Cr Clearance (Est) 46.1500 mL/min eGFR 40.7 mL/min Glucose 161 mg/dL Calcium 10.7 mg/dL Protein, Total 6.9 g/dL Albumin 4.2 g/dL Globulin 2.7 g/dL Bilirubin, Total 0.2 mg/dL ALT (SGPT) 20 U/L AST (SGOT) 34 U/L Alkaline Phosphatase 57 IU/L WBC 3.1 10 3/uL RBC 3.59 10 6/uL HGB 10.8 g/dL HCT 34.8 % MCV 96.9 fL MCH 30.1 pg MCHC 31.0 g/dL RDW 15.0 % Platelet Count 139 10 3/cmm MPV 11.2 fL Neutrophils 1.3 10 3/uL Lymphocytes 1.2 10 3/uL Monocytes 0.4 10 3/uL Eosinophils 0.2 10 3/uL Basophils 0.0 10 3/uL Neutrophil % 41.7 % Lymphocyte % 39.0 % Monocyte % 12.6 % Eosinophil % 5.8 % Basophils % 0.6 % NRBC % 0 % CEA 15.6 ng/mL Test performed on Nov 25, 2019 00:00 Magnesium 1.7 mg/dL Impression: 1. 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 Her tumor was found to be MSI stable and to harbor a KRAS mutation (12ASP). 2. She underwent right hemicolectomy on 08/06/2015 and she began adjuvant chemotherapy with modified FOLFOX in August 2015. Her treatment was complicated by port associated deep vein thrombosis and by peripheral neuropathy. Oxaliplatin was held after 4 cycles. She ultimately completed 12 cycles of treatment in March 2016. 3. In February 2018 there was a very significant increase in her CEA level and her surveillance CT scans showed 2 hepatic lesions which were consistent with metastases, one in the right lobe measuring 2.7 cm and one in the left lobe measuring 3.8 x 4.8 cm. As such, her disease at that point was stage IV (M1a). Her other medical illnesses include: 4. Hypertension. 5. Hyperlipidemia. 6. Type II diabetes. 7. Depression. 8. She has a history of pancreatitis in July 2014. 9. She has history of stroke in 2006. She was referred to Dr. Pichardo for consideration of liver directed therapy. He recommended that she first have a trial of chemotherapy. She returned here and began a course of treatment with FOLFIRI/Avastin, cycle 1 day 1 on 04/09/2018. She continued with cycle 2 on 04/23/2018 and was cycle 3 on 05/14/2018. On 05/27/2018 she presented with shortness of breath, cough, and slight hemoptysis. Her CT pulmonary angiogram showed mild burden of bilateral pulmonary artery nonocclusive emboli. There was also suspected right middle lobe pneumonia/pneumonitis, with pulmonary infarction felt to be less likely. She began anticoagulation with apixaban. Her chemotherapy has remain on hold, but she did appear to have response by CEA level and by follow-up CT scan. She continued with cycle 4 of chemotherapy on 07/01/2018, but with omission of Avastin due to the thromboembolism. She had subsequently continued treatment at 2-week intervals. As of 10/07/2018 she began her 10th cycle of treatment. CEA at that point was down to 5.4 ng/mL. Her cycle 11 treatment was delayed one week due to moderately severe neutropenia, ANC 1400. She was then able to continue treatment with dose reductions in both the 5-FU and irinotecan. As of 12/24/2018 she began cycle 15 of FOLFIRI chemotherapy. Her CEA at that point was stable at 6.3 ng/mL. Her treatment subsequently was put on hold due to a significant increase in her serum creatinine. Restaging CT scans on 02/05/2019 showed residual metastatic lesions in the left and right lobe of the liver, decreased compared to the previous study from July 2018. There were no other obvious areas of metastatic disease. She was referred to Dr. Pichardo for consideration of liver directed therapy. Continued observation/expectant management was recommended. During follow-up she has had some improvement in her performance status since stopping the chemotherapy. Her restaging PET/CT from 03/29/2019 showed residual but improved hepatic metastatic lesions compared to the study from February 2018. However, restaging CT scans on 05/26/2019 showed disease progression with development of new pulmonary metastatic disease bilaterally. There was slight enlargement of 1 of the hepatic lesions. There also was a significant increase in her CEA level. She then restarted chemotherapy with cycle 16 of FOLFIRI/Avastin on 06/04/2019. She tolerated it without acute toxicity. She was then able to continue treatment at 2-week intervals. As of 07/22/2019 she began cycle 19. At that point her CEA level had decreased significantly, to 23.6 ng/mL. She continued with cycle 20 on 08/05/2019. As of her follow-up visit on 08/20/2019 her treatment was put on hold due to weakness and declining performance status. She returned on 09/03/2019 and she was then able to continue with cycle 21 of FOLFIRI/Avastin. She then continued treatment with her cycles adjusted to a 3-week interval, which she seemed to tolerate well. As of 10/14/2019 she began her 23rd cycle. At that point her CEA had stabilized in the range of 16 to 17 ng/mL. Her clinical status has since then remained stable. She has become aware of some small nodules in the right upper quadrant abdominal wall. The significance of these is uncertain. Ms. Worley underwent restaging imaging with CT of the chest abdomen pelvis with contrast on November 11, 2019. The impressions were continued slight decrease in the size of the known pulmonary metastasis. The largest measures 5 mm in the left lower lobe. Subcentimeter mediastinal and hilar lymph nodes. Chronic emphysema. Hepatic metastatic site along the falciform ligament decreased since 09/18/2018. Measurements are difficult to compare to the nonenhanced study of 05/26/2019. Stable anastomotic site at the transverse colon. No ascites or new metastatic sites identified. Soft tissue thickening along the supra umbilical anterior abdominal wall just to the right of the midline. This is new since 09/18/2018 but unchanged since 05/26/2019. This could potentially represent a metastatic nodule or be an area of scar formation from prior surgery, increased in size since the PET CT of 03/29/2019 at which there was mild increase in activity. Evaluation by ultrasound and possible biopsy may be necessary to exclude metastatic site . She continues with FOLFIRI/Avastin. Plan: 1. Proceed with cycle 25 of FOLFIRI/Avastin. The dosages will remain the same. She will require Neulasta support today given her ANC is 1300. 2. Continue current antiemetics as they are working well for her when she utilizes them. 3. MRI of the head with contrast to evaluate frequent falls (loss of balance) and nausea hx of CVA and metastatic colon cancer. 4. Today's labs reviewed in detail and discussed with Mrs. Worley and a copy was given to her. WBC 3.1, hemoglobin 10.8, platelets 139,000 neutrophils are 1300 chemistries unremarkable her creatinine is 1.3 LFTs are normal. Her CEA today is 15.6. 5. Ms. Worlye states she has a follow-up with Dr. Pichardo on December 01. A copy of the CT was given to her to take to him if he did not already have one. 6. We will plan to see her back in 3 weeks with CBC CMP CEA and follow-up for FOLFIRI/Avastin. 7. I did ask for magnesium to the blood in the lab today (given that she states after we got back to chemo suite that she has been having some leg cramps at night). I did go ahead and send in a prescription for Requip for her leg cramps /restless leg syndrome. 8. Mrs. Worley was instructed to contact us in the interim should questions or problems arise. Signed By: Nash Branham-TWAN, [id number] Gary Multani MD <<Signature on File>>
--- NOTE | 2019-12-10 09:15 | US_ITS ---
WS: [id number] ULTRASOUND GUIDED BIOPSY ABDOMINAL WALL MASS. HISTORY: METASTATIC COLON CANCER Procedure, risks, and complications are explained to the patient. Consent was obtained. Skin is clean sed with ChloraPrep and anesthetized with 1% buffered lidocaine. Soft tissue mass along the anterior abdominal wall has very slightly increased in size over several p rior examinations. Differential includes metastatic site versus omental herniation or fat necrosis. Small dermatome is made. Attempts at biopsy are performed with 20 and 18-gauge needles. This mass was extremely difficult to biopsy. Mass was very hard and dense and fibrotic and also mobile. Only a few times was able to penetrate the periphery of the mass in order to obtain a core. No complications we re encountered. Material was placed in formalin.
[2019-12-16 10:48] LABS: Basophils % 0.4 %; Eosinophils # 0.2 10^3/uL (0.0-0.8); Eosinophils % 3.1 %; Hematocrit 35.7 % (37.0-47.0); Hemoglobin 11.3 g/dL (11.5-15.3); Lymphocytes # 1.1 10^3/uL (0.8-4.8); Lymphocytes % 21.5 %; Mean Corpuscular HGB Conc 31.7 g/dL (30.0-36.0); Mean Corpuscular Hemoglobin 30.6 pg (28.0-34.0); Mean Corpuscular Volume 96.7 fL (81-99); Mean Platelet Volume 11.4 fL (7.4-10.4); Monocytes # 0.4 10^3/uL (0.2-0.9); Monocytes % 7.6 %; Neutrophils # 3.3 10^3/uL (1.8-7.7); Neutrophils % 67.2 %; Nucleated Red Blood Cells % 0 %; Platelet Count 125 10^3/cmm (130-400); Red Blood Count 3.69 10^6/uL (4.1-5.3); Red Cell Distribution Width 16.2 % (12.1-15.1); White Blood Count 4.9 10^3/uL (4.0-10.0)
[2019-12-16 11:21] LABS: Carcinoembryonic Antigen 15.2 ng/mL (0.0-4.7)
[2019-12-16 11:32] LABS: Alanine Aminotransferase 22 U/L (0-33); Albumin Level 4.1 g/dL (3.5-5.2); Alkaline Phosphatase 73 IU/L (35-105); Anion Gap 16.9 (5-19); Aspartate Amino Transferase 33 U/L (0-32); Blood Urea Nitrogen 15 mg/dL (8-23); Calcium 9.8 mg/dL (8.5-10.5); Carbon Dioxide 25 mmol/L (22-29); Chloride 104 mmol/L (98-107); Globulin 2.6 g/dL (1.3-4.6); Glomerular Filtration Rate 37.4 mL/min (90-130); Glucose 144 mg/dL (65-115); Osmolality Calculated 293 mOsm/kg (285-295); Potassium 3.9 mmol/L (3.5-5.1); Sodium 142 mmol/L (136-145); Total Bilirubin 0.2 mg/dL (0.15-1.2); Total Protein 6.7 g/dL (6.6-8.7)
[2019-12-16] MEDS: diphenoxylate/atropine Tablet 1 TAB PO (12:53)
[2019-12-16] MEDS: sodium chloride 0.9% 250 ML 75 ML IV (13:14)
[2019-12-16] MEDS: palonosetron 0.25 mg/5 mL SDV IV (13:15)
--- NOTE | 2019-12-18 12:38 | ONC FU_ITS ---
[facility] Patient Note Patient: Jennifer Worley Unit #: [id number]: 1950 Dictated By: Nash BranhamDate of Visit: Dec 16, 2019 Onc MED Follow-Up/Prog Note Chief Complaint: Colon cancer. 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 She had presented with an abnormal screening colonoscopy. A malignant appearing non-obstructing colonic mass was found at the hepatic flexure. The biopsy was consistent with low-grade, moderately differentiated infiltrating adenocarcinoma. Screening chest x-ray showed mild emphysema. CT of the abdomen/pelvis on 08/05/2015 showed no evidence of distant metastatic disease. The right hepatic colonic neoplasm was seen with an adjacent foci of air consistent with small microperforations which could be related to the recent biopsy during colonoscopy. There was soft tissue prominence in the proximal descending colon and the mild thickening of the duodenum and antrum of the stomach, thought to be gastroenteritis. A small right ovarian dermoid was suspected. Of note, she had a history of duodenitis and pancreatitis in July 2014. Preoperative CEA was not obtained. On 08/06/2015 she underwent an exploratory laparotomy and right hemicolectomy. Her surgical specimen revealed a 6.1 cm adenocarcinoma, focally penetrating through muscularis propria into superficial serosal tissue, with negative margins and positive mild lymphovascular invasion. There was involvement in 3 out of 14 lymph nodes, thus pathologic stage IIIB (T3, N1b, M0). Mismatch repair proteins were proficient. Cycle 1 of adjuvant FOLFOX chemotherapy began on 09/13/2015. Her treatment was complicated by neutropenia, ANC 1300, and platelets 105. In the settings of left arm swelling, on 10/19/2015 ultrasound of the left arm revealed DVT in the left subclavian and jugular vein. The patient began on anticoagulation with apixaban. In the interim her regimen was changed XELOX, cycle 3 on 11/04/2015 and cycle 4 on 11/18/2015. Follow-up ultrasound Doppler of the left arm on 11/23/2015 showed resolution of left arm DVT. During that time she developed severe debilitating left foot pain at the level of metatarsal in the dorsum of the foot and arch. She had no neuropathy in fingers or toes. Her right leg was unaffected. A stress fracture was suspected, but MRI of the left foot just showed osteoarthritis and no acute findings. With the 5th cycle of chemotherapy the treatment was changed back to FOLFOX, but the oxaliplatin was held at that point due to the foot pain. She then continued treatment with infusional 5-FU and leucovorin. She completed 12 cycles of treatment on 03/21/2016. Her other medical illnesses include hypertension, hyperlipidemia, type II diabetes, and depression. She suffered a right hemispheric stroke in 2006. She was treated for pancreatitis in 2014. She had previuosly smoked up to 1 pack of cigarettes daily. She cut down significantly in 2013. She now smokes just very occasionally. INTERIM HISTORY: Surveillance CT scans on 12/21/2016 and on 07/11/2017 showed no evidence of neoplastic process in the chest, abdomen, or pelvis. As of her follow-up visit on 07/12/2017, her CEA has remained stable and she appeared stable clinically. She continued on observation/expectant management. She underwent back surgery in [place] on 01/24/2018. Her surveillance CT scans of the chest, abdomen, and pelvis on 02/22/2018 showed centrilobular emphysematous changes in both lungs but with no evidence of a neoplastic process in the chest. The abdomen/pelvis showed the antrum of the stomach to be overall prominent with heterogeneous wall thickening of uncertain significance. In the right lobe of the liver adjacent to the gallbladder there was abnormal liver parenchyma increase in the prior exam with heterogeneous decreased enhancement suggestive of a metastatic lesion measuring 2.7 cm. An additional focus of abnormal liver parenchyma with heterogeneous decreased enhancement at the level of the falciform ligament involving the adjacent medial and lateral segments of the left lobe measured 3.8 x 4.8 cm. There was no change in the extensive cortical atrophy of the right kidney. She was seen for a scheduled visit. With evidence of limited sites of metastatic involvement in the liver, she was referred to Dr. Pichardo in [place] for consideration of liver directed therapy. His recommendation was to initiate systemic therapy and she then returned and began a trial of chemotherapy with FOLFIRI/Avastin, cycle 1 day 1 on 04/09/2018. She tolerated it with acceptable toxicity, and she was able to continue with cycle 2 on 04/23/2018 and with cycle 3 on 05/14/2018. She was seen for a scheduled visit on 05/27/2018. At that time she was having shortness of breath, cough, and slight hemoptysis. Her CT pulmonary angiogram showed a mild burden of bilateral pulmonary artery nonocclusive emboli. Also noted was lateral middle lobe peripheral pneumonia/pneumonitis, with pulmonary infarction felt to be less likely. She began anticoagulation with apixaban. Her chemotherapy was put on hold. She had follow-up at Dr. Pichardo's office on 06/19/2018. Repeat CT abdomen/pelvis showed interval response to therapy with decrease in the size of to hepatic metastatic lesion, one of which had nearly completely resolved. Also noted was development of a small amount of nonocclusive thrombus within the SMV. Infiltrate in the right middle lobe was thought to reflect a developing resolving pneumonia. She was recommended to continue chemotherapy, and she proceeded with 4th cycle on 07/01/2018. The Avastin was omitted due to the thromboembolism. As of cycle 6 on 08/06/2018 there was a significant decline in her CEA level to 10.2 ng/mL. With cycle 8 on 08/25/2018 it had further declined to 6.3 ng/mL. As of 10/07/2018 she began her 10th cycle of treatment. CEA was down 5.4 ng/mL. She was seen for a scheduled visit on 10/19/2018. Her treatment at that point was delayed due to moderately severe neutropenia, ANC 1400. She was able to continue with cycle 11 chemotherapy on 10/29/2018 with dose reductions in both the 5-FU and the irinotecan. As of 12/24/2018 she began cycle 15 of FOLFIRI. At that point her CEA level was stable at 6.3 ng/mL. Her chemotherapy subsequently was put on hold due to a significant increase in her serum creatinine. She was then given regularly scheduled IV hydration. Her restaging CT scans of the chest, abdomen, and pelvis on 02/05/2019 showed evolving pulmonary infarct versus localized atelectasis or scarring in the right middle lobe. There was decreased size of metastatic left and right lobe liver lesions, though comparison was limited due to lack of IV contrast. There was improvement in the previously noted gastric antral thickening. An enlarged right ovary appeared stable. She was referred to Dr. Pichardo for consideration of liver directed therapy. Continued observation/expectant management was recommended. Restaging PET/CT on 03/29/2019 showed residual left hepatic lobe metastasis measuring 2.4 cm with SUV 5.9 compared to 4.6 x 3.1 cm of SUV 8.3 on the prior study from February 2018. The right hepatic lobe metastasis was noted to be less than 1 cm in size and with FDG uptake barely greater than hepatic background activity. There were no other sites of metastatic disease evident on that study. At that point she remained off chemotherapy, and she continued follow-up with Dr. Pichardo. Restaging CT scans of the chest, abdomen, and pelvis on 05/26/2019 showed development of new bilateral pulmonary nodules which were worrisome for pulmonary metastatic disease, and 1 of the 2 hepatic lesions was not noted to be slightly larger by a few millimeters. With those findings, she was scheduled to return here for further chemotherapy, and she then continued treatment with cycle 16 of FOLFIRI/Avastin on 06/04/2019. At that point her CEA level had increased to 65 ng/mL. She then continued treatment at 2-week intervals. As of 07/22/2019 she began her 19th cycle. Her CEA had declined to 23.6 ng/mL. She continued with cycle 20 on 08/05/2019. As of her visit on 08/20/2019 her treatment was put on hold due to weakness and declining performance status. Her CEA had further declined to 19.1 ng/mL. She then returned and was able to restart treatment with cycle 21 of FOLFIRI/Avastin on 09/03/2019. She tolerated it well and she then continued treatment with her cycles adjusted to a 3-week interval. She completed cycle 24 on 11/05/2019. At that point her CEA had stabilized at 16.7 ng/mL. Ms. Worley underwent restaging imaging with CT of the chest abdomen pelvis with contrast on November 11, 2019. The impressions were continued slight decrease in the size of the known pulmonary metastasis. The largest measures 5 mm in the left lower lobe. Subcentimeter mediastinal and hilar lymph nodes. Chronic emphysema. Hepatic metastatic site along the falciform ligament decreased since 09/18/2018. Measurements are difficult to compare to the nonenhanced study of 05/26/2019. Stable anastomotic site at the transverse colon. No ascites or new metastatic sites identified. Soft tissue thickening along the supra umbilical anterior abdominal wall just to the right of the midline. This is new since 09/18/2018 but unchanged since 05/26/2019. This could potentially represent a metastatic nodule or be an area of scar formation from prior surgery, increased in size since the PET CT of 03/29/2019 at which there was mild increase in activity. Evaluation by ultrasound and possible biopsy may be necessary to exclude metastatic site . Ms. Worley is here today for follow-up. She is due for cycle 26 FOLFIRI and Avastin. She denies any new concerns today. She has had no TIA type symptoms. She has no apparent weakness today. She states she is having some weakness for a few days after chemotherapy. She states she is having diarrhea after treatment but has not tried Lomotil It is hard to determine how much diarrhea she is having by her history. She denies any fever or chills. She is had no signs of infection for at least the last 72 hours. She denies any mouth sores sore throat or difficulty swallowing. She denies any skin changes. She has had no hand-foot syndromes. She denies any worsening neuropathy. She states her appetite is good for the most part. She states she is had some blistery-like rash on her arms back and abdomen. She states it itches like crazy but when she scratches it it goes away. She has not noted any actual bites or bugs. I do not see any lesions particular today. There is evidence of scratching but no signs of any type of infection. The pattern has not been linear is just seems to be scattered. She denies any new shortness of breath. She denies any chest pain or palpitations. Her ECOG is 0. Past Medical History: Depression Diabetes type II Hyperlipidemia Hypertension Pancreatitis in 2015 Stroke in 2006 Past Surgical History: Appendectomy Bilateral carpal tunnel Cyst removal. right wrist and left hand Left elbow repair Right oophorectomy Right rotator cuff repair x2 Right salpingectomy Tonsillectomy - AND ADENOIDS Flu vac in 2019 Prevnar 13 in 2019 Influeza vaccine in [address] pichardo in 2018 Right internal juglar Power Port-Dr Gary Pichardo ([place]) in 2018 Back surgery in 2018 Left sided port removal in 2017 Flu Vaccine in 2016 Left subclavian venous access device-Dr Wilcox in 2016 Bilateral eardrums patched in 1965 Allergies: No Known Allergies. Medications: Diclofenac Sodium 1 Tablet (of 75 mg) Tablet, enteric coated Oral b.i.d. PRN Eliquis 1 Tablet (of 5 mg) Oral b.i.d. Escitalopram Oxalate 1 (20 mg) Tablet Oral daily Gabapentin 1 Tablet (of 300 mg) Oral t.i.d. glipiZIDE ER 1 Tablet (of 5 mg) Tablet SR 24 HR Oral daily Hydrochlorothiazide 1 (25 mg) Tablet Oral daily Labetalol HCl 1 (300 mg) Tablet Oral b.i.d. Lisinopril 1 (20 mg) Tablet Oral daily MetFORMIN HCl 2 (500 mg) Tablet Oral daily ProAir HFA Aerosol, solution Inhalation PRN Protonix 1 Tablet (of 40 mg) Tablet, enteric coated Oral daily rOPINIRole HCl 1 Tablet (of 0.25 mg) Oral b.i.d. Simvastatin 1 (40 mg) Tablet Oral daily Family History: Ms. Worley's mother is alive: diabetes, dementia, hypertension, high cholesterol. Ms. Worley's father is alive: prostate cancer, diabetes, hypertension, high cholesterol. Ms. Worley has 1 brother who is alive: diabetes, high cholesterol. Social History: Ms. Worley is and she is a disabled. She is an occasional smoker who smokes 0.5 packs/day. She drinks occasionally. Ms. Worley reports the following support systems: lives in own house and supportive family/friends willing to assist with needs. Her diet consists of regular meals. She indicates her activity level as: occasional exercise. Review Of Symptoms: Constitutional Denies fevers, chills, night sweats, or weight loss. She has been active at home. She tires easily but recovers with rest. Eyes Denies significant visual changes. No diplopia. No amaurosis. ENMT Denies changes in hearing, sore throat, mouth sores, difficulty or changes in swallowing ability, and/or sinus drainage. Hematologic/Lymphatic Denies easy bruising or bleeding. The patient denies any tender or palpable lymph nodes. Respiratory Denies dyspnea on exertion, chest pain, or hemoptysis. Denies orthopnea. Cardiovascular Denies anginal chest pain, palpitations or orthopnea. Gastrointestinal Denies nausea, vomiting, GI bleeding, or constipation. Denies change in bowel habits and/or stool color, no heartburn or early satiety. Genitourinary (F) No hematuria, hesitancy, incontinence, vaginal bleeding, discharge or other problems with urination. Musculoskeletal Denies swelling or redness. No decreased range of motion. States intermittent hip and knee pain-chronic and controlled. Some knuckle swelling from arthritis. Integumentary Denies chronic rashes, inflammation, ulcerations. New onset of blisters that itch like crazy but once I scratch them, they go away . None at present-has affected arms, chest, abdomen and back at times. Neurologic Denies headache, blurred vision, and no areas of focal weakness or numbness. No sensory problems. Psychiatric Denies insomnia, depression, emma or mood swings. Vital Signs: Performed on Dec 16, 2019 12:02 Height - 64.00 in Weight - 162.6 lbs (HIGH) BSA - 1.79 sq.m BMI - 27.91 Temperature - 98.2 F (LOW) Pulse - 74 /min Respiration - 20 /min BP - 128/74 mm(hg) O2 Sat - 97 % Pain - 3,0 - Fully active, able to carry on all predisease activities without restrictions. (ECOG) Physical Examination: Constitutional Alert, oriented, no acute distress. Skin pink, warm and dry. Head Normocephalic; atraumatic. Eyes Conjunctivae and sclerae are clear and without icterus. Pupils are reactive and equal. Neck Supple without masses or thyromegaly. No jugular venous distension. Hematologic/Lymphatic No petechiae or purpura. No tender or palpable lymph nodes in the cervical, supraclavicular area. Respiratory Lungs are clear to auscultation without rhonchi or wheezing. Cardiovascular Regular rate and rhythm of heart without murmurs,clicks, gallops or rubs. Chest Chest is symmetric without chest wall deformities. Right venous access device is unremarkable. Abdomen Non-tender, non-distended, no masses or ascites. Good bowel sounds noted in all quads. No guarding or rebound tenderness. No pulsatile masses. Back/Spine Non-tender to palpation. Extremities No visible deformities, no cyanosis, clubbing or edema. Musculoskeletal No tenderness or swelling, normal range of motion without obvious weakness. Integumentary No rashes or lesions currently but evidence of previous lesions-scratch werner. Healing without exudate or excessive redness. no blisters' noted at present. Neurologic No sensory or motor deficits, normal cerebellar function, normal gait-for her. Psychiatric Alert and oriented times three. Coherent speech. Verbalizes understanding of our discussions today. Laboratory:Test performed on Dec 16, 2019 10:24 Sodium 142 mmol/L Potassium 3.9 mmol/L Chloride 104 mmol/L CO2 25 mmol/L Anion Gap 16.9 BUN 15 mg/dL Creatinine 1.4 mg/dL Cr Clearance (Est) 42.8500 mL/min eGFR 37.4 mL/min Glucose 144 mg/dL Calcium 9.8 mg/dL Protein, Total 6.7 g/dL Albumin 4.1 g/dL Globulin 2.6 g/dL Bilirubin, Total 0.2 mg/dL ALT (SGPT) 22 U/L AST (SGOT) 33 U/L Alkaline Phosphatase 73 IU/L WBC 4.9 10 3/uL RBC 3.69 10 6/uL HGB 11.3 g/dL HCT 35.7 % MCV 96.7 fL MCH 30.6 pg MCHC 31.7 g/dL RDW 16.2 % Platelet Count 125 10 3/cmm MPV 11.4 fL Neutrophils 3.3 10 3/uL Lymphocytes 1.1 10 3/uL Monocytes 0.4 10 3/uL Eosinophils 0.2 10 3/uL Basophils 0.0 10 3/uL Neutrophil % 67.2 % Lymphocyte % 21.5 % Monocyte % 7.6 % Eosinophil % 3.1 % Basophils % 0.4 % NRBC % 0 % CEA 15.2 ng/mL Test performed on Nov 25, 2019 00:00 Magnesium 1.7 mg/dL Test performed on Oct 14, 2019 11:12 Ua Micro: WBC 15-25 /hpf Ua Micro: RBC 5-10 /hpf Ua Micro: Squam Epith Cells 0-4 Ua Micro: Bacteria 4+ Test performed on Aug 05, 2019 10:26 Ua Micro: Trans Epith Cells 0-4 /hpf Ua Micro: Mucous TRACE Test performed on Jul 01, 2019 09:07 Manual Lymphocytes 30.2 % Manual Monocytes 8.7 % Manual Eosinophils 2.7 % Manual Basophils 0.4 % NRBCs 0 /100 WBC Impression: 1. 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 Her tumor was found to be MSI stable and to harbor a KRAS mutation (12ASP). 2. She underwent right hemicolectomy on 08/06/2015 and she began adjuvant chemotherapy with modified FOLFOX in August 2015. Her treatment was complicated by port associated deep vein thrombosis and by peripheral neuropathy. Oxaliplatin was held after 4 cycles. She ultimately completed 12 cycles of treatment in March 2016. 3. In February 2018 there was a very significant increase in her CEA level and her surveillance CT scans showed 2 hepatic lesions which were consistent with metastases, one in the right lobe measuring 2.7 cm and one in the left lobe measuring 3.8 x 4.8 cm. As such, her disease at that point was stage IV (M1a). Her other medical illnesses include: 4. Hypertension. 5. Hyperlipidemia. 6. Type II diabetes. 7. Depression. 8. She has a history of pancreatitis in July 2014. 9. She has history of stroke in 2006. She was referred to Dr. Pichardo for consideration of liver directed therapy. He recommended that she first have a trial of chemotherapy. She returned here and began a course of treatment with FOLFIRI/Avastin, cycle 1 day 1 on 04/09/2018. She continued with cycle 2 on 04/23/2018 and was cycle 3 on 05/14/2018. On 05/27/2018 she presented with shortness of breath, cough, and slight hemoptysis. Her CT pulmonary angiogram showed mild burden of bilateral pulmonary artery nonocclusive emboli. There was also suspected right middle lobe pneumonia/pneumonitis, with pulmonary infarction felt to be less likely. She began anticoagulation with apixaban. Her chemotherapy has remain on hold, but she did appear to have response by CEA level and by follow-up CT scan. She continued with cycle 4 of chemotherapy on 07/01/2018, but with omission of Avastin due to the thromboembolism. She had subsequently continued treatment at 2-week intervals. As of 10/07/2018 she began her 10th cycle of treatment. CEA at that point was down to 5.4 ng/mL. Her cycle 11 treatment was delayed one week due to moderately severe neutropenia, ANC 1400. She was then able to continue treatment with dose reductions in both the 5-FU and irinotecan. As of 12/24/2018 she began cycle 15 of FOLFIRI chemotherapy. Her CEA at that point was stable at 6.3 ng/mL. Her treatment subsequently was put on hold due to a significant increase in her serum creatinine. Restaging CT scans on 02/05/2019 showed residual metastatic lesions in the left and right lobe of the liver, decreased compared to the previous study from July 2018. There were no other obvious areas of metastatic disease. She was referred to Dr. Pichardo for consideration of liver directed therapy. Continued observation/expectant management was recommended. During follow-up she has had some improvement in her performance status since stopping the chemotherapy. Her restaging PET/CT from 03/29/2019 showed residual but improved hepatic metastatic lesions compared to the study from February 2018. However, restaging CT scans on 05/26/2019 showed disease progression with development of new pulmonary metastatic disease bilaterally. There was slight enlargement of 1 of the hepatic lesions. There also was a significant increase in her CEA level. She then restarted chemotherapy with cycle 16 of FOLFIRI/Avastin on 06/04/2019. She tolerated it without acute toxicity. She was then able to continue treatment at 2-week intervals. As of 07/22/2019 she began cycle 19. At that point her CEA level had decreased significantly, to 23.6 ng/mL. She continued with cycle 20 on 08/05/2019. As of her follow-up visit on 08/20/2019 her treatment was put on hold due to weakness and declining performance status. She returned on 09/03/2019 and she was then able to continue with cycle 21 of FOLFIRI/Avastin. She then continued treatment with her cycles adjusted to a 3-week interval, which she seemed to tolerate well. As of 10/14/2019 she began her 23rd cycle. At that point her CEA had stabilized in the range of 16 to 17 ng/mL. Her clinical status has since then remained stable. She has become aware of some small nodules in the right upper quadrant abdominal wall. The significance of these is uncertain. Ms. Worley underwent restaging imaging with CT of the chest abdomen pelvis with contrast on November 11, 2019. The impressions were continued slight decrease in the size of the known pulmonary metastasis. The largest measures 5 mm in the left lower lobe. Subcentimeter mediastinal and hilar lymph nodes. Chronic emphysema. Hepatic metastatic site along the falciform ligament decreased since 09/18/2018. Measurements are difficult to compare to the nonenhanced study of 05/26/2019. Stable anastomotic site at the transverse colon. No ascites or new metastatic sites identified. Soft tissue thickening along the supra umbilical anterior abdominal wall just to the right of the midline. This is new since 09/18/2018 but unchanged since 05/26/2019. This could potentially represent a metastatic nodule or be an area of scar formation from prior surgery, increased in size since the PET CT of 03/29/2019 at which there was mild increase in activity. Evaluation by ultrasound and possible biopsy may be necessary to exclude metastatic site . Ms. Worley had ultrasound-guided biopsy of abdominal wall mass on 12/10/2019. This was requested by Dr. Pichardo's office after her follow-up CT scan reported a soft tissue mass along the anterior abdominal wall. Dr Worley's report did state the biopsy was very difficult to perform due to thhe very dense fibrotic tissue. The final pathology is pending. She continues with FOLFIRI/Avastin. Plan: 1. Proceed with cycle 26 of FOLFIRI/Avastin. The dosages will remain the same. She will require Neulasta support today given her ANC is 3300. 2. Continue current antiemetics as they are working well for her when she utilizes them. 3. MRI of the head with contrast to evaluate frequent falls (loss of balance) and nausea hx of CVA and metastatic colon cancer. 4. Today's labs reviewed in detail and discussed with Mrs. Worley and a copy was given to her. WBC 4.9, hemoglobin 11.3, platelets 125,000 neutrophils are 3300 chemistry is unremarkable her creatinine is 1.4 LFTs are normal. Her CEA today is 15.2. 5. Ms. Worley had ultrasound-guided biopsy of abdominal wall mass. This was requested by Dr. Pichardo's office after her follow-up CT scan reported a soft tissue mass along the anterior abdominal wall. Dr Worley's report did state the biopsy was very difficult to perform due to the very dense fibrotic tissue. The final pathology is pending. 6. We will plan to see her back in 3 weeks with CBC CMP CEA and UA and follow-up for FOLFIRI/Avastin. 7. I did request we call in [facility] for her and reinforced again how to use it. 8. Mrs. Worley was instructed to contact us in the interim should questions or problems arise. Signed By: Nash Branham-, AOCNP Gary Multani MD <<Signature on File>>
== END 2019-12-16 23:59 | disposition home or self-care (01) ==
LOC: RADSHAW 06:47
PROVIDERS: PCP Internal Medicine; Visit Provider Nurse Practitioner
DX: Z51.11 Encounter for antineoplastic chemotherapy (principal); C78.7 Secondary malignant neoplasm of liver and intrahepatic bile duct; C78.01 Secondary malignant neoplasm of right lung; C78.02 Secondary malignant neoplasm of left lung; C18.4 Malignant neoplasm of transverse colon; R26.81 Unsteadiness on feet; R22.2 Localized swelling, mass and lump, trunk; R11.0 Nausea; G25.81 Restless legs syndrome; I10 Essential (primary) hypertension; E78.5 Hyperlipidemia, unspecified; E11.9 Type 2 diabetes mellitus without complications; F32.9 Major depressive disorder, single episode, unspecified; Z91.81 History of falling; Z86.73 Personal history of transient ischemic attack (TIA), and cerebral infarction without residual deficits; Z90.49 Acquired absence of other specified parts of digestive tract; Z86.711 Personal history of pulmonary embolism; Z51.81 Encounter for therapeutic drug level monitoring; Z79.899 Other long term (current) drug therapy
CPT/HCPCS: 76942; 80053; 82378; 83735; 85025; 96367; 96368; 96372; 96375; 96413; 96415; 96416; 96417; 96523; 99214; J0461; J0640; J1100; J2469; J2505; J7050; J9035; J9206

== ENCOUNTER 2020-01-01 06:48 | Outpatient (RCR) | payer MEDICARE, SELFPAY ==
[2019-12-30 10:14] LABS: Basophils % 0.3 %; Eosinophils # 0.2 10^3/uL (0.0-0.8); Eosinophils % 2.1 %; Hematocrit 34.8 % (37.0-47.0); Hemoglobin 10.6 g/dL (11.5-15.3); Lymphocytes # 0.8 10^3/uL (0.8-4.8); Lymphocytes % 10.6 %; Mean Corpuscular HGB Conc 30.5 g/dL (30.0-36.0); Mean Corpuscular Volume 98.6 fL (81-99); Mean Platelet Volume 11.7 fL (7.4-10.4); Monocytes # 0.3 10^3/uL (0.2-0.9); Monocytes % 3.8 %; Neutrophils # 5.91 10^3/uL (1.8-7.7); Neutrophils % 82.5 %; Nucleated Red Blood Cells % 0 %; Platelet Count 90 10^3/cmm (130-400); Red Blood Count 3.53 10^6/uL (4.1-5.3); Red Cell Distribution Width 17.4 % (12.1-15.1); White Blood Count 7.2 10^3/uL (4.0-10.0)
[2019-12-30 11:34] LABS: Carcinoembryonic Antigen 13.8 ng/mL (0.0-4.7)
[2019-12-30 11:45] LABS: Alanine Aminotransferase 20 U/L (0-33); Albumin Level 4.1 g/dL (3.5-5.2); Alkaline Phosphatase 98 IU/L (35-105); Anion Gap 14.2 (5-19); Aspartate Amino Transferase 24 U/L (0-32); Blood Urea Nitrogen 25 mg/dL (8-23); Calcium 9.8 mg/dL (8.5-10.5); Carbon Dioxide 24 mmol/L (22-29); Chloride 103 mmol/L (98-107); Globulin 2.4 g/dL (1.3-4.6); Glomerular Filtration Rate 26.2 mL/min (90-130); Glucose 201 mg/dL (65-115); Osmolality Calculated 287 mOsm/kg (285-295); Potassium 4.2 mmol/L (3.5-5.1); Sodium 137 mmol/L (136-145); Total Bilirubin 0.2 mg/dL (0.15-1.2); Total Protein 6.5 g/dL (6.6-8.7)
[2019-12-30] MEDS: atropine 1 mg/mL SDV 1 mL 0.4 MG IV (11:49)
[2019-12-30] MEDS: sodium chloride 0.9% 250 ML 75 ML IV (11:50)
[2019-12-30] MEDS: ropinirole 1 mg Tablet PO (13:50)
[2019-12-30 15:32] LABS: Bilirubin Urine Neg (NEGATIVE); Blood Urine Neg (Negative); Glucose Urine UA Norm (Normal); Ketones Urine Negative (Negative); Leukocyte Esterase Urine Negative (Negative); Nitrate Urine Negative (Negative); Protein Urine Neg (Negative); Specific Gravity, Urine 1.015 (1.005-1.030); Urine Appearance Clear (CLEAR); Urine Color Yellow (Yellow); Urobilinogen Urine Norm (Negative); pH Urine 5 (5-7)
[2019-12-30 15:34] LABS: Add Urine Culture? No; Bacteria Urine TRACE; RBC Urine 0-4 /hpf (0-2); Squamous Epithelial Cell Urine 0-4 (0-5); WBC Urine 0-4 /hpf (0-5)
[2020-01-01] MEDS: sodium chloride 0.9% 1,000 ML 999 ML IV (15:00)
--- NOTE | 2020-01-02 16:38 | ONC FU_ITS ---
Dr. Multani Patient Follow-Up Note Patient: Jennifer Worley Unit #: [id number]: 1950 Dicatated By: Gary Multani M.D.Date of Visit:Dec 30, 2019 Onc Med Follow-up/Prog Note Chief Complaint: Colon cancer. 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 She had presented with an abnormal screening colonoscopy. A malignant appearing non-obstructing colonic mass was found at the hepatic flexure. The biopsy was consistent with low-grade, moderately differentiated infiltrating adenocarcinoma. Screening chest x-ray showed mild emphysema. CT of the abdomen/pelvis on 08/05/2015 showed no evidence of distant metastatic disease. The right hepatic colonic neoplasm was seen with an adjacent foci of air consistent with small microperforations which could be related to the recent biopsy during colonoscopy. There was soft tissue prominence in the proximal descending colon and the mild thickening of the duodenum and antrum of the stomach, thought to be gastroenteritis. A small right ovarian dermoid was suspected. Of note, she had a history of duodenitis and pancreatitis in July 2014. Preoperative CEA was not obtained. On 08/06/2015 she underwent an exploratory laparotomy and right hemicolectomy. Her surgical specimen revealed a 6.1 cm adenocarcinoma, focally penetrating through muscularis propria into superficial serosal tissue, with negative margins and positive mild lymphovascular invasion. There was involvement in 3 out of 14 lymph nodes, thus pathologic stage IIIB (T3, N1b, M0). Mismatch repair proteins were proficient. Cycle 1 of adjuvant FOLFOX chemotherapy began on 09/13/2015. Her treatment was complicated by neutropenia, ANC 1300, and platelets 105. In the settings of left arm swelling, on 10/19/2015 ultrasound of the left arm revealed DVT in the left subclavian and jugular vein. The patient began on anticoagulation with apixaban. In the interim her regimen was changed XELOX, cycle 3 on 11/04/2015 and cycle 4 on 11/18/2015. Follow-up ultrasound Doppler of the left arm on 11/23/2015 showed resolution of left arm DVT. During that time she developed severe debilitating left foot pain at the level of metatarsal in the dorsum of the foot and arch. She had no neuropathy in fingers or toes. Her right leg was unaffected. A stress fracture was suspected, but MRI of the left foot just showed osteoarthritis and no acute findings. With the 5th cycle of chemotherapy the treatment was changed back to FOLFOX, but the oxaliplatin was held at that point due to the foot pain. She then continued treatment with infusional 5-FU and leucovorin. She completed 12 cycles of treatment on 03/21/2016. Her other medical illnesses include hypertension, hyperlipidemia, type II diabetes, and depression. She suffered a right hemispheric stroke in 2006. She was treated for pancreatitis in 2014. She had previuosly smoked up to 1 pack of cigarettes daily. She cut down significantly in 2013. She now smokes just very occasionally. INTERIM HISTORY: Surveillance CT scans on 12/21/2016 and on 07/11/2017 showed no evidence of neoplastic process in the chest, abdomen, or pelvis. As of her follow-up visit on 07/12/2017, her CEA has remained stable and she appeared stable clinically. She continued on observation/expectant management. She underwent back surgery in [place] on 01/24/2018. Her surveillance CT scans of the chest, abdomen, and pelvis on 02/22/2018 showed centrilobular emphysematous changes in both lungs but with no evidence of a neoplastic process in the chest. The abdomen/pelvis showed the antrum of the stomach to be overall prominent with heterogeneous wall thickening of uncertain significance. In the right lobe of the liver adjacent to the gallbladder there was abnormal liver parenchyma increase in the prior exam with heterogeneous decreased enhancement suggestive of a metastatic lesion measuring 2.7 cm. An additional focus of abnormal liver parenchyma with heterogeneous decreased enhancement at the level of the falciform ligament involving the adjacent medial and lateral segments of the left lobe measured 3.8 x 4.8 cm. There was no change in the extensive cortical atrophy of the right kidney. She is seen for a scheduled visit. With evidence of limited sites of metastatic involvement in the liver, shows referred to Dr. Pichardo in [place] for consideration of liver directed therapy. His recommendation was to initiate systemic therapy and she then returned and began a trial of chemotherapy with FOLFIRI/Avastin, cycle 1 day 1 on 04/09/2018. She tolerated it with acceptable toxicity, and she was able to continue with cycle 2 on 04/23/2018 and with cycle 3 on 05/14/2018. She was seen for a scheduled visit on 05/27/2018. At that time she was having shortness of breath, cough, and slight hemoptysis. Her CT pulmonary angiogram showed a mild burden of bilateral pulmonary artery nonocclusive emboli. Also noted was lateral middle lobe peripheral pneumonia/pneumonitis, with pulmonary infarction felt to be less likely. She began anticoagulation with apixaban. Her chemotherapy was put on hold. She had follow-up at Dr. Pichardo's office on 06/19/2018. Repeat CT abdomen/pelvis showed interval response to therapy with decrease in the size of to hepatic metastatic lesion, one of which had nearly completely resolved. Also noted was development of a small amount of nonocclusive thrombus within the SMV. Infiltrate in the right middle lobe was thought to reflect a developing resolving pneumonia. She was recommended to continue chemotherapy, and she proceeded with 4th cycle on 07/01/2018. The Avastin was omitted due to the thromboembolism. As of cycle 6 on 08/06/2018 there was a significant decline in her CEA level to 10.2 ng/mL. With cycle 8 on 08/25/2018 it had further declined to 6.3 ng/mL. As of 10/07/2018 she began her 10th cycle of treatment. CEA was down 5.4 ng/mL. She was seen for a scheduled visit on 10/19/2018. Her treatment at that point was delayed due to moderately severe neutropenia, ANC 1400. She was able to continue with cycle 11 chemotherapy on 10/29/2018 with dose reductions in both the 5-FU and the irinotecan. As of 12/24/2018 she began cycle 15 of FOLFIRI. At that point her CEA level was stable at 6.3 ng/mL. Her chemotherapy subsequently was put on hold due to a significant increase in her serum creatinine. She was then given regularly scheduled IV hydration. Her restaging CT scans of the chest, abdomen, and pelvis on 02/05/2019 showed evolving pulmonary infarct versus localized atelectasis or scarring in the right middle lobe. There was decreased size of metastatic left and right lobe liver lesions, though comparison was limited due to lack of IV contrast. There was improvement in the previously noted gastric antral thickening. An enlarged right ovary appeared stable. She was referred to Dr. Pichardo for consideration of liver directed therapy. Continued observation/expectant management was recommended. Restaging PET/CT on 03/29/2019 showed residual left hepatic lobe metastasis measuring 2.4 cm with SUV 5.9 compared to 4.6 x 3.1 cm of SUV 8.3 on the prior study from February 2018. The right hepatic lobe metastasis was noted to be less than 1 cm in size and with FDG uptake barely greater than hepatic background activity. There were no other sites of metastatic disease evident on that study. At that point she remained off chemotherapy, and she continued follow-up with Dr. Pichardo. Restaging CT scans of the chest, abdomen, and pelvis on 05/26/2019 showed development of new bilateral pulmonary nodules which were worrisome for pulmonary metastatic disease, and 1 of the 2 hepatic lesions was not noted to be slightly larger by a few millimeters. With those findings, she was scheduled to return here for further chemotherapy, and she then continued treatment with cycle 16 of FOLFIRI/Avastin on 06/04/2019. At that point her CEA level had increased to 65 ng/mL. She then continued treatment at 2-week intervals. As of 07/22/2019 she began her 19th cycle. Her CEA had declined to 23.6 ng/mL. She continued with cycle 20 on 08/05/2019. As of her visit on 08/20/2019 her treatment was put on hold due to weakness and declining performance status. Her CEA had further declined to 19.1 ng/mL. She then returned and was able to restart treatment with cycle 21 of FOLFIRI/Avastin on 09/03/2019. She tolerated it well. Her further treatments were then administered with her cycle adjusted to a 3-week interval. As of 10/14/2019 her CEA had stabilized at 17.0 ng/mL. She then continued treatment at 3-week intervals. At her visit in October 2019 she had become aware of subcutaneous nodules in the abdominal wall on the right side. Restaging CT scans on 11/11/2019 showed continued decrease in the size of known pulmonary metastases, the largest measuring 5 mm. Mediastinal and hilar nodes were noted to be subcentimeter. An hepatic metastatic lesion along the falciform ligament was noted to have decreased. There were no new metastatic sites identified. Soft tissue thickening along the supraumbilical anterior abdominal wall to the right of the midline was new from September 2018 and increased compared to the PET/CT from March 2019, but unchanged from the CT in May 2019. On 12/10/2019 she underwent core needle biopsy of one of the abdominal wall nodules. Pathology was nondiagnostic. The report indicated that there was very little material present for evaluation. It was mostly fibrous tissue. There were rare glands present, some with hyperchromatism, but not sufficient enough for a definitive diagnosis. She is seen for a follow-up visit. He says she feels lousy for the first day or so after her chemotherapy. Beyond that she has good days and bad days. She is able to do light work. ECOG score is 1. She has good appetite. She has no fever or night sweats. She has shortness of breath and she sometimes has cough. She does not complain of chest pain. She still has nausea at times. Her diarrhea is adequately managed with medication. She has no complaints. She has joint pain, mainly in her hands and right shoulder. She also has pain in her neck and back. She has a few headaches. She has ongoing problems with balance, and she has been prone to falling. She has numbness/tingling in her hands and feet. Medications: Diclofenac Sodium 1 Tablet (of 75 mg) Tablet, enteric coated Oral b.i.d. PRN, Eliquis 1 Tablet (of 5 mg) Oral b.i.d., Escitalopram Oxalate 1 (20 mg) Tablet Oral daily, Gabapentin 1 Tablet (of 300 mg) Oral t.i.d., glipiZIDE ER 1 Tablet (of 5 mg) Tablet SR 24 HR Oral daily, Hydrochlorothiazide 1 (25 mg) Tablet Oral daily, Labetalol HCl 1 (300 mg) Tablet Oral b.i.d., Lisinopril 1 (20 mg) Tablet Oral daily, MetFORMIN HCl 2 (500 mg) Tablet Oral daily, ProAir HFA Aerosol, solution Inhalation PRN, Protonix 1 Tablet (of 40 mg) Tablet, enteric coated Oral daily, rOPINIRole HCl 1 Tablet (of 0.25 mg) Oral b.i.d., Simvastatin 1 (40 mg) Tablet Oral daily Allergies: No Known Allergies. Review of Systems: Constitutional - She feels lousy for the first day after chemotherapy. Her energy is otherwise variable. She has limited activity, but she is able to do light work. Appetite is good and weight is stable. No fever, night sweats, or hot flashes. ECOG score is 1, ENMT - She has sinus drainage. No mouth sores. No sore throat or difficulty swallowing, Hematologic/Lymphatic - No abnormal bruising or bleeding, Respiratory - She has shortness of breathand she sometimes has cough. No pleuritic pain or hemoptysis, Cardiovascular - No angina pain. No palpitations, Gastrointestinal - She has nausea, but no vomiting. No heartburn or acid reflux. Her diarrhea is adequately managed medication. No blood in the stool or black stools, Genitourinary (F) - No dysuria or hematuria. No urinary frequency. No urgency or incontinence, Musculoskeletal - She has pain in her hands and right shoulder. She also has neck and back pain, Integumentary - No skin rash. She has developed knots in her abdominal wall, Neurologic - She has a few headaches. She has ongoing problems with balance. She has numbness/tingling in her hands and feet, Psychiatric - No anxiety or depression. She sometimes has difficulty sleeping. Vital Signs: Performed on Dec 30, 2019 11:04 Height - 64.00 in Weight - 161.6 lbs (LOW) BSA - 1.79 sq.m BMI - 27.74 Temperature - 97.4 F (LOW) Pulse - 84 /min Respiration - 24 /min BP - 141/79 mm(hg) (HIGH) O2 Sat - 97 % Pain - 0 Physical Examination: Constitutional - She looks pretty good generally, Eyes - Sclerae nonicteric. Conjunctivae clear, ENMT - No lesions noted in the oral cavity, Hematologic/Lymphatic - No cervical, clavicular, or axillary adenopathy, Respiratory - Lungs sound clear with diminished air movement bilaterally, Cardiovascular - Heart rhythm is regular. There is no murmur, gallop, or rub noted, Abdomen - Soft. The subcutaneous nodules in the right upper quadrant abdominal wall have not changed. Liver and spleen are not enlarged. There is no abdominal mass or ascites noted and there is no inguinal adenopathy, Extremities - Slight edema, Integumentary - She has developed small blisters on the dorsum of the right third and left second toes. She also has developed multiple skin ulcerations on both legs. These apparently are related to trauma, Neurologic - There are no focal neurologic deficits noted. Lab/Imaging: Test performed on Dec 30, 2019 09:45 Sodium 137 mmol/L Potassium 4.2 mmol/L Chloride 103 mmol/L CO2 24 mmol/L Anion Gap 14.2 BUN 25 mg/dL Creatinine 1.9 mg/dL Cr Clearance (Est) 31.1400 mL/min eGFR 26.2 mL/min Glucose 201 mg/dL Calcium 9.8 mg/dL Protein, Total 6.5 g/dL Albumin 4.1 g/dL Globulin 2.4 g/dL Bilirubin, Total 0.2 mg/dL ALT (SGPT) 20 U/L AST (SGOT) 24 U/L Alkaline Phosphatase 98 IU/L WBC 7.2 10 3/uL RBC 3.53 10 6/uL HGB 10.6 g/dL HCT 34.8 % MCV 98.6 fL MCH 30.0 pg MCHC 30.5 g/dL RDW 17.4 % Platelet Count 90 10 3/cmm MPV 11.7 fL Neutrophils 5.91 10 3/uL Lymphocytes 0.8 10 3/uL Monocytes 0.3 10 3/uL Eosinophils 0.2 10 3/uL Basophils 0.0 10 3/uL Neutrophil % 82.5 % Lymphocyte % 10.6 % Monocyte % 3.8 % Eosinophil % 2.1 % Basophils % 0.3 % NRBC % 0 % CEA 13.8 ng/mL Impression: 1. 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 Her tumor was found to be MSI stable and to harbor a KRAS mutation (12ASP). 2. She underwent right hemicolectomy on 08/06/2015 and she began adjuvant chemotherapy with modified FOLFOX in August 2015. Her treatment was complicated by port associated deep vein thrombosis and by peripheral neuropathy. Oxaliplatin was held after 4 cycles. She ultimately completed 12 cycles of treatment in March 2016. 3. In February 2018 there was a very significant increase in her CEA level and her surveillance CT scans showed 2 hepatic lesions which were consistent with metastases, one in the right lobe measuring 2.7 cm and one in the left lobe measuring 3.8 x 4.8 cm. As such, her disease at that point was stage IV (M1a). Her other medical illnesses include: 4. Hypertension. 5. Hyperlipidemia. 6. Type II diabetes. 7. Depression. 8. She has a history of pancreatitis in July 2014. 9. She has history of stroke in 2006. She was referred to Dr. Pichardo for consideration of liver directed therapy. He recommended that she first have a trial of chemotherapy. She returned here and began a course of treatment with FOLFIRI/Avastin, cycle 1 day 1 on 04/09/2018. She continued with cycle 2 on 04/23/2018 and was cycle 3 on 05/14/2018. On 05/27/2018 she presented with shortness of breath, cough, and slight hemoptysis. Her CT pulmonary angiogram showed mild burden of bilateral pulmonary artery nonocclusive emboli. There was also suspected right middle lobe pneumonia/pneumonitis, with pulmonary infarction felt to be less likely. She began anticoagulation with apixaban. Her chemotherapy has remain on hold, but she did appear to have response by CEA level and by follow-up CT scan. She continued with cycle 4 of chemotherapy on 07/01/2018, but with omission of Avastin due to the thromboembolism. She had subsequently continued treatment at 2-week intervals. As of 10/07/2018 she began her 10th cycle of treatment. CEA at that point was down to 5.4 ng/mL. Her cycle 11 treatment was delayed one week due to moderately severe neutropenia, ANC 1400. She was then able to continue treatment with dose reductions in both the 5-FU and irinotecan. As of 12/24/2018 she began cycle 15 of FOLFIRI chemotherapy. Her CEA at that point was stable at 6.3 ng/mL. Her treatment subsequently was put on hold due to a significant increase in her serum creatinine. Restaging CT scans on 02/05/2019 showed residual metastatic lesions in the left and right lobe of the liver, decreased compared to the previous study from July 2018. There were no other obvious areas of metastatic disease. She was referred to Dr. Pichardo for consideration of liver directed therapy. Continued observation/expectant management was recommended. During follow-up she has had some improvement in her performance status since stopping the chemotherapy. Her restaging PET/CT from 03/29/2019 showed residual but improved hepatic metastatic lesions compared to the study from February 2018. However, restaging CT scans on 05/26/2019 showed disease progression with development of new pulmonary metastatic disease bilaterally. There was slight enlargement of 1 of the hepatic lesions. There also was a significant increase in her CEA level. She then restarted chemotherapy with cycle 16 of FOLFIRI/Avastin on 06/04/2019. She tolerated it without acute toxicity. She was then able to continue treatment at 2-week intervals. As of 07/22/2019 she began cycle 19. At that point her CEA level had decreased significantly, to 23.6 ng/mL. She continued with cycle 20 on 08/05/2019. As of her follow-up visit on 08/20/2019 her treatment was put on hold due to weakness and declining performance status. She returned on 09/03/2019 and she was then able to continue with cycle 21 of FOLFIRI/Avastin. She then continued treatment with her cycles adjusted to a 3-week interval, which she seemed to tolerate well. As of 10/14/2019 she began her 23rd cycle. At that point her CEA had stabilized in the range of 16 to 17 ng/mL. At her followup visit on 11/05/2019 she had become aware of some small nodules in the right upper quadrant abdominal wall. Her restaging CT scans showed improvement in the metastatic lesions in the lung and liver. The abdominal wall nodules appeared stable compared to a May [address] scan, but progressed compared to an September 2018 CT and in March 2019 PET/CT. Core needle biopsy of an abdominal wall nodule on 12/10/2019 showed nondiagnostic pathology. Plan: In the absence of any evidence of disease progression, she will continue with cycle 27 of FOLFIRI/Avastin. The dosages will remain the same. She will be scheduled for follow-up visit in 3 weeks. In the meantime, I will arrange for her to be seen at wound care for treatment of the skin ulcerations on her legs. Signed By: Gary Multani M.D. <<Signature on File>>
== END 2020-01-16 23:59 | disposition home or self-care (01) ==
LOC: ONCMED 06:48
PROVIDERS: PCP Internal Medicine; Visit Provider Internal Medicine Medical Oncology
DX: Z51.11 Encounter for antineoplastic chemotherapy (principal); C78.02 Secondary malignant neoplasm of left lung; C78.01 Secondary malignant neoplasm of right lung; C78.7 Secondary malignant neoplasm of liver and intrahepatic bile duct; Z85.038 Personal history of other malignant neoplasm of large intestine; Z45.2 Encounter for adjustment and management of vascular access device; J43.9 Emphysema, unspecified; L98.499 Non-pressure chronic ulcer of skin of other sites with unspecified severity; I10 Essential (primary) hypertension; E78.5 Hyperlipidemia, unspecified; E11.9 Type 2 diabetes mellitus without complications; F32.9 Major depressive disorder, single episode, unspecified; F17.210 Nicotine dependence, cigarettes, uncomplicated; Z79.84 Long term (current) use of oral hypoglycemic drugs; Z86.73 Personal history of transient ischemic attack (TIA), and cerebral infarction without residual deficits; Z86.718 Personal history of other venous thrombosis and embolism
CPT/HCPCS: 80053; 81001; 82378; 85025; 96360; 96367; 96368; 96372; 96375; 96413; 96416; 96523; 99214; J0461; J0640; J1100; J2469; J2505; J7030; J7050; J9035; J9206

== ENCOUNTER 2020-01-08 13:11 | Outpatient (CLI) | payer MEDICARE, SELFPAY | END 2020-01-08 13:12 | disposition home or self-care (01) | LOC: WOUND 13:15 | PROVIDERS: PCP Internal Medicine; Visit Provider Nurse Practitioner Family | DX: E11.622 Type 2 diabetes mellitus with other skin ulcer (principal); L97.811 Non-pressure chronic ulcer of other part of right lower leg limited to breakdown of skin; L97.829 Non-pressure chronic ulcer of other part of left lower leg with unspecified severity | CPT/HCPCS: 11042; 87070; 87077; 87176; 87186; 87205; 99214 ==

== ENCOUNTER 2020-01-15 10:55 | Outpatient (CLI) | payer MEDICARE, SELFPAY | END 2020-01-15 10:56 | disposition home or self-care (01) | LOC: WOUND 10:57 | PROVIDERS: PCP Internal Medicine; Visit Provider Emergency Medicine | DX: E11.622 Type 2 diabetes mellitus with other skin ulcer (principal); L97.812 Non-pressure chronic ulcer of other part of right lower leg with fat layer exposed; L97.822 Non-pressure chronic ulcer of other part of left lower leg with fat layer exposed | CPT/HCPCS: 11042 ==

== ENCOUNTER 2020-01-27 06:05 | Outpatient (RCR) | payer MEDICARE, SELFPAY ==
[2020-01-27 09:31] LABS: Basophils % 0.4 %; Eosinophils # 0.3 10^3/uL (0.0-0.8); Eosinophils % 5.8 %; Hematocrit 35.9 % (37.0-47.0); Lymphocytes # 1.4 10^3/uL (0.8-4.8); Lymphocytes % 31.6 %; Mean Corpuscular HGB Conc 30.6 g/dL (30.0-36.0); Mean Corpuscular Hemoglobin 30.8 pg (28.0-34.0); Mean Corpuscular Volume 100.6 fL (81-99); Mean Platelet Volume 11.4 fL (7.4-10.4); Monocytes # 0.4 10^3/uL (0.2-0.9); Monocytes % 8.3 %; Neutrophils # 2.39 10^3/uL (1.8-7.7); Neutrophils % 53.7 %; Nucleated Red Blood Cells % 0 %; Platelet Count 150 10^3/cmm (130-400); Red Blood Count 3.57 10^6/uL (4.1-5.3); Red Cell Distribution Width 16.9 % (12.1-15.1); White Blood Count 4.5 10^3/uL (4.0-10.0)
[2020-01-27 09:59] LABS: Alanine Aminotransferase 34 U/L (0-33); Albumin Level 3.9 g/dL (3.5-5.2); Alkaline Phosphatase 125 IU/L (35-105); Anion Gap 12.2 (5-19); Aspartate Amino Transferase 37 U/L (0-32); Blood Urea Nitrogen 14 mg/dL (8-23); Calcium 9.3 mg/dL (8.5-10.5); Carbon Dioxide 25 mmol/L (22-29); Chloride 108 mmol/L (98-107); Globulin 2.6 g/dL (1.3-4.6); Glucose 107 mg/dL (65-115); Osmolality Calculated 289 mOsm/kg (285-295); Potassium 4.2 mmol/L (3.5-5.1); Sodium 141 mmol/L (136-145); Total Bilirubin 0.2 mg/dL (0.15-1.2); Total Protein 6.5 g/dL (6.6-8.7)
[2020-01-27 10:03] LABS: Carcinoembryonic Antigen 12.7 ng/mL (0.0-4.7)
--- NOTE | 2020-01-27 12:35 | ONC FU_ITS ---
[facility] Patient Note Patient: Jennifer Worley Unit #: [id number]: 1950 Dictated By: Nash BranhamDate of Visit: Jan 27, 2020 Onc MED Follow-Up/Prog Note Chief Complaint: Colon cancer. 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 She had presented with an abnormal screening colonoscopy. A malignant appearing non-obstructing colonic mass was found at the hepatic flexure. The biopsy was consistent with low-grade, moderately differentiated infiltrating adenocarcinoma. Screening chest x-ray showed mild emphysema. CT of the abdomen/pelvis on 08/05/2015 showed no evidence of distant metastatic disease. The right hepatic colonic neoplasm was seen with an adjacent foci of air consistent with small microperforations which could be related to the recent biopsy during colonoscopy. There was soft tissue prominence in the proximal descending colon and the mild thickening of the duodenum and antrum of the stomach, thought to be gastroenteritis. A small right ovarian dermoid was suspected. Of note, she had a history of duodenitis and pancreatitis in July 2014. Preoperative CEA was not obtained. On 08/06/2015 she underwent an exploratory laparotomy and right hemicolectomy. Her surgical specimen revealed a 6.1 cm adenocarcinoma, focally penetrating through muscularis propria into superficial serosal tissue, with negative margins and positive mild lymphovascular invasion. There was involvement in 3 out of 14 lymph nodes, thus pathologic stage IIIB (T3, N1b, M0). Mismatch repair proteins were proficient. Cycle 1 of adjuvant FOLFOX chemotherapy began on 09/13/2015. Her treatment was complicated by neutropenia, ANC 1300, and platelets 105. In the settings of left arm swelling, on 10/19/2015 ultrasound of the left arm revealed DVT in the left subclavian and jugular vein. The patient began on anticoagulation with apixaban. In the interim her regimen was changed XELOX, cycle 3 on 11/04/2015 and cycle 4 on 11/18/2015. Follow-up ultrasound Doppler of the left arm on 11/23/2015 showed resolution of left arm DVT. During that time she developed severe debilitating left foot pain at the level of metatarsal in the dorsum of the foot and arch. She had no neuropathy in fingers or toes. Her right leg was unaffected. A stress fracture was suspected, but MRI of the left foot just showed osteoarthritis and no acute findings. With the 5th cycle of chemotherapy the treatment was changed back to FOLFOX, but the oxaliplatin was held at that point due to the foot pain. She then continued treatment with infusional 5-FU and leucovorin. She completed 12 cycles of treatment on 03/21/2016. Her other medical illnesses include hypertension, hyperlipidemia, type II diabetes, and depression. She suffered a right hemispheric stroke in 2006. She was treated for pancreatitis in 2014. She had previuosly smoked up to 1 pack of cigarettes daily. She cut down significantly in 2013. She now smokes just very occasionally. INTERIM HISTORY: Surveillance CT scans on 12/21/2016 and on 07/11/2017 showed no evidence of neoplastic process in the chest, abdomen, or pelvis. As of her follow-up visit on 07/12/2017, her CEA has remained stable and she appeared stable clinically. She continued on observation/expectant management. She underwent back surgery in [place] on 01/24/2018. Her surveillance CT scans of the chest, abdomen, and pelvis on 02/22/2018 showed centrilobular emphysematous changes in both lungs but with no evidence of a neoplastic process in the chest. The abdomen/pelvis showed the antrum of the stomach to be overall prominent with heterogeneous wall thickening of uncertain significance. In the right lobe of the liver adjacent to the gallbladder there was abnormal liver parenchyma increase in the prior exam with heterogeneous decreased enhancement suggestive of a metastatic lesion measuring 2.7 cm. An additional focus of abnormal liver parenchyma with heterogeneous decreased enhancement at the level of the falciform ligament involving the adjacent medial and lateral segments of the left lobe measured 3.8 x 4.8 cm. There was no change in the extensive cortical atrophy of the right kidney. She is seen for a scheduled visit. With evidence of limited sites of metastatic involvement in the liver, shows referred to Dr. Pichardo in [place] for consideration of liver directed therapy. His recommendation was to initiate systemic therapy and she then returned and began a trial of chemotherapy with FOLFIRI/Avastin, cycle 1 day 1 on 04/09/2018. She tolerated it with acceptable toxicity, and she was able to continue with cycle 2 on 04/23/2018 and with cycle 3 on 05/14/2018. She was seen for a scheduled visit on 05/27/2018. At that time she was having shortness of breath, cough, and slight hemoptysis. Her CT pulmonary angiogram showed a mild burden of bilateral pulmonary artery nonocclusive emboli. Also noted was lateral middle lobe peripheral pneumonia/pneumonitis, with pulmonary infarction felt to be less likely. She began anticoagulation with apixaban. Her chemotherapy was put on hold. She had follow-up at Dr. Pichardo's office on 06/19/2018. Repeat CT abdomen/pelvis showed interval response to therapy with decrease in the size of to hepatic metastatic lesion, one of which had nearly completely resolved. Also noted was development of a small amount of nonocclusive thrombus within the SMV. Infiltrate in the right middle lobe was thought to reflect a developing resolving pneumonia. She was recommended to continue chemotherapy, and she proceeded with 4th cycle on 07/01/2018. The Avastin was omitted due to the thromboembolism. As of cycle 6 on 08/06/2018 there was a significant decline in her CEA level to 10.2 ng/mL. With cycle 8 on 08/25/2018 it had further declined to 6.3 ng/mL. As of 10/07/2018 she began her 10th cycle of treatment. CEA was down 5.4 ng/mL. She was seen for a scheduled visit on 10/19/2018. Her treatment at that point was delayed due to moderately severe neutropenia, ANC 1400. She was able to continue with cycle 11 chemotherapy on 10/29/2018 with dose reductions in both the 5-FU and the irinotecan. As of 12/24/2018 she began cycle 15 of FOLFIRI. At that point her CEA level was stable at 6.3 ng/mL. Her chemotherapy subsequently was put on hold due to a significant increase in her serum creatinine. She was then given regularly scheduled IV hydration. Her restaging CT scans of the chest, abdomen, and pelvis on 02/05/2019 showed evolving pulmonary infarct versus localized atelectasis or scarring in the right middle lobe. There was decreased size of metastatic left and right lobe liver lesions, though comparison was limited due to lack of IV contrast. There was improvement in the previously noted gastric antral thickening. An enlarged right ovary appeared stable. She was referred to Dr. Pichardo for consideration of liver directed therapy. Continued observation/expectant management was recommended. Restaging PET/CT on 03/29/2019 showed residual left hepatic lobe metastasis measuring 2.4 cm with SUV 5.9 compared to 4.6 x 3.1 cm of SUV 8.3 on the prior study from February 2018. The right hepatic lobe metastasis was noted to be less than 1 cm in size and with FDG uptake barely greater than hepatic background activity. There were no other sites of metastatic disease evident on that study. At that point she remained off chemotherapy, and she continued follow-up with Dr. Pichardo. Restaging CT scans of the chest, abdomen, and pelvis on 05/26/2019 showed development of new bilateral pulmonary nodules which were worrisome for pulmonary metastatic disease, and 1 of the 2 hepatic lesions was not noted to be slightly larger by a few millimeters. With those findings, she was scheduled to return here for further chemotherapy, and she then continued treatment with cycle 16 of FOLFIRI/Avastin on 06/04/2019. At that point her CEA level had increased to 65 ng/mL. She then continued treatment at 2-week intervals. As of 07/22/2019 she began her 19th cycle. Her CEA had declined to 23.6 ng/mL. She continued with cycle 20 on 08/05/2019. As of her visit on 08/20/2019 her treatment was put on hold due to weakness and declining performance status. Her CEA had further declined to 19.1 ng/mL. She then returned and was able to restart treatment with cycle 21 of FOLFIRI/Avastin on 09/03/2019. She tolerated it well. Her further treatments were then administered with her cycle adjusted to a 3-week interval. As of 10/14/2019 her CEA had stabilized at 17.0 ng/mL. She then continued treatment at 3-week intervals. At her visit in October 2019 she had become aware of subcutaneous nodules in the abdominal wall on the right side. Restaging CT scans on 11/11/2019 showed continued decrease in the size of known pulmonary metastases, the largest measuring 5 mm. Mediastinal and hilar nodes were noted to be subcentimeter. An hepatic metastatic lesion along the falciform ligament was noted to have decreased. There were no new metastatic sites identified. Soft tissue thickening along the supraumbilical anterior abdominal wall to the right of the midline was new from September 2018 and increased compared to the PET/CT from March 2019, but unchanged from the CT in May 2019. On 12/10/2019 she underwent core needle biopsy of one of the abdominal wall nodules. Pathology was nondiagnostic. The report indicated that there was very little material present for evaluation. It was mostly fibrous tissue. There were rare glands present, some with hyperchromatism, but not sufficient enough for a definitive diagnosis. She remains on FOLFIRI/Avastin. Ms Worley is here today for followup and consideration of cycle 28 FOLFIRI/Avastin. She reports she has had hernia repair and abdominal wall mass removal per Dr Pichardo on 01/16/2020. She states she feels ok. She has had some post surgical pain off and on but states she has only had to take pain medication a couple of times . She states her abdomen is still a little sore but the incision seems to be healing well. She denies any fever, chills, shortness of breath or cough. She denies any diarrhea or constipation at present. She states she has had a little runny nose, but that just started yesterday and isn't bothersome right now . Having surgery has slowed her down a little but she is still doing all her ADLs without assistance. Her ECOG is 1 today. Past Medical History: Depression Diabetes type II Hyperlipidemia Hypertension Pancreatitis in 2015 Stroke in 2007 Past Surgical History: Appendectomy Bilateral carpal tunnel Cyst removal. right wrist and left hand Hernia repair Left elbow repair Mass removed from abdominal wall Right oophorectomy Right rotator cuff repair x2 Right salpingectomy Tonsillectomy - AND ADENOIDS Flu vac in 2019 Prevnar 13 in 2019 Influeza vaccine in [address] pichardo in 2018 Right internal juglar Power Port-Dr Gary Pichardo ([place]) in 2018 Back surgery in 2018 Left sided port removal in 2017 Flu Vaccine in 2016 Left subclavian venous access device-Dr Wilcox in 2016 Bilateral eardrums patched in 1965 Allergies: No Known Allergies. Medications: Diclofenac Sodium 1 Tablet (of 75 mg) Tablet, enteric coated Oral b.i.d. PRN Eliquis 1 Tablet (of 5 mg) Oral b.i.d. Gabapentin 1 Tablet (of 300 mg) Oral t.i.d. glipiZIDE ER 1 Tablet (of 5 mg) Tablet SR 24 HR Oral daily Hydrochlorothiazide 1 (25 mg) Tablet Oral daily Labetalol HCl 1 (300 mg) Tablet Oral b.i.d. Lisinopril 1 (20 mg) Tablet Oral daily MetFORMIN HCl 2 (500 mg) Tablet Oral daily ProAir HFA Aerosol, solution Inhalation PRN Protonix 1 Tablet (of 40 mg) Tablet, enteric coated Oral daily rOPINIRole HCl 1 Tablet (of 0.25 mg) Oral b.i.d. Simvastatin 1 (40 mg) Tablet Oral daily Family History: Ms. Worley's mother is alive: diabetes, dementia, hypertension, high cholesterol. Ms. Worley's father is alive: prostate cancer, diabetes, hypertension, high cholesterol. Ms. Worley has 1 brother who is alive: diabetes, high cholesterol. Social History: Ms. Worley is and she is a disabled. She is an occasional smoker who smokes 0.5 packs/day. She drinks occasionally. Ms. Worley reports the following support systems: lives in own house and supportive family/friends willing to assist with needs. Her diet consists of regular meals. She indicates her activity level as: occasional exercise. Review Of Symptoms: Constitutional Denies fevers, chills, night sweats, or weight loss. She has been active at home. She tires easily but recovers with rest. Allergic/Immunologic No reactions. Eyes Denies significant visual changes. No diplopia. No amaurosis. ENMT Denies changes in hearing, sore throat, mouth sores, difficulty or changes in swallowing ability, and/or sinus drainage. Hematologic/Lymphatic Denies easy bruising or bleeding. The patient denies any tender or palpable lymph nodes. Respiratory Denies dyspnea on exertion, chest pain, or hemoptysis. Denies orthopnea. Cardiovascular Denies anginal chest pain, palpitations or orthopnea. Gastrointestinal Denies nausea, vomiting, GI bleeding, or constipation. Denies change in bowel habits and/or stool color, no heartburn or early satiety. Genitourinary (F) No hematuria, hesitancy, incontinence, vaginal bleeding, discharge or other problems with urination. Musculoskeletal Denies swelling or redness. No decreased range of motion. States intermittent hip and knee pain-chronic and controlled. Some knuckle swelling from arthritis. Integumentary Denies chronic rashes, inflammation, ulcerations or skin changes. Neurologic Denies headache, blurred vision, and no areas of focal weakness or numbness. No sensory problems. Psychiatric Denies insomnia, depression, emma or mood swings. Vital Signs: Performed on Jan 27, 2020 10:47 Height - 64.00 in Weight - 157.0 lbs (LOW) BSA - 1.76 sq.m BMI - 26.95 Temperature - 97.8 F (LOW) Pulse - 84 /min Respiration - 16 /min BP - 156/95 mm(hg) (HIGH) O2 Sat - 99 % Pain - 0,2 - Ambulatory/capable of all self-care, unable to perform any work activities. Up and about more than 50% of waking hours. (ECOG) Physical Examination: Constitutional Alert, oriented, no acute distress. Skin pink, warm and dry. Head Normocephalic; atraumatic. Eyes Conjunctivae and sclerae are clear and without icterus. Pupils are reactive and equal. Neck Supple without masses or thyromegaly. No jugular venous distension. Hematologic/Lymphatic No petechiae or purpura. No tender or palpable lymph nodes in the cervical, supraclavicular area. Chest Right venous access device is unremarkable. Abdomen Non-tender, non-distended, no masses or ascites. Good bowel sounds noted in all quads. No guarding or rebound tenderness. No pulsatile masses. Midline incision adhered well with no exudate. Minimal redness, no swelling. Back/Spine Non-tender to palpation. Extremities No visible deformities, no cyanosis, clubbing or edema. Musculoskeletal No tenderness or swelling, normal range of motion without obvious weakness. Integumentary No rashes or lesions. Neurologic No sensory or motor deficits, normal cerebellar function, normal gait-for her. Psychiatric Alert and oriented times three. Coherent speech. Verbalizes understanding of our discussions today. Laboratory:Test performed on Jan 27, 2020 09:05 Sodium 141 mmol/L Potassium 4.2 mmol/L Chloride 108 mmol/L CO2 25 mmol/L Anion Gap 12.2 BUN 14 mg/dL Creatinine 1.6 mg/dL Cr Clearance (Est) 36.9800 mL/min eGFR 32.0 mL/min Glucose 107 mg/dL Calcium 9.3 mg/dL Protein, Total 6.5 g/dL Albumin 3.9 g/dL Globulin 2.6 g/dL Bilirubin, Total 0.2 mg/dL ALT (SGPT) 34 U/L AST (SGOT) 37 U/L Alkaline Phosphatase 125 IU/L WBC 4.5 10 3/uL RBC 3.57 10 6/uL HGB 11.0 g/dL HCT 35.9 % MCV 100.6 fL MCH 30.8 pg MCHC 30.6 g/dL RDW 16.9 % Platelet Count 150 10 3/cmm MPV 11.4 fL Neutrophils 2.39 10 3/uL Lymphocytes 1.4 10 3/uL Monocytes 0.4 10 3/uL Eosinophils 0.3 10 3/uL Basophils 0.0 10 3/uL Neutrophil % 53.7 % Lymphocyte % 31.6 % Monocyte % 8.3 % Eosinophil % 5.8 % Basophils % 0.4 % NRBC % 0 % CEA 12.7 ng/mL Test performed on Nov 25, 2019 00:00 Magnesium 1.7 mg/dL Test performed on Oct 14, 2019 11:12 Ua Micro: WBC 15-25 /hpf Ua Micro: RBC 5-10 /hpf Ua Micro: Squam Epith Cells 0-4 Ua Micro: Bacteria 4+ Test performed on Aug 05, 2019 10:26 Ua Micro: Trans Epith Cells 0-4 /hpf Ua Micro: Mucous TRACE Impression: 1. 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 Her tumor was found to be MSI stable and to harbor a KRAS mutation (12ASP). 2. She underwent right hemicolectomy on 08/06/2015 and she began adjuvant chemotherapy with modified FOLFOX in August 2015. Her treatment was complicated by port associated deep vein thrombosis and by peripheral neuropathy. Oxaliplatin was held after 4 cycles. She ultimately completed 12 cycles of treatment in March 2016. 3. In February 2018 there was a very significant increase in her CEA level and her surveillance CT scans showed 2 hepatic lesions which were consistent with metastases, one in the right lobe measuring 2.7 cm and one in the left lobe measuring 3.8 x 4.8 cm. As such, her disease at that point was stage IV (M1a). Her other medical illnesses include: 4. Hypertension. 5. Hyperlipidemia. 6. Type II diabetes. 7. Depression. 8. She has a history of pancreatitis in July 2014. 9. She has history of stroke in 2006. She was referred to Dr. Pichardo for consideration of liver directed therapy. He recommended that she first have a trial of chemotherapy. She returned here and began a course of treatment with FOLFIRI/Avastin, cycle 1 day 1 on 04/09/2018. She continued with cycle 2 on 04/23/2018 and was cycle 3 on 05/14/2018. On 05/27/2018 she presented with shortness of breath, cough, and slight hemoptysis. Her CT pulmonary angiogram showed mild burden of bilateral pulmonary artery nonocclusive emboli. There was also suspected right middle lobe pneumonia/pneumonitis, with pulmonary infarction felt to be less likely. She began anticoagulation with apixaban. Her chemotherapy has remain on hold, but she did appear to have response by CEA level and by follow-up CT scan. She continued with cycle 4 of chemotherapy on 07/01/2018, but with omission of Avastin due to the thromboembolism. She had subsequently continued treatment at 2-week intervals. As of 10/07/2018 she began her 10th cycle of treatment. CEA at that point was down to 5.4 ng/mL. Her cycle 11 treatment was delayed one week due to moderately severe neutropenia, ANC 1400. She was then able to continue treatment with dose reductions in both the 5-FU and irinotecan. As of 12/24/2018 she began cycle 15 of FOLFIRI chemotherapy. Her CEA at that point was stable at 6.3 ng/mL. Her treatment subsequently was put on hold due to a significant increase in her serum creatinine. Restaging CT scans on 02/05/2019 showed residual metastatic lesions in the left and right lobe of the liver, decreased compared to the previous study from July 2018. There were no other obvious areas of metastatic disease. She was referred to Dr. Pichardo for consideration of liver directed therapy. Continued observation/expectant management was recommended. During follow-up she has had some improvement in her performance status since stopping the chemotherapy. Her restaging PET/CT from 03/29/2019 showed residual but improved hepatic metastatic lesions compared to the study from February 2018. However, restaging CT scans on 05/26/2019 showed disease progression with development of new pulmonary metastatic disease bilaterally. There was slight enlargement of 1 of the hepatic lesions. There also was a significant increase in her CEA level. She then restarted chemotherapy with cycle 16 of FOLFIRI/Avastin on 06/04/2019. She tolerated it without acute toxicity. She was then able to continue treatment at 2-week intervals. As of 07/22/2019 she began cycle 19. At that point her CEA level had decreased significantly, to 23.6 ng/mL. She continued with cycle 20 on 08/05/2019. As of her follow-up visit on 08/20/2019 her treatment was put on hold due to weakness and declining performance status. She returned on 09/03/2019 and she was then able to continue with cycle 21 of FOLFIRI/Avastin. She then continued treatment with her cycles adjusted to a 3-week interval, which she seemed to tolerate well. As of 10/14/2019 she began her 23rd cycle. At that point her CEA had stabilized in the range of 16 to 17 ng/mL. At her followup visit on 11/05/2019 she had become aware of some small nodules in the right upper quadrant abdominal wall. Her restaging CT scans showed improvement in the metastatic lesions in the lung and liver. The abdominal wall nodules appeared stable compared to a May [address] scan, but progressed compared to an September 2018 CT and in March 2019 PET/CT. Core needle biopsy of an abdominal wall nodule on 12/10/2019 showed nondiagnostic pathology. Ms Worley had hernia repair and abdominal wall mass removal by Dr Pichardo in [place], [place] on 01/16/2020. Her treatment will be delayed for 2 weeks while she heals and to avoid potential complications of delayed wound healing. Plan: 1. Delay cycle 28 of FOLFIRI/Avastin due to recent hernia repair and abdominal wall mass removal per Dr Pichardo on January 16, 2020. 2. Continue current medications otherwise. 3. Today's labs were reviewed in detail and discussed with Ms Worley and a copy was given to her. WBC 4.5, Hgb 11.0, platelets 150,000. ANC 2400. CEA 12.7, Creatinine 1.6 (improved from last visit). 4. We will plan to see her back in 2 weeks with CBC, CMP and CEA for consideration of resuming the FOLFIRI/Avastin. 5. Encouraged to continue care with wound clinic, she states her left leg has almost healed completely and the right one is improving. 6. Ms Worley was encouraged to call in the interim if questions or problem arise. 7. I have asked that we records records from Dr Pichardo's office for the recent hernia repair and abdominal wall mass removal. Ms Worley indicated that the pathology on the mass shows cancer . She does have a followup with him on 02/02/2020. Signed By: Nash Branham-, AOCNP Gary Multani MD <<Signature on File>>
== END 2020-01-27 23:59 | disposition home or self-care (01) ==
LOC: ONCMED 06:05
PROVIDERS: Internal Medicine Medical Oncology; PCP Internal Medicine; Visit Provider Nurse Practitioner
DX: C18.4 Malignant neoplasm of transverse colon (principal); C78.7 Secondary malignant neoplasm of liver and intrahepatic bile duct; C77.2 Secondary and unspecified malignant neoplasm of intra-abdominal lymph nodes; C78.02 Secondary malignant neoplasm of left lung; C78.01 Secondary malignant neoplasm of right lung; I10 Essential (primary) hypertension; E78.5 Hyperlipidemia, unspecified; E11.9 Type 2 diabetes mellitus without complications; F32.9 Major depressive disorder, single episode, unspecified; F17.210 Nicotine dependence, cigarettes, uncomplicated; Z98.890 Other specified postprocedural states; Z86.718 Personal history of other venous thrombosis and embolism; Z79.01 Long term (current) use of anticoagulants; Z86.711 Personal history of pulmonary embolism; Z86.73 Personal history of transient ischemic attack (TIA), and cerebral infarction without residual deficits; Z79.899 Other long term (current) drug therapy
CPT/HCPCS: 36591; 80053; 82378; 85025; 99214

== ENCOUNTER 2020-01-29 13:25 | Outpatient (CLI) | payer MEDICARE, SELFPAY | END 2020-01-29 13:26 | disposition home or self-care (01) | LOC: WOUND 13:27 | PROVIDERS: PCP Internal Medicine; Visit Provider Nurse Practitioner Family | DX: E11.622 Type 2 diabetes mellitus with other skin ulcer (principal); L97.812 Non-pressure chronic ulcer of other part of right lower leg with fat layer exposed; L97.822 Non-pressure chronic ulcer of other part of left lower leg with fat layer exposed | CPT/HCPCS: 11042 ==

== ENCOUNTER 2020-01-30 10:11 | Outpatient (CLI) | payer MEDICARE, SELFPAY ==
--- NOTE | 2020-01-30 10:15 | USCV_ITS ---
Jennifer Worley Age: 69 Gender: F : 1950 Exam Date: 01/30/2020 10:36 Ordering Phys: Rebeca Garrett Technologist: Josh Simons Exam Location: [facility] [place] Indication: HISTORY: Ulcers. PROCEDURES: Bilateral duplex Venous Insufficiency study of the Deep and Superficial systems was carried out according to normal protocol with the patient in supine positon for deep system and dependent position for the superficial system. FINDINGS: All deep veins demonstrated compressibility without evidence of intraluminal thrombus or increased echogenicity. Spectral analysis of Doppler signals demonstrates normal response to compression maneuvers indicating patency without obstruction. Reflux determinations were made with the patient in the dependent position, the weight being on the contralateral leg. THERE IS DEEP FEMERAL VEIN REFLUX IN THE LT LEG. THERE IS NO SIGNIFICANT REFULX IN RT OF LT GREAT SAPH. CONCLUSIONS No evidence of DVT in the above-mentioned identifiable veins. No significant venous reflux in the above-mentioned veins Dr Kamran Coburn MD [facility] (Electronically Signed) Final Date: 30 January 2020 17:22 S
== END 2020-01-30 10:12 | disposition home or self-care (01) ==
LOC: US 10:12
PROVIDERS: PCP Internal Medicine; Visit Provider Nurse Practitioner Family
DX: M79.604 Pain in right leg (principal); M79.605 Pain in left leg; L53.9 Erythematous condition, unspecified; L97.929 Non-pressure chronic ulcer of unspecified part of left lower leg with unspecified severity; L97.919 Non-pressure chronic ulcer of unspecified part of right lower leg with unspecified severity
CPT/HCPCS: 93970

== ENCOUNTER 2020-02-10 05:54 | Outpatient (RCR) | payer MEDICARE, SELFPAY ==
[2020-02-10 09:41] LABS: Basophils % 0.5 %; Eosinophils # 0.2 10^3/uL (0.0-0.8); Eosinophils % 3.2 %; Hematocrit 37.4 % (37.0-47.0); Hemoglobin 11.7 g/dL (11.5-15.3); Lymphocytes # 1.1 10^3/uL (0.8-4.8); Lymphocytes % 17.8 %; Mean Corpuscular HGB Conc 31.3 g/dL (30.0-36.0); Mean Corpuscular Hemoglobin 30.6 pg (28.0-34.0); Mean Corpuscular Volume 97.9 fL (81-99); Mean Platelet Volume 10.6 fL (7.4-10.4); Monocytes # 0.4 10^3/uL (0.2-0.9); Monocytes % 5.8 %; Neutrophils # 4.36 10^3/uL (1.8-7.7); Neutrophils % 72.4 %; Nucleated Red Blood Cells % 0 %; Platelet Count 144 10^3/cmm (130-400); Red Blood Count 3.82 10^6/uL (4.1-5.3); Red Cell Distribution Width 14.9 % (12.1-15.1)
[2020-02-10 09:50] LABS: Alanine Aminotransferase 33 U/L (0-33); Albumin Level 4.3 g/dL (3.5-5.2); Alkaline Phosphatase 182 IU/L (35-105); Anion Gap 15.2 (5-19); Aspartate Amino Transferase 27 U/L (0-32); Blood Urea Nitrogen 15 mg/dL (8-23); Calcium 10.5 mg/dL (8.5-10.5); Carbon Dioxide 25 mmol/L (22-29); Chloride 105 mmol/L (98-107); Globulin 2.5 g/dL (1.3-4.6); Glomerular Filtration Rate 37.3 mL/min (90-130); Glucose 164 mg/dL (65-115); Osmolality Calculated 292 mOsm/kg (285-295); Potassium 4.2 mmol/L (3.5-5.1); Sodium 141 mmol/L (136-145); Total Bilirubin 0.5 mg/dL (0.15-1.2); Total Protein 6.8 g/dL (6.6-8.7)
[2020-02-10 10:03] LABS: Add Urine Microscopic? YES; Bacteria Urine 2+; Bilirubin Urine Neg (NEGATIVE); Blood Urine Neg (Negative); Glucose Urine UA Norm (Normal); Ketones Urine Negative (Negative); Leukocyte Esterase Urine 2+ (Negative); Mucus Urine TRACE; Nitrate Urine Negative (Negative); Protein Urine Neg (Negative); Specific Gravity, Urine 1.005 (1.005-1.030); Squamous Epithelial Cell Urine 25-40 (0-5); Urine Appearance Cloudy (CLEAR); Urine Color Yellow (Yellow); Urobilinogen Urine Norm (Negative); WBC Urine 55-80 /hpf (0-5)
[2020-02-10 10:04] LABS: Add Urine Culture? No
[2020-02-10 10:35] LABS: Carcinoembryonic Antigen 16.9 ng/mL (0.0-4.7)
--- NOTE | 2020-02-14 21:33 | ONC FU_ITS ---
[facility] Patient Note Patient: Jennifer Worley Unit #: [id number]: 1950 Dictated By: Nash BranhamDate of Visit: Feb 10, 2020 Onc MED Follow-Up/Prog Note Chief Complaint: Colon cancer. 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 She had presented with an abnormal screening colonoscopy. A malignant appearing non-obstructing colonic mass was found at the hepatic flexure. The biopsy was consistent with low-grade, moderately differentiated infiltrating adenocarcinoma. Screening chest x-ray showed mild emphysema. CT of the abdomen/pelvis on 08/05/2015 showed no evidence of distant metastatic disease. The right hepatic colonic neoplasm was seen with an adjacent foci of air consistent with small microperforations which could be related to the recent biopsy during colonoscopy. There was soft tissue prominence in the proximal descending colon and the mild thickening of the duodenum and antrum of the stomach, thought to be gastroenteritis. A small right ovarian dermoid was suspected. Of note, she had a history of duodenitis and pancreatitis in July 2014. Preoperative CEA was not obtained. On 08/06/2015 she underwent an exploratory laparotomy and right hemicolectomy. Her surgical specimen revealed a 6.1 cm adenocarcinoma, focally penetrating through muscularis propria into superficial serosal tissue, with negative margins and positive mild lymphovascular invasion. There was involvement in 3 out of 14 lymph nodes, thus pathologic stage IIIB (T3, N1b, M0). Mismatch repair proteins were proficient. Cycle 1 of adjuvant FOLFOX chemotherapy began on 09/13/2015. Her treatment was complicated by neutropenia, ANC 1300, and platelets 105. In the settings of left arm swelling, on 10/19/2015 ultrasound of the left arm revealed DVT in the left subclavian and jugular vein. The patient began on anticoagulation with apixaban. In the interim her regimen was changed XELOX, cycle 3 on 11/04/2015 and cycle 4 on 11/18/2015. Follow-up ultrasound Doppler of the left arm on 11/23/2015 showed resolution of left arm DVT. During that time she developed severe debilitating left foot pain at the level of metatarsal in the dorsum of the foot and arch. She had no neuropathy in fingers or toes. Her right leg was unaffected. A stress fracture was suspected, but MRI of the left foot just showed osteoarthritis and no acute findings. With the 5th cycle of chemotherapy the treatment was changed back to FOLFOX, but the oxaliplatin was held at that point due to the foot pain. She then continued treatment with infusional 5-FU and leucovorin. She completed 12 cycles of treatment on 03/21/2016. Her other medical illnesses include hypertension, hyperlipidemia, type II diabetes, and depression. She suffered a right hemispheric stroke in 2006. She was treated for pancreatitis in 2014. She had previuosly smoked up to 1 pack of cigarettes daily. She cut down significantly in 2013. She now smokes just very occasionally. INTERIM HISTORY: Surveillance CT scans on 12/21/2016 and on 07/11/2017 showed no evidence of neoplastic process in the chest, abdomen, or pelvis. As of her follow-up visit on 07/12/2017, her CEA has remained stable and she appeared stable clinically. She continued on observation/expectant management. She underwent back surgery in [place] on 01/24/2018. Her surveillance CT scans of the chest, abdomen, and pelvis on 02/22/2018 showed centrilobular emphysematous changes in both lungs but with no evidence of a neoplastic process in the chest. The abdomen/pelvis showed the antrum of the stomach to be overall prominent with heterogeneous wall thickening of uncertain significance. In the right lobe of the liver adjacent to the gallbladder there was abnormal liver parenchyma increase in the prior exam with heterogeneous decreased enhancement suggestive of a metastatic lesion measuring 2.7 cm. An additional focus of abnormal liver parenchyma with heterogeneous decreased enhancement at the level of the falciform ligament involving the adjacent medial and lateral segments of the left lobe measured 3.8 x 4.8 cm. There was no change in the extensive cortical atrophy of the right kidney. She is seen for a scheduled visit. With evidence of limited sites of metastatic involvement in the liver, shows referred to Dr. Pichardo in [place] for consideration of liver directed therapy. His recommendation was to initiate systemic therapy and she then returned and began a trial of chemotherapy with FOLFIRI/Avastin, cycle 1 day 1 on 04/09/2018. She tolerated it with acceptable toxicity, and she was able to continue with cycle 2 on 04/23/2018 and with cycle 3 on 05/14/2018. She was seen for a scheduled visit on 05/27/2018. At that time she was having shortness of breath, cough, and slight hemoptysis. Her CT pulmonary angiogram showed a mild burden of bilateral pulmonary artery nonocclusive emboli. Also noted was lateral middle lobe peripheral pneumonia/pneumonitis, with pulmonary infarction felt to be less likely. She began anticoagulation with apixaban. Her chemotherapy was put on hold. She had follow-up at Dr. Pichardo's office on 06/19/2018. Repeat CT abdomen/pelvis showed interval response to therapy with decrease in the size of to hepatic metastatic lesion, one of which had nearly completely resolved. Also noted was development of a small amount of nonocclusive thrombus within the SMV. Infiltrate in the right middle lobe was thought to reflect a developing resolving pneumonia. She was recommended to continue chemotherapy, and she proceeded with 4th cycle on 07/01/2018. The Avastin was omitted due to the thromboembolism. As of cycle 6 on 08/06/2018 there was a significant decline in her CEA level to 10.2 ng/mL. With cycle 8 on 08/25/2018 it had further declined to 6.3 ng/mL. As of 10/07/2018 she began her 10th cycle of treatment. CEA was down 5.4 ng/mL. She was seen for a scheduled visit on 10/19/2018. Her treatment at that point was delayed due to moderately severe neutropenia, ANC 1400. She was able to continue with cycle 11 chemotherapy on 10/29/2018 with dose reductions in both the 5-FU and the irinotecan. As of 12/24/2018 she began cycle 15 of FOLFIRI. At that point her CEA level was stable at 6.3 ng/mL. Her chemotherapy subsequently was put on hold due to a significant increase in her serum creatinine. She was then given regularly scheduled IV hydration. Her restaging CT scans of the chest, abdomen, and pelvis on 02/05/2019 showed evolving pulmonary infarct versus localized atelectasis or scarring in the right middle lobe. There was decreased size of metastatic left and right lobe liver lesions, though comparison was limited due to lack of IV contrast. There was improvement in the previously noted gastric antral thickening. An enlarged right ovary appeared stable. She was referred to Dr. Pichardo for consideration of liver directed therapy. Continued observation/expectant management was recommended. Restaging PET/CT on 03/29/2019 showed residual left hepatic lobe metastasis measuring 2.4 cm with SUV 5.9 compared to 4.6 x 3.1 cm of SUV 8.3 on the prior study from February 2018. The right hepatic lobe metastasis was noted to be less than 1 cm in size and with FDG uptake barely greater than hepatic background activity. There were no other sites of metastatic disease evident on that study. At that point she remained off chemotherapy, and she continued follow-up with Dr. Pichardo. Restaging CT scans of the chest, abdomen, and pelvis on 05/26/2019 showed development of new bilateral pulmonary nodules which were worrisome for pulmonary metastatic disease, and 1 of the 2 hepatic lesions was not noted to be slightly larger by a few millimeters. With those findings, she was scheduled to return here for further chemotherapy, and she then continued treatment with cycle 16 of FOLFIRI/Avastin on 06/04/2019. At that point her CEA level had increased to 65 ng/mL. She then continued treatment at 2-week intervals. As of 07/22/2019 she began her 19th cycle. Her CEA had declined to 23.6 ng/mL. She continued with cycle 20 on 08/05/2019. As of her visit on 08/20/2019 her treatment was put on hold due to weakness and declining performance status. Her CEA had further declined to 19.1 ng/mL. She then returned and was able to restart treatment with cycle 21 of FOLFIRI/Avastin on 09/03/2019. She tolerated it well. Her further treatments were then administered with her cycle adjusted to a 3-week interval. As of 10/14/2019 her CEA had stabilized at 17.0 ng/mL. She then continued treatment at 3-week intervals. At her visit in October 2019 she had become aware of subcutaneous nodules in the abdominal wall on the right side. Restaging CT scans on 11/11/2019 showed continued decrease in the size of known pulmonary metastases, the largest measuring 5 mm. Mediastinal and hilar nodes were noted to be subcentimeter. An hepatic metastatic lesion along the falciform ligament was noted to have decreased. There were no new metastatic sites identified. Soft tissue thickening along the supraumbilical anterior abdominal wall to the right of the midline was new from September 2018 and increased compared to the PET/CT from March 2019, but unchanged from the CT in May 2019. On 12/10/2019 she underwent core needle biopsy of one of the abdominal wall nodules. Pathology was nondiagnostic. The report indicated that there was very little material present for evaluation. It was mostly fibrous tissue. There were rare glands present, some with hyperchromatism, but not sufficient enough for a definitive diagnosis. She remains on FOLFIRI/Avastin. Ms Worley had hernia repair and abdominal wall mass removal per Dr Pichardo on 01/16/2020. Her treatment was delayed from December 30, 2019 due to her recent abdominal wall surgery. We requested records and Dr. Pichardo's office regarding recent follow-up. The pathology from 01/16/2020 from the abdominal wall mass reports metastatic colorectal adenocarcinoma. The mismatch repair analysis (IHC) interpretation was no loss of nuclear expression of MMR proteins low probability of MSI-H. MLH1 ???M 1 clone was intact; MSH2???Clone [id number] was intact; MSH6 clone [id number] was intact; PMS 2 clone [id number] was also intact. Ms. Worley indicates that Dr. Pichardo indicated to her at her recent visit that he thought that Dr. Multani may add another chemo or another drug to her treatment plan or change her treatment plan based on the pathology reports. We do not have any current records from their office. She reports that overall she is feeling good. Her abdominal pain is getting better from surgery. She is eating good and is trying to be somewhat active. She continues to have lower extremity wounds but states they are overall much better. She did have a bilateral duplex venous insufficiency study on 01/30/2020 reported there is deep femoral vein reflux in the left leg no significant reflux in the right. There is no evidence of DVT. She continues to follow with 1 clinic. She has no concerns today other than whether or not we are going to change her treatment. Her ECOG is 1. Past Medical History: Depression Diabetes type II Hyperlipidemia Hypertension Pancreatitis in 2015 Stroke in 2007 Past Surgical History: Appendectomy Bilateral carpal tunnel Cyst removal. right wrist and left hand Hernia repair Left elbow repair Mass removed from abdominal wall Right oophorectomy Right rotator cuff repair x2 Right salpingectomy Tonsillectomy - AND ADENOIDS Flu vac in 2019 Prevnar 13 in 2019 Influeza vaccine in [address] pichardo in 2018 Right internal juglar Power Port-Dr Gary Pichardo ([place]) in 2018 Back surgery in 2018 Left sided port removal in 2017 Flu Vaccine in 2016 Left subclavian venous access device-Dr Wilcox in 2016 Bilateral eardrums patched in 1965 Allergies: No Known Allergies. Medications: Cyclobenzaprine HCl 1 Tablet (of 10 mg) Oral t.i.d. PRN Diclofenac Sodium 1 Tablet (of 75 mg) Tablet, enteric coated Oral b.i.d. PRN Eliquis 1 Tablet (of 5 mg) Oral b.i.d. Gabapentin 1 Tablet (of 300 mg) Oral t.i.d. Labetalol HCl 1 (300 mg) Tablet Oral b.i.d. Lisinopril 1 (20 mg) Tablet Oral daily MetFORMIN HCl 2 (500 mg) Tablet Oral daily ProAir HFA Aerosol, solution Inhalation PRN Protonix 1 Tablet (of 40 mg) Tablet, enteric coated Oral daily rOPINIRole HCl 1 Tablet (of 0.25 mg) Oral b.i.d. Family History: Ms. Worley's mother is alive: diabetes, dementia, hypertension, high cholesterol. Ms. Worley's father is alive: prostate cancer, diabetes, hypertension, high cholesterol. Ms. Worley has 1 brother who is alive: diabetes, high cholesterol. Social History: Ms. Worley is and she is a disabled. She is an occasional smoker who smokes 0.5 packs/day. She drinks occasionally. Ms. Worley reports the following support systems: lives in own house and supportive family/friends willing to assist with needs. Her diet consists of regular meals. She indicates her activity level as: occasional exercise. Review Of Symptoms: Constitutional Denies fevers, chills, night sweats, or weight loss. She has been active at home. She tires easily but recovers with rest. Allergic/Immunologic No reactions. Eyes Denies significant visual changes. No diplopia. No amaurosis. ENMT Denies changes in hearing, sore throat, mouth sores, difficulty or changes in swallowing ability, and/or sinus drainage. Endocrine No thyroid disease or hormone replacement. Denies hot flashes or night sweats. Is diabetic. Hematologic/Lymphatic Denies easy bruising or bleeding. The patient denies any tender or palpable lymph nodes. Respiratory Denies dyspnea on exertion, chest pain, or hemoptysis. Denies orthopnea. Cardiovascular Denies anginal chest pain, palpitations or orthopnea. Gastrointestinal Denies nausea, vomiting, GI bleeding, or constipation. Denies change in bowel habits and/or stool color, no heartburn or early satiety. Genitourinary (F) No hematuria, hesitancy, incontinence, vaginal bleeding, discharge or other problems with urination. Musculoskeletal Denies swelling or redness. No decreased range of motion. States intermittent hip and knee pain-chronic and controlled. Some knuckle swelling from arthritis. Integumentary Denies chronic rashes, inflammation, ulcerations or skin changes. Neurologic Denies headache, blurred vision, and no areas of focal weakness or numbness. No sensory problems. Psychiatric Denies insomnia, depression, emma or mood swings. Vital Signs: Performed on Feb 10, 2020 10:33 Height - 64.00 in Weight - 155.4 lbs (LOW) BSA - 1.76 sq.m BMI - 26.67 Temperature - 98.4 F Pulse - 79 /min Respiration - 19 /min BP - 156/84 mm(hg) (HIGH) O2 Sat - 98 % Pain - 0,1 - No physically strenuous activity, but ambulatory and able to carry out light or sedentary work (e.g. office work, light house work). (ECOG) Physical Examination: Constitutional Alert, oriented, no acute distress. Skin pink, warm and dry. Head Normocephalic; atraumatic. Eyes Conjunctivae and sclerae are clear and without icterus. Pupils are reactive and equal. Neck Supple without masses or thyromegaly. No jugular venous distension. Hematologic/Lymphatic No petechiae or purpura. No tender or palpable lymph nodes in the cervical, supraclavicular area. Respiratory Lungs are clear to auscultation without rhonchi or wheezing. Cardiovascular Regular rate and rhythm of heart without murmurs,clicks, gallops or rubs. Chest Right venous access device is unremarkable. Back/Spine Non-tender to palpation. Extremities No visible deformities, no cyanosis, clubbing or edema. Musculoskeletal No tenderness or swelling, normal range of motion without obvious weakness. Integumentary No rashes or lesions. Neurologic No sensory or motor deficits, normal cerebellar function, normal gait-for her. Psychiatric Alert and oriented times three. Coherent speech. Verbalizes understanding of our discussions today. Laboratory:Test performed on Feb 10, 2020 09:10 Sodium 141 mmol/L Potassium 4.2 mmol/L Chloride 105 mmol/L CO2 25 mmol/L Anion Gap 15.2 BUN 15 mg/dL Creatinine 1.4 mg/dL Cr Clearance (Est) 42.2600 mL/min eGFR 37.3 mL/min Glucose 164 mg/dL Calcium 10.5 mg/dL Protein, Total 6.8 g/dL Albumin 4.3 g/dL Globulin 2.5 g/dL Bilirubin, Total 0.5 mg/dL ALT (SGPT) 33 U/L AST (SGOT) 27 U/L Alkaline Phosphatase 182 IU/L WBC 6.0 10 3/uL RBC 3.82 10 6/uL HGB 11.7 g/dL HCT 37.4 % MCV 97.9 fL MCH 30.6 pg MCHC 31.3 g/dL RDW 14.9 % Platelet Count 144 10 3/cmm MPV 10.6 fL Neutrophils 4.36 10 3/uL Lymphocytes 1.1 10 3/uL Monocytes 0.4 10 3/uL Eosinophils 0.2 10 3/uL Basophils 0.0 10 3/uL Neutrophil % 72.4 % Lymphocyte % 17.8 % Monocyte % 5.8 % Eosinophil % 3.2 % Basophils % 0.5 % NRBC % 0 % Ua Micro: WBC 55-80 /hpf Ua Micro: RBC 5-10 /hpf Ua Micro: Squam Epith Cells 25-40 CULTURE NOT INDICATED DUE TO >10 EPITHELIAL CELLS PRESENT ON MICROSCOPIC EXAM. POSSIBLE SPECIMEN CONTAMINATION. Ua Micro: Bacteria 2+ Ua Micro: Mucous TRACE CEA 16.9 ng/mL Test performed on Nov 25, 2019 00:00 Magnesium 1.7 mg/dL Impression: 1. 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 Her tumor was found to be MSI stable and to harbor a KRAS mutation (12ASP). 2. She underwent right hemicolectomy on 08/06/2015 and she began adjuvant chemotherapy with modified FOLFOX in August 2015. Her treatment was complicated by port associated deep vein thrombosis and by peripheral neuropathy. Oxaliplatin was held after 4 cycles. She ultimately completed 12 cycles of treatment in March 2016. 3. In February 2018 there was a very significant increase in her CEA level and her surveillance CT scans showed 2 hepatic lesions which were consistent with metastases, one in the right lobe measuring 2.7 cm and one in the left lobe measuring 3.8 x 4.8 cm. As such, her disease at that point was stage IV (M1a). Her other medical illnesses include: 4. Hypertension. 5. Hyperlipidemia. 6. Type II diabetes. 7. Depression. 8. She has a history of pancreatitis in July 2014. 9. She has history of stroke in 2006. She was referred to Dr. Pichardo for consideration of liver directed therapy. He recommended that she first have a trial of chemotherapy. She returned here and began a course of treatment with FOLFIRI/Avastin, cycle 1 day 1 on 04/09/2018. She continued with cycle 2 on 04/23/2018 and was cycle 3 on 05/14/2018. On 05/27/2018 she presented with shortness of breath, cough, and slight hemoptysis. Her CT pulmonary angiogram showed mild burden of bilateral pulmonary artery nonocclusive emboli. There was also suspected right middle lobe pneumonia/pneumonitis, with pulmonary infarction felt to be less likely. She began anticoagulation with apixaban. Her chemotherapy has remain on hold, but she did appear to have response by CEA level and by follow-up CT scan. She continued with cycle 4 of chemotherapy on 07/01/2018, but with omission of Avastin due to the thromboembolism. She had subsequently continued treatment at 2-week intervals. As of 10/07/2018 she began her 10th cycle of treatment. CEA at that point was down to 5.4 ng/mL. Her cycle 11 treatment was delayed one week due to moderately severe neutropenia, ANC 1400. She was then able to continue treatment with dose reductions in both the 5-FU and irinotecan. As of 12/24/2018 she began cycle 15 of FOLFIRI chemotherapy. Her CEA at that point was stable at 6.3 ng/mL. Her treatment subsequently was put on hold due to a significant increase in her serum creatinine. Restaging CT scans on 02/05/2019 showed residual metastatic lesions in the left and right lobe of the liver, decreased compared to the previous study from July 2018. There were no other obvious areas of metastatic disease. She was referred to Dr. Pichardo for consideration of liver directed therapy. Continued observation/expectant management was recommended. During follow-up she has had some improvement in her performance status since stopping the chemotherapy. Her restaging PET/CT from 03/29/2019 showed residual but improved hepatic metastatic lesions compared to the study from February 2018. However, restaging CT scans on 05/26/2019 showed disease progression with development of new pulmonary metastatic disease bilaterally. There was slight enlargement of 1 of the hepatic lesions. There also was a significant increase in her CEA level. She then restarted chemotherapy with cycle 16 of FOLFIRI/Avastin on 06/04/2019. She tolerated it without acute toxicity. She was then able to continue treatment at 2-week intervals. As of 07/22/2019 she began cycle 19. At that point her CEA level had decreased significantly, to 23.6 ng/mL. She continued with cycle 20 on 08/05/2019. As of her follow-up visit on 08/20/2019 her treatment was put on hold due to weakness and declining performance status. She returned on 09/03/2019 and she was then able to continue with cycle 21 of FOLFIRI/Avastin. She then continued treatment with her cycles adjusted to a 3-week interval, which she seemed to tolerate well. As of 10/14/2019 she began her 23rd cycle. At that point her CEA had stabilized in the range of 16 to 17 ng/mL. At her followup visit on 11/05/2019 she had become aware of some small nodules in the right upper quadrant abdominal wall. Her restaging CT scans showed improvement in the metastatic lesions in the lung and liver. The abdominal wall nodules appeared stable compared to a May [address] CT scan, but progressed compared to an September 2018 CT and in March 2019 PET/CT. Core needle biopsy of an abdominal wall nodule on 12/10/2019 showed nondiagnostic pathology. Ms Worley had hernia repair and abdominal wall mass removal by Dr Pichardo in [place], [place] on 01/16/2020. Her treatment was delayed for 2 weeks while she heals and to avoid potential complications of delayed wound healing. We will now plan to restage her and request Next Gene Sequencing. Plan: 1. Delay cycle 28 of FOLFIRI/Avastin due to recent hernia repair and abdominal wall mass removal per Dr Pichardo on January 16, 2020. Will request PET/CT followup and Next Gene Sequencing on patholoogy from recent abdominal wall lesion from 01/16/2020. 2. Continue current medications otherwise. 3. Today's labs were reviewed in detail and discussed with Ms. Worley and a copy was given to her white count 6.0 hemoglobin 11.7 platelets 244,000 ANC is 4400. Creatinine 1.4 which is improved from 1.6. Random glucose 164 LFTs are normal alk phos is 182 CEA is noted to be 16.7. It was 12.7 on her January 27, 2020 visit. She did not have any protein in her urine. 4. We will plan to see her back in 3 weeks with CBC, CMP and CEA, PET/CT and hopefully her NGS results will be resulted. 5. Encouraged to continue care with wound clinic, she states her left leg has almost healed completely and the right one is improving. 6. Ms Worley was encouraged to call in the interim if questions or problem arise. 7. We will contact Dr. Pichardo's office once again for requested records. 8. She is requesting a refill of her Eliquis and her pain medication. Her pain medication refill was sent to her mail-in pharmacy and written prescription for her pain medicine was provided per Dr. Multani. Signed By: Nash Branham-, AOCNP Gary Multani MD <<Signature on File>>
== END 2020-02-16 23:59 | disposition home or self-care (01) ==
LOC: ONCMED 05:54
PROVIDERS: Internal Medicine Medical Oncology; PCP Internal Medicine; Visit Provider Nurse Practitioner
DX: C18.4 Malignant neoplasm of transverse colon (principal); C78.01 Secondary malignant neoplasm of right lung; C78.02 Secondary malignant neoplasm of left lung; C78.7 Secondary malignant neoplasm of liver and intrahepatic bile duct; I10 Essential (primary) hypertension; I87.2 Venous insufficiency (chronic) (peripheral); E78.5 Hyperlipidemia, unspecified; E11.9 Type 2 diabetes mellitus without complications; F32.9 Major depressive disorder, single episode, unspecified; F17.210 Nicotine dependence, cigarettes, uncomplicated; Z90.49 Acquired absence of other specified parts of digestive tract; Z86.73 Personal history of transient ischemic attack (TIA), and cerebral infarction without residual deficits; Z98.890 Other specified postprocedural states; Z86.718 Personal history of other venous thrombosis and embolism; Z79.01 Long term (current) use of anticoagulants; Z79.899 Other long term (current) drug therapy
CPT/HCPCS: 36591; 80053; 81001; 82378; 85025; 99214

== ENCOUNTER 2020-02-12 10:56 | Outpatient (CLI) | payer MEDICARE, SELFPAY | END 2020-02-12 10:57 | disposition home or self-care (01) | LOC: WOUND 10:57 | PROVIDERS: PCP Internal Medicine; Visit Provider Emergency Medicine | DX: E11.622 Type 2 diabetes mellitus with other skin ulcer (principal); L97.812 Non-pressure chronic ulcer of other part of right lower leg with fat layer exposed; L97.822 Non-pressure chronic ulcer of other part of left lower leg with fat layer exposed | CPT/HCPCS: 11042 ==

== ENCOUNTER 2020-02-19 10:51 | Outpatient (CLI) | payer MEDICARE, SELFPAY | END 2020-02-19 10:52 | disposition home or self-care (01) | LOC: WOUND 10:51 | PROVIDERS: PCP Internal Medicine; Visit Provider Emergency Medicine | DX: E11.622 Type 2 diabetes mellitus with other skin ulcer (principal); L97.812 Non-pressure chronic ulcer of other part of right lower leg with fat layer exposed; L97.822 Non-pressure chronic ulcer of other part of left lower leg with fat layer exposed | CPT/HCPCS: 11042 ==

== ENCOUNTER 2020-02-26 14:41 | Outpatient (CLI) | payer MEDICARE, SELFPAY | END 2020-02-26 14:42 | disposition home or self-care (01) | LOC: WOUND 14:42 | PROVIDERS: PCP Internal Medicine; Visit Provider Emergency Medicine | DX: E11.622 Type 2 diabetes mellitus with other skin ulcer (principal); L97.512 Non-pressure chronic ulcer of other part of right foot with fat layer exposed; L97.522 Non-pressure chronic ulcer of other part of left foot with fat layer exposed | CPT/HCPCS: 11042 ==

== ENCOUNTER 2020-02-27 13:06 | Emergency (ER) | payer MEDICARE, SELFPAY ==
[2020-02-27 13:13] VITALS: BP 175/96; PULSE 79; RESP 16; TEMP 36.8; O2SAT 98; BMI 27.1
--- NOTE | 2020-02-27 13:36 | US_ITS ---
WS: [id number] Gallbladder ultrasound, 02/27/2020 Clinical Data: elevated LFTs, jaundice Comparison: Gallbladder ultrasound, 07/24/2014. Findings: The gallbladder shows no sludge or stone. The wall measures 0.4 cm with no pericholecystic fluid. The common bile duct is 0.8 cm and there are no intrahepatic ductal abnormalities. Liver shows increased density but no cysts, masses or dilated intrahepatic ducts. It measures 11.39 cm. The pancreas is not obscured by overlying bowel gas and no cyst, pseudocyst, or evidence of pancreati tis is noted. Right kidney is not seen The aorta and inferior vena cava show no vascular abnormalities. US/US gall bladder [id number] Impression: 1. Thickened gallbladder wall which can be seen with acute and/or chronic ryan cystitis. 2. Negative for gallstones. 3. Increased size of common bile duct but no intraductal abnormalities are seen . 4. Dense liver. 5. No imaging of the kidney in the right renal fossa.
--- NOTE | 2020-02-27 13:40 | ED_ITS ---
HPI - General Adult General: Chief complaint: General Medical Stated complaint: possible bowel blockage/sent by dr hoffmann Time Seen by Provider: 02/27/20 13:30 History of Present Illness: HPI narrative: 69-year-old female presents the emergency room by referral from Dr. Hoffmann's office at oncology. She has a known colon cancer with metastasis to the lung and liver. She was seen at wound care was noted to be significantly jaundiced. Her T bili was 8.5 with marked elevation of her AST's and alk phos. Dr. Hoffmann did not feel the liver mets would be consistent with that kind of elevation and total bilirubins were referred to the emergency room for evaluation for obstruction of the common bile duct. She is generally not felt well and been nauseous she has not had any vomiting not had any acholic stools has had a lot of bloating-like sensation she refers to some pain in the left lower quadrant which has been increased for the last week she does has had some loose stools but those of already resolved she denies any hematochezia. She previously has had a resection of her colon for colon cancer Onset (ago): day(s) Location: abdomen Severity: moderate Quality: aching, dull and constant Pain Consistency: constant Relieving factors: none Exacerbating factors: none Associated symptoms: Reports decreased appetite, malaise, nausea and rash; Deny chest pain, confusion, cough, diaphoresis, dyspnea, fevers/chills, headache(s), palpitations, seizures, short of breath, syncope, vomiting or weakness Treatments prior to arrival: none Review of Systems Const: Reports: malaise; Denies: diaphoresis ENMT: Denies: throat pain, ear or mastoid pain, nasal discharge or nasal congestion Card: Denies: chest pain, palpitations or syncope Resp: Denies: dyspnea GI: Reports: nausea; Denies: vomiting : Denies: flank pain, difficulty voiding, dysuria, urinary frequency or urinary urgency Skin/Breast: Reports: rash Neuro: Denies: headache(s) or confusion PFSH ED PFSH: Medical History (Updated 02/27/20 @ 18:15 by Rome Landers DO) Colon cancer metastasized to multiple sites Surgical History (Updated 02/27/20 @ 13:56 by Rome Landers DO) S/P colon resection Social History (Updated 02/27/20 @ 13:20 by Yeimi Velarde RN) Smoking and tobacco status: current every day smoker Alcohol intake: never Physical Exam Const: COMMON NORMALS: no acute distress GENERAL APPEARANCE: cooperative and comfortable ORIENTATION/CONSCIOUSNESS: Yes awake, Yes oriented to person, Yes oriented to place and Yes oriented to time HENMT: COMMON NORMALS: normocephalic, atraumatic and hearing grossly normal bilaterally HEAD & SCALP: normocephalic and atraumatic Eye: COMMON NORMALS: Equal, round and reactive pupils present, EOMs intact bilaterally, conjunctivae normal and no scleral icterus CONJUNCTIVA: Yes conjunctivae normal SCLERA: scleral abnormal (Jaundice) PUPIL: Yes Equal, round and reactive pupils present Neck/C-Spine: COMMON NORMALS: full ROM, no lymphadenopathy, supple and no JVD Lymph: LYMPHATIC: no lymphadenopathy noted and no lymphedema noted Resp: COMMON NORMALS: normal respiratory effort, No retractions, No use of accessory muscles and clear to auscultation bilaterally AUSCULTATION: clear to auscultation bilaterally Cardio: COMMON NORMALS: no JVD, regular rate, regular rhythm and No murmurs present (Cardio) RATE: regular rate RHYTHM: regular rhythm GI: COMMON NORMALS: Soft to palpation and No hepatosplenomegaly present AUSCULTATION: Yes normoactive bowel sounds PALPATION: Yes Soft to palpation, No Tenderness to palpation present (GI), No Guarding due to palpation present (GI) and Yes No hepatosplenomegaly present Extremity: COMMON NORMALS: normal to inspection, capillary refill normal, no clubbing, cyanosis or edema, no calf tenderness and no pedal edema Neuro: SENSORIUM/ORIENTATION: Yes oriented to person, Yes oriented to place and Yes oriented to time Skin: COMMON NORMALS: no rashes or lesions noted GENERAL SKIN EXAM: no rashes or lesions noted Course Vital Signs: Vital signs: Vital Signs Temperature 98.3 F 02/27/20 13:13 Pulse Rate 76 02/27/20 19:04 Respiratory Rate 17 02/27/20 19:04 Blood Pressure 199/123 02/27/20 19:04 Pulse Oximetry 98 02/27/20 19:04 MDM - General Adult MDM Narrative: Medical decision making narrative: Evaluation in the emergency room shows acute urinary retention for which a Beck catheter was placed. On the gallbladder ultrasound there is dilation of the hepatic ducts but not of the common bile duct. At this point there is no indication for any intervention would recommend that she follow-up with Dr. Hoffmann early next week. Dr. Hoffmann had been to the department and discussed the patient with me and was unable to contact him and left a voicemail message regarding the results and instructions were given the patient. Discharge Plan Discharge Patient Disposition: Home Clinical Impression: Hyperbilirubinemia, Acute urinary retention Condition: Stable Prescriptions: No Action cyclobenzaprine 10 mg tablet 10 mg PO TID RF: 0 lisinopril 20 mg tablet 20 mg PO DAILY RF: 0 oxycodone-acetaminophen 5-325 mg tablet 1 tab PO Q6H PRN (Reason: Pain) RF: 0 ropinirole 0.25 mg tablet 0.25 mg PO BID RF: 0 pantoprazole 40 mg tablet,delayed release (DR/EC) 40 mg PO DAILY RF: 0 gabapentin 300 mg capsule 300 mg PO TID RF: 0 diclofenac sodium 75 mg tablet,delayed release (DR/EC) 75 mg PO BID RF: 0 labetalol 300 mg tablet 300 mg PO BID RF: 0 albuterol sulfate 90 mcg/actuation HFA aerosol inhaler 1 puff INHALATION Q6H PRN (Reason: Shortness Of Breath) RF: 0 metformin 500 mg tablet extended release 24 hr 1,000 mg PO BEDTIME RF: 0 Eliquis 5 mg tablet 5 mg PO BID RF: 0 Discharge Orders: Discharge Order (Routine); Ordered 02/27/20 Ordered By: Rome Landers Referrals: Gary Hoffmann MD [Hospitalist] - Discharge Diet: Advance as tolerated Discharge Activity: Increase activity as tolerated Discharge Date/Time: 02/27/20 19:06 Coding Level of Care Code ED Cable Installation Technician for Chg Fwd Exam Comprehensive
--- NOTE | 2020-02-27 14:28 | CTR_ITS ---
PROCEDURE INFORMATION: Exam: CT Abdomen And Pelvis With Contrast Exam date and time: 02/27/2020 4:17 PM Age: 69 years old Clinical indication: Abdominal pain; Localized; Left lower quadrant (llq); Prior surgery; Surgery date: 6+ months; Surgery type: Colon, R kidney, hyst, appy; Patient HX: HX of colon CA w liver and lung mets C/O llq abd pain w loose stool and jaundice TECHNIQUE: Imaging protocol: Computed tomography of the abdomen and pelvis with intravenous contrast. Radiation optimization: All CT scans at this facility use at least one of these dose optimization techniques: automated exposure control; mA and/or kV adjustment per patient size (includes targeted exams where dose is matched to clinical indication); or iterative reconstruction. Contrast material: VISI 320; Contrast volume: 95 ml; Contrast route: INTRAVENOUS (IV); COMPARISON: CT chest abd pel w con* 11/11/2019 1:29 PM RADIATION DOSE METRICS: Total DLP (mGy-cm): 582.72 FINDINGS: Lungs: There is patchy airspace opacity in the right middle lobe concerning for small atelectasis versus pneumonitis. Previous scarring in the right middle lobe and lingula are also unchanged. There is a 9 mm ground-glass nodule left lower lobe that previously measured 6 mm. There is a densely calcified granuloma right lower lobe that is unchanged. Mediastinal space: A small hiatal hernia is present. Liver: There is and unchanged hypodense nodule in the liver adjacent to the ligamentum teres image 18 measuring 2.2 by 2.5 cm in size. No new or enlarging liver nodule. Gallbladder and bile ducts: There has been a cholecystectomy. There is moderate to severe intrahepatic biliary duct dilatation. No dilatation of the common bile duct. Pancreas: Normal. No ductal dilation. Spleen: Normal. No splenomegaly. Adrenals: Normal. No mass. Kidneys and ureters: There is unchanged atrophy of the right kidney. There is bilateral increased moderate hydronephrosis with abrupt caliber changes at the ureteral pelvic junction some and no obstructing calculus. This may reflect chronic UPJ narrowing. Stomach and bowel: Moderate diverticulosis is present in the distal colon. Postoperative changes of a right hemicolectomy are noted.There is excessive colonic stool content. There is a segment of wall thickening of the distal descending/sigmoid colon with mild haziness of the adjacent fat concerning for mild colitis. There is no evidence of intestinal perforation or obstruction. There is increased wall thickening with haziness of the adjacent fat involving the distal stomach/duodenal bulb concerning for ulcer with reactive edema versus duodenitis. Appendix: No evidence of appendicitis. Intraperitoneal space: Unremarkable. No free air. No significant fluid collection. Vasculature: The aorta demonstrates moderate atherosclerotic calcification. Lymph nodes: Unremarkable.No enlarged lymph nodes. Bladder: There is nonspecific bladder wall thickening. This may be related to incomplete distention. Reproductive: Unremarkable as visualized. Bones/joints: There is osteopenia. Severe facet degenerative changes are noted. No acute fracture or bony destruction. Soft tissues: Unremarkable. CT/CT abdomen pelvis w con* [id number] IMPRESSION: 1. There is patchy airspace opacity in the right middle lobe concerning for small atelectasis versus pneumonitis. Previous scarring in the right middle lobe and lingula are also unchanged. 2. There is a 9 mm ground-glass nodule left lower lobe that previously measured 6 mm. This is concerning for progressive metastatic disease.Fleischner follow up recommendations for incidental nodules are not indicated. Follow up per patient's medical condition. 3. There is a segment of wall thickening of the distal descending/sigmoid colon with mild haziness of the adjacent fat concerning for mild colitis. No abscess or free air. 4. There is increased wall thickening with haziness of the adjacent fat involving the distal stomach/duodenal bulb concerning for ulcer with reactive edema versus duodenitis. 5. Marked increase in intrahepatic biliary duct dilatation without dilated common bile duct. Unchanged hypodense nodule in the liver. 6. More dilatation of the renal pelves/hydronephrosis without obstructing calculus. Bilateral kidneys have abrupt caliber change at the UPJ junction suggesting chronic UPJ narrowing. Radiation Dose CTDIVOL = (mGy): DLP = 582.72 (mGy-cm)
[2020-02-27] MEDS: sodium chloride 0.9% 1,000 ML 999 ML IV ×2 (15:38→16:40)
[2020-02-27] MEDS: iodixanol 320 mg/mL 100mL Btl IV (17:29)
[2020-02-27 19:04] VITALS: BP 199/123; PULSE 76; RESP 17; O2SAT 98
== END 2020-02-27 19:06 | disposition home or self-care (01) ==
PROVIDERS: Emergency Provider Family Medicine; PCP Internal Medicine
DX: E80.6 Other disorders of bilirubin metabolism (principal); R33.9 Retention of urine, unspecified; Z79.01 Long term (current) use of anticoagulants; Z85.038 Personal history of other malignant neoplasm of large intestine; Z90.49 Acquired absence of other specified parts of digestive tract; F17.210 Nicotine dependence, cigarettes, uncomplicated
CPT/HCPCS: 12345; 51702; 74177; 76705; 96360; 96361; 99282; 99283; J7030; Q9967

== ENCOUNTER 2020-03-10 11:38 | Outpatient (RCR) | payer MEDICARE, SELFPAY ==
[2020-02-27] MEDS: sodium chloride 0.9% 1,000 ML 999 ML IV (09:30)
[2020-02-27 10:00] LABS: Basophils % 0.4 %; Eosinophils # 0.2 10^3/uL (0.0-0.8); Eosinophils % 3.8 %; Hematocrit 33.2 % (37.0-47.0); Hemoglobin 10.7 g/dL (11.5-15.3); Lymphocytes # 1.2 10^3/uL (0.8-4.8); Lymphocytes % 25.5 %; Mean Corpuscular HGB Conc 32.2 g/dL (30.0-36.0); Mean Corpuscular Hemoglobin 29.9 pg (28.0-34.0); Mean Corpuscular Volume 92.7 fL (81-99); Mean Platelet Volume 12.7 fL (7.4-10.4); Monocytes # 0.3 10^3/uL (0.2-0.9); Monocytes % 7.1 %; Neutrophils # 3.02 10^3/uL (1.8-7.7); Nucleated Red Blood Cells % 0 %; Platelet Count 112 10^3/cmm (130-400); Red Blood Count 3.58 10^6/uL (4.1-5.3); Red Cell Distribution Width 17.2 % (12.1-15.1); White Blood Count 4.8 10^3/uL (4.0-10.0)
[2020-02-27 10:22] LABS: Alanine Aminotransferase 230 U/L (0-33); Albumin Level 3.7 g/dL (3.5-5.2); Alkaline Phosphatase 498 IU/L (35-105); Anion Gap 16.8 (5-19); Aspartate Amino Transferase 158 U/L (0-32); Blood Urea Nitrogen 23 mg/dL (8-23); Calcium 10.5 mg/dL (8.5-10.5); Carbon Dioxide 19 mmol/L (22-29); Chloride 105 mmol/L (98-107); Globulin 2.9 g/dL (1.3-4.6); Glucose 139 mg/dL (65-115); Osmolality Calculated 283 mOsm/kg (285-295); Potassium 3.8 mmol/L (3.5-5.1); Sodium 137 mmol/L (136-145); Total Protein 6.6 g/dL (6.6-8.7)
[2020-02-27 10:53] LABS: Total Bilirubin 8.5 mg/dL (0.15-1.2)
[2020-03-01] MEDS: sodium chloride 0.9% 1,000 ML 999 ML IV ×2 (14:20)
[2020-03-01 14:36] LABS: Basophils % 0.2 %; Eosinophils # 0.2 10^3/uL (0.0-0.8); Eosinophils % 3.6 %; Hemoglobin 9.6 g/dL (11.5-15.3); Lymphocytes % 22.9 %; Mean Corpuscular HGB Conc 33.1 g/dL (30.0-36.0); Mean Corpuscular Hemoglobin 30.4 pg (28.0-34.0); Mean Corpuscular Volume 91.8 fL (81-99); Mean Platelet Volume 13.6 fL (7.4-10.4); Monocytes # 0.3 10^3/uL (0.2-0.9); Monocytes % 7.7 %; Neutrophils # 2.69 10^3/uL (1.8-7.7); Neutrophils % 65.1 %; Nucleated Red Blood Cells % 0 %; Platelet Count 111 10^3/cmm (130-400); Red Blood Count 3.16 10^6/uL (4.1-5.3); White Blood Count 4.1 10^3/uL (4.0-10.0)
[2020-03-01 15:05] LABS: Alanine Aminotransferase 165 U/L (0-33); Albumin Level 3.7 g/dL (3.5-5.2); Alkaline Phosphatase 403 IU/L (35-105); Anion Gap 16.6 (5-19); Aspartate Amino Transferase 130 U/L (0-32); Blood Urea Nitrogen 22 mg/dL (8-23); Calcium 9.2 mg/dL (8.5-10.5); Carbon Dioxide 19 mmol/L (22-29); Chloride 106 mmol/L (98-107); Globulin 2.5 g/dL (1.3-4.6); Glomerular Filtration Rate 44.5 mL/min (90-130); Glucose 84 mg/dL (65-115); Osmolality Calculated 282 mOsm/kg (285-295); Potassium 3.6 mmol/L (3.5-5.1); Slide Review Slide Review Perform; Sodium 138 mmol/L (136-145); Total Protein 6.2 g/dL (6.6-8.7)
[2020-03-01 15:13] LABS: Total Bilirubin 10.5 mg/dL (0.15-1.2)
--- NOTE | 2020-03-02 07:24 | ONC FU_ITS ---
Dr. Multani Patient Follow-Up Note Patient: Jennifer Worley Unit #: [id number]: 1950 Dicatated By: Gary Multani M.D.Date of Visit:Mar 01, 2020 Onc Med Follow-up/Prog Note Chief Complaint: Colon cancer. 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 She had presented with an abnormal screening colonoscopy. A malignant appearing non-obstructing colonic mass was found at the hepatic flexure. The biopsy was consistent with low-grade, moderately differentiated infiltrating adenocarcinoma. Screening chest x-ray showed mild emphysema. CT of the abdomen/pelvis on 08/05/2015 showed no evidence of distant metastatic disease. The right hepatic colonic neoplasm was seen with an adjacent foci of air consistent with small microperforations which could be related to the recent biopsy during colonoscopy. There was soft tissue prominence in the proximal descending colon and the mild thickening of the duodenum and antrum of the stomach, thought to be gastroenteritis. A small right ovarian dermoid was suspected. Of note, she had a history of duodenitis and pancreatitis in July 2014. Preoperative CEA was not obtained. On 08/06/2015 she underwent an exploratory laparotomy and right hemicolectomy. Her surgical specimen revealed a 6.1 cm adenocarcinoma, focally penetrating through muscularis propria into superficial serosal tissue, with negative margins and positive mild lymphovascular invasion. There was involvement in 3 out of 14 lymph nodes, thus pathologic stage IIIB (T3, N1b, M0). Mismatch repair proteins were proficient. Cycle 1 of adjuvant FOLFOX chemotherapy began on 09/13/2015. Her treatment was complicated by neutropenia, ANC 1300, and platelets 105. In the settings of left arm swelling, on 10/19/2015 ultrasound of the left arm revealed DVT in the left subclavian and jugular vein. The patient began on anticoagulation with apixaban. In the interim her regimen was changed XELOX, cycle 3 on 11/04/2015 and cycle 4 on 11/18/2015. Follow-up ultrasound Doppler of the left arm on 11/23/2015 showed resolution of left arm DVT. During that time she developed severe debilitating left foot pain at the level of metatarsal in the dorsum of the foot and arch. She had no neuropathy in fingers or toes. Her right leg was unaffected. A stress fracture was suspected, but MRI of the left foot just showed osteoarthritis and no acute findings. With the 5th cycle of chemotherapy the treatment was changed back to FOLFOX, but the oxaliplatin was held at that point due to the foot pain. She then continued treatment with infusional 5-FU and leucovorin. She completed 12 cycles of treatment on 03/21/2016. Her other medical illnesses include hypertension, hyperlipidemia, type II diabetes, and depression. She suffered a right hemispheric stroke in 2006. She was treated for pancreatitis in 2014. She had previuosly smoked up to 1 pack of cigarettes daily. She cut down significantly in 2013. She now smokes just very occasionally. INTERIM HISTORY: Surveillance CT scans on 12/21/2016 and on 07/11/2017 showed no evidence of neoplastic process in the chest, abdomen, or pelvis. As of her follow-up visit on 07/12/2017, her CEA has remained stable and she appeared stable clinically. She continued on observation/expectant management. She underwent back surgery in [place] on 01/24/2018. Her surveillance CT scans of the chest, abdomen, and pelvis on 02/22/2018 showed centrilobular emphysematous changes in both lungs but with no evidence of a neoplastic process in the chest. The abdomen/pelvis showed the antrum of the stomach to be overall prominent with heterogeneous wall thickening of uncertain significance. In the right lobe of the liver adjacent to the gallbladder there was abnormal liver parenchyma increase in the prior exam with heterogeneous decreased enhancement suggestive of a metastatic lesion measuring 2.7 cm. An additional focus of abnormal liver parenchyma with heterogeneous decreased enhancement at the level of the falciform ligament involving the adjacent medial and lateral segments of the left lobe measured 3.8 x 4.8 cm. There was no change in the extensive cortical atrophy of the right kidney. She is seen for a scheduled visit. With evidence of limited sites of metastatic involvement in the liver, shows referred to Dr. Pichardo in [place] for consideration of liver directed therapy. His recommendation was to initiate systemic therapy and she then returned and began a trial of chemotherapy with FOLFIRI/Avastin, cycle 1 day 1 on 04/09/2018. She tolerated it with acceptable toxicity, and she was able to continue with cycle 2 on 04/23/2018 and with cycle 3 on 05/14/2018. She was seen for a scheduled visit on 05/27/2018. At that time she was having shortness of breath, cough, and slight hemoptysis. Her CT pulmonary angiogram showed a mild burden of bilateral pulmonary artery nonocclusive emboli. Also noted was lateral middle lobe peripheral pneumonia/pneumonitis, with pulmonary infarction felt to be less likely. She began anticoagulation with apixaban. Her chemotherapy was put on hold. She had follow-up at Dr. Pichardo's office on 06/19/2018. Repeat CT abdomen/pelvis showed interval response to therapy with decrease in the size of to hepatic metastatic lesion, one of which had nearly completely resolved. Also noted was development of a small amount of nonocclusive thrombus within the SMV. Infiltrate in the right middle lobe was thought to reflect a developing resolving pneumonia. She was recommended to continue chemotherapy, and she proceeded with 4th cycle on 07/01/2018. The Avastin was omitted due to the thromboembolism. As of cycle 6 on 08/06/2018 there was a significant decline in her CEA level to 10.2 ng/mL. With cycle 8 on 08/25/2018 it had further declined to 6.3 ng/mL. As of 10/07/2018 she began her 10th cycle of treatment. CEA was down 5.4 ng/mL. She was seen for a scheduled visit on 10/19/2018. Her treatment at that point was delayed due to moderately severe neutropenia, ANC 1400. She was able to continue with cycle 11 chemotherapy on 10/29/2018 with dose reductions in both the 5-FU and the irinotecan. As of 12/24/2018 she began cycle 15 of FOLFIRI. At that point her CEA level was stable at 6.3 ng/mL. Her chemotherapy subsequently was put on hold due to a significant increase in her serum creatinine. She was then given regularly scheduled IV hydration. Her restaging CT scans of the chest, abdomen, and pelvis on 02/05/2019 showed evolving pulmonary infarct versus localized atelectasis or scarring in the right middle lobe. There was decreased size of metastatic left and right lobe liver lesions, though comparison was limited due to lack of IV contrast. There was improvement in the previously noted gastric antral thickening. An enlarged right ovary appeared stable. She was referred to Dr. Pichardo for consideration of liver directed therapy. Continued observation/expectant management was recommended. Restaging PET/CT on 03/29/2019 showed residual left hepatic lobe metastasis measuring 2.4 cm with SUV 5.9 compared to 4.6 x 3.1 cm of SUV 8.3 on the prior study from February 2018. The right hepatic lobe metastasis was noted to be less than 1 cm in size and with FDG uptake barely greater than hepatic background activity. There were no other sites of metastatic disease evident on that study. At that point she remained off chemotherapy, and she continued follow-up with Dr. Pichardo. Restaging CT scans of the chest, abdomen, and pelvis on 05/26/2019 showed development of new bilateral pulmonary nodules which were worrisome for pulmonary metastatic disease, and 1 of the 2 hepatic lesions was not noted to be slightly larger by a few millimeters. With those findings, she was scheduled to return here for further chemotherapy, and she then continued treatment with cycle 16 of FOLFIRI/Avastin on 06/04/2019. At that point her CEA level had increased to 65 ng/mL. She then continued treatment at 2-week intervals. As of 07/22/2019 she began her 19th cycle. Her CEA had declined to 23.6 ng/mL. She continued with cycle 20 on 08/05/2019. As of her visit on 08/20/2019 her treatment was put on hold due to weakness and declining performance status. Her CEA had further declined to 19.1 ng/mL. She then returned and was able to restart treatment with cycle 21 of FOLFIRI/Avastin on 09/03/2019. She tolerated it well. Her further treatments were then administered with her cycle adjusted to a 3-week interval. As of 10/14/2019 her CEA had stabilized at 17.0 ng/mL. She then continued treatment at 3-week intervals. At her visit in October 2019 she had become aware of subcutaneous nodules in the abdominal wall on the right side. Restaging CT scans on 11/11/2019 showed continued decrease in the size of known pulmonary metastases, the largest measuring 5 mm. Mediastinal and hilar nodes were noted to be subcentimeter. An hepatic metastatic lesion along the falciform ligament was noted to have decreased. There were no new metastatic sites identified. Soft tissue thickening along the supraumbilical anterior abdominal wall to the right of the midline was new from September 2018 and increased compared to the PET/CT from March 2019, but unchanged from the CT in May 2019. On 12/10/2019 she underwent core needle biopsy of one of the abdominal wall nodules. Pathology was nondiagnostic. The report indicated that there was very little material present for evaluation. It was mostly fibrous tissue. There were rare glands present, some with hyperchromatism, but not sufficient enough for a definitive diagnosis. She is seen for a follow-up visit. However, subsequent excisional biopsy of the right upper quadrant abdominal wall on 01/16/2020 did confirm metastatic colorectal adenocarcinoma. The tumor was found to have intact mismatch repair proteins. With that finding, I had stopped her chemotherapy. Restaging PET/CT on 02/21/2020 showed interval development of FDG positive bilateral pulmonary nodules, consistent with disease progression. There was also progression of existing and interval development of new hepatic metastatic disease. During this time she has been referred to wound care for treatment of an ulceration on the right leg. Last week we have been notified by wound care staff that she appeared jaundiced. She was scheduled to come in the following day for IV hydration and lab studies. Her comprehensive metabolic profile showed significantly elevated total bilirubin at 8.5 mg/dL with alkaline phosphatase significantly increased at 498/105 IU/L. The SGOT and SGPT were also moderately elevated. She then had further evaluation in the emergency room with gallbladder ultrasound and CT abdomen/pelvis. The CT showed marked increase in intrahepatic biliary duct dilatation without associated dilatation of the common bile duct. Also noted was increased hydronephrosis. She was found to have urinary retention, requiring placement of indwelling Beck catheter. She is seen today with her daughter present. She has not been feeling good. She has been generally weak and has been a significant decline in her activity tolerance. ECOG score is 2. Her appetite is not real good. She has not had fever or night sweats. She does complain of generalized itching. On Sunday she developed fairly acute onset of weakness in her left arm and left leg. She also loss of balance and when she tried to walk she tended to veer to the left lower backwards. She is not having headache, but she has had some nausea. She developed diarrhea this morning. She still has indwelling Beck catheter. She is not having any significant joint or bone pain. Medications: Cyclobenzaprine HCl 1 Tablet (of 10 mg) Oral t.i.d. PRN, Diclofenac Sodium 1 Tablet (of 75 mg) Tablet, enteric coated Oral b.i.d. PRN, Eliquis 1 Tablet (of 5 mg) Oral b.i.d., Gabapentin 1 Tablet (of 300 mg) Oral t.i.d., Labetalol HCl 1 (300 mg) Tablet Oral b.i.d., Lisinopril 1 (20 mg) Tablet Oral daily, MetFORMIN HCl 2 (500 mg) Tablet Oral daily, ProAir HFA Aerosol, solution Inhalation PRN, Protonix 1 Tablet (of 40 mg) Tablet, enteric coated Oral daily, rOPINIRole HCl 1 Tablet (of 0.25 mg) Oral b.i.d. Allergies: No Known Allergies. Review of Systems: Constitutional - She is generally weak, but she is up and around and she still does a little bit of light housework. Her appetite is not very good. She does not have fever or night sweats. She has developed generalized itching. ECOG score is 2, ENMT - No sinus congestion/drainage. No mouth sores. No sore throat or difficulty swallowing, Hematologic/Lymphatic - No abnormal bruising or bleeding, Respiratory - She has shortness of breath with activity. No cough. No pleuritic pain or hemoptysis, Cardiovascular - She has had some chest pain. No palpitations, Gastrointestinal - No nausea or vomiting. No heartburn or acid reflux. She recently developed diarrhea. No blood in the stool or black stools, Genitourinary (F) - She has an indwelling Beck catheter for urinary retention, Musculoskeletal - No joint or bone pain, Integumentary - She does not have a skin rash, Neurologic - No headache. She has developed weakness on the left side, and she also has numbness in her left arm and left leg. With ambulation she has had a tendency to either veer to the left or backwards, Psychiatric - No anxiety or depression. No insomnia. Vital Signs: Performed on Mar 01, 2020 15:22 Height - 64.00 in Temperature - 97.4 F (LOW) Pulse - 64 /min Respiration - 18 /min BP - 159/83 mm(hg) (HIGH) O2 Sat - 98 % Pain - 05 Physical Examination: Constitutional - She appears generally weak, Eyes - She is overtly juandiced. Conjunctivae clear, ENMT - No lesions noted in the oral cavity, Hematologic/Lymphatic - No cervical, clavicular, or axillary adenopathy, Respiratory - Lungs sound clear with diminished air movement bilaterally, Cardiovascular - Heart rhythm is regular. There is no murmur, gallop, or rub noted, Abdomen - Soft. There is mild tenderness in the right upper quadrant. Liver and spleen are not enlarged. There is no abdominal mass or ascites noted and there is no inguinal adenopathy, Extremities - Mild edema, Integumentary - There is an open wound in the right anterior tibial area, Neurologic - She appears mentally sluggish. There is mild weakness of the left arm and left leg. Lab/Imaging: Test performed on Mar 01, 2020 14:10 Sodium 138 mmol/L Potassium 3.6 mmol/L Chloride 106 mmol/L CO2 19 mmol/L Anion Gap 16.6 BUN 22 mg/dL Creatinine 1.2 mg/dL Cr Clearance (Est) 49.3000 mL/min eGFR 44.5 mL/min Glucose 84 mg/dL Calcium 9.2 mg/dL Protein, Total 6.2 g/dL Albumin 3.7 g/dL Globulin 2.5 g/dL Bilirubin, Total 10.5 mg/dL ALT (SGPT) 165 U/L AST (SGOT) 130 U/L Alkaline Phosphatase 403 IU/L WBC 4.1 10 3/uL RBC 3.16 10 6/uL HGB 9.6 g/dL HCT 29.0 % MCV 91.8 fL MCH 30.4 pg MCHC 33.1 g/dL RDW 18.0 % Platelet Count 111 10 3/cmm MPV 13.6 fL Neutrophils 2.69 10 3/uL Lymphocytes 1.0 10 3/uL Monocytes 0.3 10 3/uL Eosinophils 0.2 10 3/uL Basophils 0.0 10 3/uL Neutrophil % 65.1 % Lymphocyte % 22.9 % Monocyte % 7.7 % Eosinophil % 3.6 % Basophils % 0.2 % NRBC % 0 % CBC Slide Review Slide Review Perform SLIDE REVIEW AGREES WITH AUTOMATED RESULTS Impression: 1. 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 Her tumor was found to be MSI stable and to harbor a KRAS mutation (12ASP). 2. She underwent right hemicolectomy on 08/06/2015 and she began adjuvant chemotherapy with modified FOLFOX in August 2015. Her treatment was complicated by port associated deep vein thrombosis and by peripheral neuropathy. Oxaliplatin was held after 4 cycles. She ultimately completed 12 cycles of treatment in March 2016. 3. In February 2018 there was a very significant increase in her CEA level and her surveillance CT scans showed 2 hepatic lesions which were consistent with metastases, one in the right lobe measuring 2.7 cm and one in the left lobe measuring 3.8 x 4.8 cm. As such, her disease at that point was stage IV (M1a). Her other medical illnesses include: 4. Hypertension. 5. Hyperlipidemia. 6. Type II diabetes. 7. Depression. 8. She has a history of pancreatitis in July 2014. 9. She has history of stroke in 2006. She was referred to Dr. Pichardo for consideration of liver directed therapy. He recommended that she first have a trial of chemotherapy. She returned here and began a course of treatment with FOLFIRI/Avastin, cycle 1 day 1 on 04/09/2018. She continued with cycle 2 on 04/23/2018 and was cycle 3 on 05/14/2018. On 05/27/2018 she presented with shortness of breath, cough, and slight hemoptysis. Her CT pulmonary angiogram showed mild burden of bilateral pulmonary artery nonocclusive emboli. There was also suspected right middle lobe pneumonia/pneumonitis, with pulmonary infarction felt to be less likely. She began anticoagulation with apixaban. Her chemotherapy has remain on hold, but she did appear to have response by CEA level and by follow-up CT scan. She continued with cycle 4 of chemotherapy on 07/01/2018, but with omission of Avastin due to the thromboembolism. She had subsequently continued treatment at 2-week intervals. As of 10/07/2018 she began her 10th cycle of treatment. CEA at that point was down to 5.4 ng/mL. Her cycle 11 treatment was delayed one week due to moderately severe neutropenia, ANC 1400. She was then able to continue treatment with dose reductions in both the 5-FU and irinotecan. As of 12/24/2018 she began cycle 15 of FOLFIRI chemotherapy. Her CEA at that point was stable at 6.3 ng/mL. Her treatment subsequently was put on hold due to a significant increase in her serum creatinine. Restaging CT scans on 02/05/2019 showed residual metastatic lesions in the left and right lobe of the liver, decreased compared to the previous study from July 2018. There were no other obvious areas of metastatic disease. She was referred to Dr. Pichardo for consideration of liver directed therapy. Continued observation/expectant management was recommended. During follow-up she has had some improvement in her performance status since stopping the chemotherapy. Her restaging PET/CT from 03/29/2019 showed residual but improved hepatic metastatic lesions compared to the study from February 2018. However, restaging CT scans on 05/26/2019 showed disease progression with development of new pulmonary metastatic disease bilaterally. There was slight enlargement of 1 of the hepatic lesions. There also was a significant increase in her CEA level. She then restarted chemotherapy with cycle 16 of FOLFIRI/Avastin on 06/04/2019. She tolerated it without acute toxicity. She was then able to continue treatment at 2-week intervals. As of 07/22/2019 she began cycle 19. At that point her CEA level had decreased significantly, to 23.6 ng/mL. She continued with cycle 20 on 08/05/2019. As of her follow-up visit on 08/20/2019 her treatment was put on hold due to weakness and declining performance status. She returned on 09/03/2019 and she was then able to continue with cycle 21 of FOLFIRI/Avastin. She then continued treatment with her cycles adjusted to a 3-week interval, which she seemed to tolerate well. As of 10/14/2019 she began her 23rd cycle. At that point her CEA had stabilized in the range of 16 to 17 ng/mL. At her followup visit on 11/05/2019 she had become aware of some small nodules in the right upper quadrant abdominal wall. Her restaging CT scans showed improvement in the metastatic lesions in the lung and liver. The abdominal wall nodules appeared stable compared to a May [address] scan, but progressed compared to an September 2018 CT and in March 2019 PET/CT. Core needle biopsy of an abdominal wall nodule on 12/10/2019 showed nondiagnostic pathology. However, subsequent excisional biopsy on 01/15/2020 did confirm metastatic colorectal adenocarcinoma. The tumor showed intact mismatch repair proteins. With that finding, I did stop her chemotherapy. Restaging PET/CT on 02/21/2020 showed evidence of disease progression with interval development of bilateral FDG avid pulmonary nodules and progression of existing and interval development of new hepatic metastatic disease. Over the past week or so she had become overtly jaundiced. Her evaluation in the emergency room on 02/27/2020 showed marked increase in intrahepatic biliary duct dilatation without associated dilatation of the common bile duct. With that finding, does appear that her jaundice is due to progression of intrahepatic disease and that it will not be amenable to stenting. At that time she did require placement of indwelling Beck catheter for urinary retention. Her overall condition has declined significantly, and she also now has developed weakness on the left side. It is uncertain whether that may be due to a mild stroke or to [employer] metastatic disease. In any case, with her obvious disease progression, her overall prognosis is extremely poor. Plan: We discussed the fact that her disease has progressed significantly and that we really do not have any effective treatment options for her, particularly in the setting of significant liver dysfunction. She is recommended now to transition to symptomatic/supportive care. Her daughter is going to be moving in with her to be her caregiver, and I will now arrange for hospice referral. I will have her start dexamethasone empirically at 4 mg twice daily, and she will start Marinol 2.5 mg twice daily for appetite. She will be given a prescription for cholestyramine to take as needed for the itching. She does want to try having the Beck catheter removed. It can be reinserted as needed. I will just plan to see her again as needed. Signed By: Gary Multani M.D. <<Signature on File>>
[2020-03-05 11:20] LABS: Basophils % 0.2 %; Eosinophils % 0.6 %; Hematocrit 29.2 % (37.0-47.0); Hemoglobin 9.4 g/dL (11.5-15.3); Lymphocytes # 1.7 10^3/uL (0.8-4.8); Lymphocytes % 27.6 %; Mean Corpuscular HGB Conc 32.2 g/dL (30.0-36.0); Mean Corpuscular Hemoglobin 29.9 pg (28.0-34.0); Monocytes # 0.4 10^3/uL (0.2-0.9); Monocytes % 6.1 %; Neutrophils # 4.07 10^3/uL (1.8-7.7); Nucleated Red Blood Cells % 0 %; Platelet Count 130 10^3/cmm (130-400); Red Blood Count 3.14 10^6/uL (4.1-5.3); Red Cell Distribution Width 18.6 % (12.1-15.1); White Blood Count 6.3 10^3/uL (4.0-10.0)
[2020-03-05 11:50] LABS: Alanine Aminotransferase 97 U/L (0-33); Albumin Level 3.7 g/dL (3.5-5.2); Alkaline Phosphatase 297 IU/L (35-105); Anion Gap 15.7 (5-19); Aspartate Amino Transferase 44 U/L (0-32); Blood Urea Nitrogen 31 mg/dL (8-23); Calcium 9.2 mg/dL (8.5-10.5); Carbon Dioxide 17 mmol/L (22-29); Chloride 107 mmol/L (98-107); Globulin 2.6 g/dL (1.3-4.6); Glomerular Filtration Rate 37.3 mL/min (90-130); Glucose 140 mg/dL (65-115); Osmolality Calculated 291 mOsm/kg (285-295); Potassium 3.7 mmol/L (3.5-5.1); Sodium 136 mmol/L (136-145); Total Bilirubin 4.5 mg/dL (0.15-1.2); Total Protein 6.3 g/dL (6.6-8.7)
[2020-03-05 12:28] LABS: Slide Review Slide Review Perform
[2020-03-10 12:22] LABS: Alanine Aminotransferase 264 U/L (0-33); Albumin Level 3.8 g/dL (3.5-5.2); Alkaline Phosphatase 488 IU/L (35-105); Aspartate Amino Transferase 251 U/L (0-32); Blood Urea Nitrogen 33 mg/dL (8-23); Calcium 9.4 mg/dL (8.5-10.5); Carbon Dioxide 19 mmol/L (22-29); Chloride 108 mmol/L (98-107); Globulin 2.6 g/dL (1.3-4.6); Glomerular Filtration Rate 44.5 mL/min (90-130); Glucose 145 mg/dL (65-115); Osmolality Calculated 296 mOsm/kg (285-295); Sodium 138 mmol/L (136-145); Total Protein 6.4 g/dL (6.6-8.7)
[2020-03-10 12:42] LABS: Anion Gap 15.4 (5-19); Potassium 4.4 mmol/L (3.5-5.1)
[2020-03-10 12:43] LABS: Total Bilirubin 7.2 mg/dL (0.15-1.2)
== END 2020-03-17 23:59 | disposition home or self-care (01) ==
LOC: ONCMED 11:38
PROVIDERS: PCP Internal Medicine; Visit Provider Internal Medicine Medical Oncology
DX: C18.4 Malignant neoplasm of transverse colon (principal); C78.7 Secondary malignant neoplasm of liver and intrahepatic bile duct; C78.01 Secondary malignant neoplasm of right lung; C78.02 Secondary malignant neoplasm of left lung; R11.2 Nausea with vomiting, unspecified; I10 Essential (primary) hypertension; E78.5 Hyperlipidemia, unspecified; E11.9 Type 2 diabetes mellitus without complications; F32.9 Major depressive disorder, single episode, unspecified; Z86.39 Personal history of other endocrine, nutritional and metabolic disease; Z86.73 Personal history of transient ischemic attack (TIA), and cerebral infarction without residual deficits
CPT/HCPCS: 80053; 85025; 96360; 99214; J7030